=== PATIENT | male | born 1960 | race Caucasian/White ===

== ENCOUNTER 2018-02-28 12:45 | Inpatient (IN) | payer MEDICARE, OTHER ==
[2018-02-28] MEDS ORDERED: oxyCODONE TAB* 5 MG TAB PO ONE (14:45)
[2018-02-28 15:10] LABS: ABS Basophils 0.1 10^3/ul (0-0.2); ABS Eosinophils 0.1 10^3/ul (0-0.6); ABS Lymphocytes 1.3 10^3/ul (1.0-4.8); ABS Monocytes 0.6 10^3/ul (0-0.8); ABS Nucleated RBC 0 10^3/ul; Eosinophil % 1.3 % (0-6); Hematocrit 41 % (42-52); Hemoglobin 14.2 g/dl (14.0-18.0); Lymphocyte % 18.3 % (25-47); Mean Corpuscular HGB Conc 34 g/dl (31-36); Mean Corpuscular Hemoglobin 30 pg (27-31); Mean Corpuscular Volume 88 fL (80-94); Mean Platelet Volume 7.8 um3 (7.4-10.4); Nucleated Red Blood Cells % 0; Platelet Count 261 10^3/ul (150-450); Red Blood Count 4.69 10^6/ul (4.0-5.4); Red Cell Distribution Width 13 % (10.5-15); White Blood Count 7.1 10^3/ul (3.5-10.8)
[2018-02-28 15:28] LABS: EGFR Non-African American 81.7 (>60)
[2018-02-28] MEDS ORDERED: LORazepam TAB(*) 1 MG PO ONE (17:04)
[2018-02-28] MEDS ORDERED: Ketorolac INJ* 30 MG/ML 1 ML VIAL IV PUSH ONE (18:15)
[2018-02-28] MEDS ORDERED: HYDROmorphone INJ* 1 MG/ML CARPUJECT SYRINGE IV ONE ×2 (18:15→21:21)
[2018-02-28] MEDS ORDERED: HYDROmorphone INJ* 2 MG/ML CARPUJECT SYRINGE ONE (18:21)
[2018-02-28] MEDS ORDERED: cefTRIAXone(*) 1 GM in NS 0.9% 50 ML* 50 ML IVPB ONE (21:04)
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
[2018-02-28] MEDS ORDERED: Acetaminophen TAB* 325 MG PO PRN ×2 (22:16→22:25)
[2018-02-28] MEDS ORDERED: HYDROcodone/ACETAMIN 5-325 MG* 1 TAB PO PRN ×2 (22:18→22:25)
[2018-02-28] MEDS ORDERED: Dextrose 50% Syringe 50 ML* 25 GM/50 ML SYRINGE IV PUSH PRN (22:33)
[2018-02-28 22:50] LABS: ABS Basophils 0.1 10^3/ul (0-0.2); ABS Eosinophils 0.1 10^3/ul (0-0.6); ABS Lymphocytes 1.8 10^3/ul (1.0-4.8); ABS Monocytes 0.7 10^3/ul (0-0.8); ABS Neutrophils 4.6 10^3/ul (1.5-7.7); ABS Nucleated RBC 0 10^3/ul; Eosinophil % 1.7 % (0-6); Hematocrit 40 % (42-52); Hemoglobin 13.6 g/dl (14.0-18.0); Lymphocyte % 25.1 % (25-47); Mean Corpuscular HGB Conc 34 g/dl (31-36); Mean Corpuscular Hemoglobin 30 pg (27-31); Mean Corpuscular Volume 89 fL (80-94); Mean Platelet Volume 7.9 um3 (7.4-10.4); Nucleated Red Blood Cells % 0.1; Platelet Count 248 10^3/ul (150-450); Red Blood Count 4.48 10^6/ul (4.0-5.4); Red Cell Distribution Width 13 % (10.5-15); White Blood Count 7.3 10^3/ul (3.5-10.8)
[2018-02-28] MEDS ORDERED: Acetaminophen TAB* 325 MG PO SCH (23:00)
[2018-02-28 23:20] LABS: EGFR Non-African American 71.2 (>60)
[2018-03-01] MEDS: Acetaminophen TAB* 325 MG PO SCH ×3 (00:02→19:43)
[2018-03-01] MEDS: oxyCODONE SR TAB(*) 10 MG TAB.SR PO SCH ×2 (00:02→08:40)
[2018-03-01] MEDS: Enoxaparin(*) 40 MG/0.4 ML SYR SUBCUT SCH ×2 (00:03→21:59)
[2018-03-01] MEDS: traZODone TAB* 100 MG PO PRN (00:03)
[2018-03-01] MEDS: Insulin LISPRO* 1 UNITS UNIT SUBCUT SCH ×5 (00:03→21:58)
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
[2018-03-01 01:48] LABS: Urine Appearance Clear; Urine Blood Negative (Negative); Urine Color Yellow; Urine Ketones Negative (Negative); Urine Protein 2+(100 mg/dL) (Negative); Urine Specific Gravity 1.023 (1.010-1.030); Urine Urobilinogen Negative (Negative)
[2018-03-01] MEDS: HYDROmorphone INJ* 2 MG/ML CARPUJECT SYRINGE IV SLOW PU PRN ×5 (02:03→21:58)
[2018-03-01] MEDS: Levothyroxine TAB* 75 MCG TAB PO SCH (05:53)
--- NOTE | 2018-03-01 07:42 | RAD ---
HISTORY: Pain status post recent fall COMPARISONS: None TECHNIQUE: Multiple contiguous axial CT scans were obtained of the cervical spine without intravenous contrast, with coronal and sagittal multiplanar reformations. FINDINGS: BRAIN: The visualized brain is unremarkable CENTRAL CANAL: Evaluation of the central canal is limited on CT technique; however, there is no obvious canalicular mass or epidural hemorrhage. ALIGNMENT: There is straightening of the cervical lordosis. VERTEBRAL BODIES: The odontoid process is intact. The atlantoaxial intervals are symmetric. The vertebral bodies are normal in attenuation, without fracture. There is multilevel anterolateral marginal osteophyte formation. JOINTS: There is uncovertebral and facet osteoarthritis. There is osteoarthritis of the atlantoaxial articulation. MUSCULATURE: Unremarkable INTERVERTEBRAL DISCS: There is diffuse loss of intervertebral disc height. AXIAL IMAGES: C2-C3: There is mild right neuroforaminal narrowing. There is no osseous central canal stenosis. C3-C4: There is severe bilateral neural foraminal narrowing. There is no osseous central canal stenosis. C4-C5: There is severe bilateral neural foraminal narrowing. There is no osseous central canal stenosis. C5-C6: There is severe right neural foraminal narrowing. There is no osseous central canal stenosis. C6-C7: There is moderate bilateral neural foraminal narrowing. There is no osseous central canal stenosis. C7-T1: There is no osseous neural foraminal narrowing or central canal stenosis. SOFT TISSUES: The visualized soft tissues of the neck are unremarkable. The prevertebral fat stripe is preserved. OTHER: There is a small right mastoid effusion. A right mastoid air cells are coalescent. IMPRESSION: 1. DEGENERATIVE DISC DISEASE AND OSTEOARTHRITIS. 2. NO ACUTE OSSEOUS INJURY OF THE CERVICAL SPINE. 3. FINDINGS SUGGESTIVE OF CHRONIC RIGHT MASTOIDITIS
--- NOTE | 2018-03-01 07:50 | RAD ---
HISTORY: Increasing pain status post fall COMPARISONS: None TECHNIQUE: Multiple contiguous axial CT scans were obtained of the lumbar spine without intravenous contrast, with coronal and sagittal multiplanar reformations. FINDINGS: There is transitional last lumbar type vertebral body which will be labeled S1 for the purposes cavity. Please note that this counting scheme is discordant with the preliminary report. SPINAL CANAL: Evaluation of the central canal is limited on CT technique and by streak artifact from metallic fusion hardware; however, there is no obvious canalicular mass or epidural hemorrhage. ALIGNMENT: The alignment is normal. VERTEBRAL BODIES: There is partial obliteration of the S1 vertebral body. The patient is status post laminectomy with spinal fusion with pedicle screws at L4 and S1. There is no displaced fracture. There is multilevel anterolateral marginal osteophyte formation. JOINTS: There is no subluxation or dislocation. MUSCULATURE: There is fatty atrophy of the inferior extent of the multifidus and erector spinae muscles. INTERVERTEBRAL DISCS: There is diffuse loss of intervertebral disc height throughout the spine. Intervertebral graft material is noted at L4-L5 and L5-S1. AXIAL IMAGES: T11-T12: There is no osseous neural foraminal area or central canal stenosis. T12-L1: There is a left paracentral posterior osteophyte versus calcified disc protrusion. There is no osseous neural foraminal area or central canal stenosis. L1-L2: There is no osseous neural foraminal narrowing or central canal stenosis. L2-L3: There is no osseous neural foraminal narrowing or central canal stenosis. L3-L4: There is marginal osteophyte formation at the neuroforamina bilaterally. There is moderate bilateral neural foraminal narrowing. There is a left paracentral disc protrusion measuring 0.5 cm in depth. Evaluation of the central canal is limited by streak artifact, but there appears to be moderate narrowing of the central canal. L4-L5: A laminectomy defect is noted. There is no osseous neural foraminal narrowing. L5-S1: A laminectomy defect is noted. There is no osseous neural foraminal narrowing. SOFT TISSUES: The visualized soft tissues of the abdomen are unremarkable. OTHER: None IMPRESSION: 1. TRANSITIONAL ANATOMY, WITH THE COUNTING SCHEME DESCRIBED ABOVE. 2. STATUS POST SPINAL FUSION. 3. LEFT-SIDED DISC PROTRUSION AT L3-L4 WITH MODERATE NARROWING OF THE CENTRAL CANAL. 4. MULTILEVEL NEURAL FORAMINAL NARROWING DESCRIBED ABOVE.
--- NOTE | 2018-03-01 07:50 | RAD ---
INDICATION: Increasing back pain status post recent fall. COMPARISON: Correlation is made with prior CTs of the cervical and lumbar spine of the same date. TECHNIQUE: Contiguous axial sections were obtained beginning above the T1 vertebra and scanning through the T11 vertebra. Images were reconstructed in the sagittal and coronal planes. FINDINGS: The vertebra are in normal alignment. No fracture is seen. There is mild to moderate degenerative disc disease in the mid and lower dorsal spine. No significant areas of spinal canal narrowing are seen. Neural foramen appear patent bilaterally at all levels. IMPRESSION: NO EVIDENCE FOR FRACTURE OR SUBLUXATION.
--- NOTE | 2018-03-01 07:51 | RAD ---
HISTORY: Pain status post recent fall COMPARISONS: None VIEWS: 4, Frontal internal rotation, external rotation, outlet, and axillary views of the left shoulder FINDINGS: BONE DENSITY: Normal. BONES: There is no displaced fracture. JOINTS: There is no arthropathy. ALIGNMENT: There is no dislocation. SOFT TISSUES: Unremarkable. OTHER FINDINGS: None. IMPRESSION: NO ACUTE OSSEOUS INJURY. IF SYMPTOMS PERSIST, RECOMMEND REPEAT IMAGING.
--- NOTE | 2018-03-01 07:51 | RAD ---
INDICATION: Right knee injury. TECHNIQUE: 4 views of the right knee were obtained. FINDINGS: The bones are in normal alignment. No joint effusion or fracture is seen. There is moderate osteoarthritic change in the medial and patellofemoral compartments. IMPRESSION: 1. NO EVIDENCE FOR FRACTURE. 2. MODERATE OSTEOARTHRITIC CHANGE.
[2018-03-01] MEDS: hydrALAZINE TAB* 25 MG PO SCH ×2 (08:38→19:44)
[2018-03-01] MEDS: Atenolol TAB* 50 MG PO SCH (08:38)
[2018-03-01] MEDS: Lisinopril TAB* 10 MG PO SCH (08:39)
[2018-03-01] MEDS: Pregabalin CAP(*) 100 MG PO SCH (08:39)
[2018-03-01] MEDS: Atorvastatin* 20 MG TAB PO SCH (08:39)
[2018-03-01] MEDS: Aspirin EC TAB* 81 MG TAB.EC PO SCH (08:39)
[2018-03-01] MEDS ORDERED: DULoxetine DR CAP* 30 MG CAP.DR PO SCH (09:00)
[2018-03-01] MEDS ORDERED: Oxycodone IR 10 MG(NF) TAB PO PRN (11:27)
--- NOTE | 2018-03-01 11:48 | PN ---
Subjective Date of Service: 03/01/18 Interval History: Patient seen and examined. States pain is 9/10, spasm like in nature. States the pain is so severe that he is "ready to bang my head against the wall". Discussed the nature of acute on chronic pain the need to find a balance of medications to help improve his issues. Denies fever, fatigue, chills, some nausea but no vomiting, no chest pain, no SOB, no further complaints. Objective Active Medications: Acetaminophen (Tylenol Tab*) 975 mg PO BID [facility] Stop: 03/03/18 22:59 Last Admin: 03/01/18 08:38 Dose: 975 mg Aspirin (Aspirin Ec Tab*) 81 mg PO DAILY [facility] Last Admin: 03/01/18 08:39 Dose: 81 mg Atenolol (Tenormin Tab*) 50 mg PO DAILY [facility] Last Admin: 03/01/18 08:38 Dose: 50 mg Atorvastatin Calcium (Lipitor*) 20 mg PO DAILY [facility] Last Admin: 03/01/18 08:39 Dose: 20 mg Dextrose (D50w Syringe 50 Ml*) 12.5 gm IV PUSH .FOR FS < 60 - SS PRN PRN Reason: FS < 60 Duloxetine HCl (Cymbalta Cap*) 30 mg PO BID [facility] Enoxaparin Sodium (Lovenox(*)) 40 mg SUBCUT Q24H [facility] Last Admin: 03/01/18 00:03 Dose: 40 mg Hydralazine HCl (Apresoline Tab*) 25 mg PO BID [facility] Last Admin: 03/01/18 08:38 Dose: 25 mg Hydromorphone HCl (Dilaudid Inj*) 0.5 mg IV SLOW PU Q4H PRN PRN Reason: PAIN Last Admin: 03/01/18 05:58 Dose: 0.5 mg Insulin Human Lispro (Humalog*) 0 units SUBCUT ACHS [facility] PRN Reason: Protocol Last Admin: 03/01/18 08:43 Dose: 9 units Levothyroxine Sodium (Synthroid Tab*) 75 mcg PO 0600 [facility] Last Admin: 03/01/18 05:53 Dose: 75 mcg Lisinopril (Prinivil Tab*) 40 mg PO DAILY [facility] Last Admin: 03/01/18 08:39 Dose: 40 mg Oxycodone HCl (Oxycontin(*)) 10 mg PO Q12HR [facility] Last Admin: 03/01/18 08:40 Dose: 10 mg Oxycodone HCl (Roxycodone Tab*) 10 mg PO Q4H PRN PRN Reason: PAIN Pregabalin (Lyrica Cap(*)) 400 mg PO DAILY [facility] Last Admin: 03/01/18 08:39 Dose: 400 mg Trazodone HCl (Desyrel Tab*) 200 mg PO BEDTIME PRN PRN Reason: INSOMNIA Last Admin: 03/01/18 00:03 Dose: 200 mg Vital Signs - 8 hr 03/01/18 03/01/18 03/01/18 04:23 04:36 05:58 Temperature 98.4 F Pulse Rate 65 Respiratory 16 20 20 Rate Blood Pressure 118/50 (mmHg) O2 Sat by Pulse 93 Oximetry 03/01/18 03/01/18 03/01/18 08:08 08:39 08:40 Temperature 98.3 F Pulse Rate 77 Respiratory 17 16 16 Rate Blood Pressure 142/76 (mmHg) O2 Sat by Pulse 95 Oximetry Oxygen Devices in Use Now: None Appearance: Alert, mild distress, well appearing Eyes: No Scleral Icterus, PERRLA Ears/Nose/Mouth/Throat: NL Teeth, Lips, Gums, Mucous Membranes Moist Neck: NL Appearance and Movements; NL JVP, Trachea Midline Respiratory: Symmetrical Chest Expansion and Respiratory Effort, Clear to Auscultation Cardiovascular: NL Sounds; No Murmurs; No JVD, RRR Abdominal: NL Sounds; No Tenderness; No Distention Extremities: No Edema, No Clubbing, Cyanosis Skin: No Rash or Ulcers Neurological: Alert and Oriented x 3, NL Gait, NL Muscle Strength and Tone Nutrition: Taking PO's Result Diagrams: 02/28/18 22:43 02/28/18 22:43 Additional Lab and Data: Lab Results 02/28/18 02/28/18 Range/Units 14:57 14:57 WBC 7.1 (3.5-10.8) 10^3/ul RBC 4.69 (4.0-5.4) 10^6/ul Hgb 14.2 (14.0-18.0) g/dl Hct 41 L (42-52) % MCV 88 (80-94) fL MCH 30 (27-31) pg MCHC 34 (31-36) g/dl RDW 13 (10.5-15) % Plt Count 261 (150-450) 10^3/ul MPV 7.8 (7.4-10.4) um3 Neut % (Auto) 70.7 (38-83) % Lymph % (Auto) 18.3 L (25-47) % [place] % (Auto) 8.9 H (0-7) % Eos % (Auto) 1.3 (0-6) % Baso % (Auto) 0.8 (0-2) % Absolute Neuts (auto) 5.0 (1.5-7.7) 10^3/ul Absolute Lymphs (auto) 1.3 (1.0-4.8) 10^3/ul Absolute Monos (auto) 0.6 (0-0.8) 10^3/ul Absolute Eos (auto) 0.1 (0-0.6) 10^3/ul Absolute Basos (auto) 0.1 (0-0.2) 10^3/ul Absolute Nucleated RBC 0 10^3/ul Nucleated RBC % 0 Sodium 133 L (139-145) mmol/L Potassium 4.3 (3.5-5.0) mmol/L Chloride 97 L (101-111) mmol/L Carbon Dioxide 25 (22-32) mmol/L Anion Gap 11 (2-11) mmol/L BUN 17 (6-24) mg/dL Creatinine 0.95 (0.67-1.17) mg/dL Est GFR ( Amer) 105.1 (>60) Est GFR (Non-Af Amer) 81.7 (>60) BUN/Creatinine Ratio 17.9 (8-20) Glucose 162 H (70-100) mg/dL Calcium 9.9 (8.6-10.3) mg/dL Total Bilirubin 0.40 (0.2-1.0) mg/dL AST 17 (13-39) U/L ALT 20 (7-52) U/L Alkaline Phosphatase 39 (34-104) U/L C-Reactive Protein 1.82 (< 5.00) mg/L Total Protein 7.8 (6.4-8.9) g/dL Albumin 4.8 (3.2-5.2) g/dL Globulin 3.0 (2-4) g/dL Albumin/Globulin Ratio 1.6 (1-3) Diagnostic Imaging: Patient Name: JEROME BENJAMIN JR Medical Record#: [id number] Ordering Physician: Trey Michel MD Acct.#: [id number] : 1960 Age: 57 Sex: M Location: [address] [place] [address]/TELEMETRY Exam Date: 02/28/182227 ADM Status: ADM Linnea Order Information: CT SPINE CERVICAL W/O Accession Number: [id number] CPT: 92582 HISTORY: Pain status post recent fall COMPARISONS: None TECHNIQUE: Multiple contiguous axial CT scans were obtained of the cervical spine without intravenous contrast, with coronal and sagittal multiplanar reformations. FINDINGS: BRAIN: The visualized brain is unremarkable CENTRAL CANAL: Evaluation of the central canal is limited on CT technique; however, there is no obvious canalicular mass or epidural hemorrhage. ALIGNMENT: There is straightening of the cervical lordosis. VERTEBRAL BODIES: The odontoid process is intact. The atlantoaxial intervals are symmetric. The vertebral bodies are normal in attenuation, without fracture. There is multilevel anterolateral marginal osteophyte formation. JOINTS: There is uncovertebral and facet osteoarthritis. There is osteoarthritis of the atlantoaxial articulation. MUSCULATURE: Unremarkable INTERVERTEBRAL DISCS: There is diffuse loss of intervertebral disc height. AXIAL IMAGES: C2-C3: There is mild right neuroforaminal narrowing. There is no osseous central canal stenosis. C3-C4: There is severe bilateral neural foraminal narrowing. There is no osseous central canal stenosis. C4-C5: There is severe bilateral neural foraminal narrowing. There is no osseous central canal stenosis. C5-C6: There is severe right neural foraminal narrowing. There is no osseous central canal stenosis. C6-C7: There is moderate bilateral neural foraminal narrowing. There is no osseous central canal stenosis. C7-T1: There is no osseous neural foraminal narrowing or central canal stenosis. SOFT TISSUES: The visualized soft tissues of the neck are unremarkable. The prevertebral fat stripe is preserved. OTHER: There is a small right mastoid effusion. A right mastoid air cells are coalescent. IMPRESSION: 1. DEGENERATIVE DISC DISEASE AND OSTEOARTHRITIS. 2. NO ACUTE OSSEOUS INJURY OF THE CERVICAL SPINE. 3. FINDINGS SUGGESTIVE OF CHRONIC RIGHT MASTOIDITIS <Electronically signed by Abhishek Mcgowan MD in [place]> 03/01/18738 Dictated By: Abhishek Mcgowan MD Dictated Date/Time: 03/01/18738 Transcribed Date/Time: 03/01/18734 Copy to: 1 of 2 Patient Name: JEROME BENJAMIN JR Medical Record#: [id number] Ordering Physician: Trey Michel MD Acct.#: [id number] : 1960 Age: 57 Sex: M Location: [facility]/TELEMET[facility] Exam Date: 02/28/182227 ADM Status: ADM Linnea Order Information: CT SPINE THORACIC W/O Accession Number: [id number] CPT: 08114 INDICATION: Increasing back pain status post recent fall. COMPARISON: Correlation is made with prior CTs of the cervical and lumbar spine of the same date. TECHNIQUE: Contiguous axial sections were obtained beginning above the T1 vertebra and scanning through the T11 vertebra. Images were reconstructed in the sagittal and coronal planes. FINDINGS: The vertebra are in normal alignment. No fracture is seen. There is mild to moderate degenerative disc disease in the mid and lower dorsal spine. No significant areas of spinal canal narrowing are seen. Neural foramen appear patent bilaterally at all levels. IMPRESSION: NO EVIDENCE FOR FRACTURE OR SUBLUXATION. <Electronically signed by Evert Almonte MD in [place]> 03/01/18745 Dictated By: Evert Almonte MD Dictated Date/Time: 03/01/18745 Transcribed Date/Time: 03/01/18739 Copy to: Patient Name: JEROME BENJAMIN JR Medical Record#: [id number] Ordering Physician: Trey Michel MD Acct.#: [id number] : 1960 Age: 57 Sex: M Location: [facility] Exam Date: 02/28/182227 ADM Status: ADM Linnea Order Information: CT SPINE LUMBAR W/O Accession Number: [id number] CPT: 23907 HISTORY: Increasing pain status post fall COMPARISONS: None TECHNIQUE: Multiple contiguous axial CT scans were obtained of the lumbar spine without intravenous contrast, with coronal and sagittal multiplanar reformations. FINDINGS: There is transitional last lumbar type vertebral body which will be labeled S1 for the purposes cavity. Please note that this counting scheme is discordant with the preliminary report. SPINAL CANAL: Evaluation of the central canal is limited on CT technique and by streak artifact from metallic fusion hardware; however, there is no obvious canalicular mass or epidural hemorrhage. ALIGNMENT: The alignment is normal. VERTEBRAL BODIES: There is partial obliteration of the S1 vertebral body. The patient is status post laminectomy with spinal fusion with pedicle screws at L4 and S1. There is no displaced fracture. There is multilevel anterolateral marginal osteophyte formation. JOINTS: There is no subluxation or dislocation. MUSCULATURE: There is fatty atrophy of the inferior extent of the multifidus and erector spinae muscles. INTERVERTEBRAL DISCS: There is diffuse loss of intervertebral disc height throughout the spine. Intervertebral graft material is noted at L4-L5 and L5-S1. AXIAL IMAGES: T11-T12: There is no osseous neural foraminal area or central canal stenosis. T12-L1: There is a left paracentral posterior osteophyte versus calcified disc protrusion. There is no osseous neural foraminal area or central canal stenosis. L1-L2: There is no osseous neural foraminal narrowing or central canal stenosis. L2-L3: There is no osseous neural foraminal narrowing or central canal stenosis. L3-L4: There is marginal osteophyte formation at the neuroforamina bilaterally. There is moderate bilateral neural foraminal narrowing. There is a left paracentral disc protrusion measuring 0.5 cm in depth. Evaluation of the central canal is limited by streak artifact, but there appears to be moderate narrowing of the central canal. L4-L5: A laminectomy defect is noted. There is no osseous neural foraminal narrowing. L5-S1: A laminectomy defect is noted. There is no osseous neural foraminal narrowing. SOFT TISSUES: The visualized soft tissues of the abdomen are unremarkable. OTHER: None IMPRESSION: 1. TRANSITIONAL ANATOMY, WITH THE COUNTING SCHEME DESCRIBED ABOVE. 2. STATUS POST SPINAL FUSION. 3. LEFT-SIDED DISC PROTRUSION AT L3-L4 WITH MODERATE NARROWING OF THE CENTRAL CANAL. 4. MULTILEVEL NEURAL FORAMINAL NARROWING DESCRIBED ABOVE. <Electronically signed by Abhishek Mcgowan MD in [place]> 03/01/18745 Dictated By: Abhishek Mcgowan MD Dictated Date/Time: 03/01/18745 Transcribed Date/Time: 03/01/18740 1 of 2 Assess/Plan/Problems-Billing Assessment: This is a 58 year old male patient with history of trauma that presents s/p mechanical fall and now with intractable spine pain. - Patient Problems (1) Acute exacerbation of chronic low back pain Code(s): M54.5 - LOW BACK PAIN; G89.29 - OTHER CHRONIC PAIN SNOMED Code(s): 848900863 Comment: - Currently under poor control since fall - Meds adjusted, will continue IV dilaudid, oxycodone 10mg Q4h PRN, oxycontin BID, lyrica 400mg daily, increase cymbalta to BID, tylenol 975mg BID, - May trial valium for spasms if no better with added oxycodone - Patient was on fentanyl patch in the past, wishes to not be on a patch - CT scans as above, should f/u outpatient with NS if he needs any revision surgery (2) History of traumatic brain injury Code(s): Z87.820 - PERSONAL HISTORY OF TRAUMATIC BRAIN INJURY SNOMED Code(s): 46975486668183 Comment: - stable (3) HTN (hypertension) Code(s): I10 - ESSENTIAL (PRIMARY) HYPERTENSION SNOMED Code(s): 72209314 Comment: - BP stable on home regimen of atenolol and lisinopril (4) G6PD deficiency Code(s): D55.0 - ANEMIA DUE TO [id number] DEHYDROGENASE DEFICIENCY SNOMED Code(s): 926284447 Comment: - Labs stable (5) Hypothyroid Code(s): E03.9 - HYPOTHYROIDISM, UNSPECIFIED SNOMED Code(s): 82738012 Comment: - Continue synthroid (6) History of pituitary adenoma Code(s): Z86.39 - PERSONAL HISTORY OF ENDO, NUTRITIONAL AND METABOLIC DISEASE SNOMED Code(s): 357770197730509 Comment: - Stable Status and Disposition: Remain inpatient for further medication titration, open for PT eval.
[2018-03-01] MEDS: oxyCODONE TAB* 5 MG TAB PO PRN ×2 (11:51→16:37)
[2018-03-01] MEDS ORDERED: Magnesium Hydroxide LIQ* 30 ML UDC PO PRN (17:46)
[2018-03-01] MEDS: Diazepam TAB(*) 5 MG PO PRN (17:53)
[2018-03-01] MEDS: DULoxetine DR CAP* 30 MG CAP.DR PO SCH (19:43)
[2018-03-01] MEDS: Docusate CAP* 100 MG PO SCH (19:45)
[2018-03-01] MEDS ORDERED: oxyCODONE SR TAB(*) 10 MG TAB.SR PO SCH ×2 (19:47→21:00)
--- NOTE | 2018-03-01 19:49 | PN ---
Hospitalist Progress Note Date of Service: 03/01/18 RN informed my person that patient's pain is still uncontrolled and frequently asks for meds before they are due despite recent changes on admission. Reviewed meds and labs as well as current plan. Will increase Oxycontin to 15 mg PO BID and will provide Oxycodone SR 5 mg PO TID x 2 days, with appropriate holding orders, then observe.
[2018-03-01] MEDS: oxyCODONE TAB* 5 MG TAB PO SCH (20:58)
[2018-03-01] MEDS: oxyCODONE SR TAB(*) 15 MG TAB.SR PO SCH (20:58)
[2018-03-01] MEDS ORDERED: oxyCODONE SR TAB(*) 15 MG TAB.SR PO SCH ×2 (21:00)
[2018-03-02] MEDS: oxyCODONE TAB* 5 MG TAB PO PRN ×4 (00:31→23:46)
[2018-03-02] MEDS: HYDROmorphone INJ* 2 MG/ML CARPUJECT SYRINGE IV SLOW PU PRN ×3 (02:04→20:57)
[2018-03-02] MEDS: Levothyroxine TAB* 75 MCG TAB PO SCH (04:55)
[2018-03-02] MEDS: Insulin LISPRO* 1 UNITS UNIT SUBCUT SCH ×4 (09:11→20:56)
[2018-03-02] MEDS: hydrALAZINE TAB* 25 MG PO SCH ×2 (09:11→20:56)
[2018-03-02] MEDS: DULoxetine DR CAP* 30 MG CAP.DR PO SCH ×2 (09:11→20:54)
[2018-03-02] MEDS: oxyCODONE TAB* 5 MG TAB PO SCH ×2 (09:11→12:45)
[2018-03-02] MEDS: Atorvastatin* 20 MG TAB PO SCH (09:11)
[2018-03-02] MEDS: Lisinopril TAB* 10 MG PO SCH (09:12)
[2018-03-02] MEDS: Acetaminophen TAB* 325 MG PO SCH ×2 (09:12→20:55)
[2018-03-02] MEDS: Aspirin EC TAB* 81 MG TAB.EC PO SCH (09:12)
[2018-03-02] MEDS: oxyCODONE SR TAB(*) 15 MG TAB.SR PO SCH ×2 (09:12→20:55)
[2018-03-02] MEDS: Docusate CAP* 100 MG PO SCH ×2 (09:12→20:54)
[2018-03-02] MEDS: Atenolol TAB* 50 MG PO SCH (09:13)
[2018-03-02] MEDS: Pregabalin CAP(*) 100 MG PO SCH (09:13)
[2018-03-02] MEDS ORDERED: Dexamethasone IV* 4 MG/ML 1 ML (4 MG) IV SLOW PU ONE (10:47)
[2018-03-02] MEDS ORDERED: Diazepam INJ (NF) 5 MG/ML 10 ML VIAL (50 MG TOTAL) IV ONE (10:48)
--- NOTE | 2018-03-02 11:07 | PN ---
Subjective Date of Service: 03/02/18 Interval History: PAtient seen and examined. Still with extreme spasm and breakthrough pain. States at one point around 2 am he had some relief but this AM it became worse again. He shows no acute neuro deficits, denies SOB, no chest pain, no vomiting , intermittent nausea when pain increases. Objective Active Medications: Acetaminophen (Tylenol Tab*) 975 mg PO BID [facility] Stop: 03/03/18 22:59 Last Admin: 03/02/18 09:12 Dose: 975 mg Aspirin (Aspirin Ec Tab*) 81 mg PO DAILY [facility] Last Admin: 03/02/18 09:12 Dose: 81 mg Atenolol (Tenormin Tab*) 50 mg PO DAILY [facility] Last Admin: 03/02/18 09:13 Dose: 50 mg Atorvastatin Calcium (Lipitor*) 20 mg PO DAILY [facility] Last Admin: 03/02/18 09:11 Dose: 20 mg Dextrose (D50w Syringe 50 Ml*) 12.5 gm IV PUSH .FOR FS < 60 - SS PRN PRN Reason: FS < 60 Diazepam (Valium Tab(*)) 5 mg PO Q8H PRN PRN Reason: back spasms Last Admin: 03/01/18 17:53 Dose: 5 mg Diazepam (Valium Syringe*) 2 mg IV ONCE ONE Stop: 03/02/18 10:49 Docusate Sodium (Colace Cap*) 100 mg PO BID [facility] Last Admin: 03/02/18 09:12 Dose: 100 mg Duloxetine HCl (Cymbalta Cap*) 30 mg PO BID [facility] Last Admin: 03/02/18 09:11 Dose: 30 mg Enoxaparin Sodium (Lovenox(*)) 40 mg SUBCUT Q24H [facility] Last Admin: 03/01/18 21:59 Dose: 40 mg Hydralazine HCl (Apresoline Tab*) 25 mg PO BID [facility] Last Admin: 03/02/18 09:11 Dose: 25 mg Insulin Human Lispro (Humalog*) 0 units SUBCUT ACHS [facility] PRN Reason: Protocol Last Admin: 03/02/18 09:11 Dose: 3 units Levothyroxine Sodium (Synthroid Tab*) 75 mcg PO 0600 [facility] Last Admin: 03/02/18 04:55 Dose: 75 mcg Lisinopril (Prinivil Tab*) 40 mg PO DAILY [facility] Last Admin: 03/02/18 09:12 Dose: 40 mg Magnesium Hydroxide (Milk Of Magnesia Liq*) 30 ml PO BID PRN PRN Reason: CONSTIPATION Ondansetron HCl (Zofran Odt Tab*) 4 mg PO Q6H PRN PRN Reason: NAUSEA/VOMITING Oxycodone HCl (Roxycodone Tab*) 10 mg PO Q4H PRN PRN Reason: PAIN Last Admin: 03/02/18 04:55 Dose: 10 mg Oxycodone HCl (Oxycontin(*)) 15 mg PO Q12HR [facility] Last Admin: 03/02/18 09:12 Dose: 15 mg Oxycodone HCl (Roxycodone Tab*) 5 mg PO TID [facility] Stop: 03/02/18 20:59 Last Admin: 03/02/18 09:11 Dose: 5 mg Pregabalin (Lyrica Cap(*)) 400 mg PO DAILY [facility] Last Admin: 03/02/18 09:13 Dose: 400 mg Trazodone HCl (Desyrel Tab*) 200 mg PO BEDTIME PRN PRN Reason: INSOMNIA Last Admin: 03/01/18 00:03 Dose: 200 mg Vital Signs - 8 hr 03/02/18 03/02/18 03/02/18 03:39 04:15 04:55 Temperature 97.7 F Pulse Rate 68 Respiratory 12 16 12 Rate Blood Pressure 123/65 (mmHg) O2 Sat by Pulse 95 Oximetry 03/02/18 03/02/18 03/02/18 06:30 07:55 08:40 Temperature 98.5 F Pulse Rate 69 Respiratory 12 16 14 Rate Blood Pressure 150/76 (mmHg) O2 Sat by Pulse 97 Oximetry 03/02/18 03/02/18 03/02/18 09:11 09:12 09:13 Temperature Pulse Rate Respiratory 14 14 16 Rate Blood Pressure (mmHg) O2 Sat by Pulse Oximetry Oxygen Devices in Use Now: None Appearance: Alert, mild distress Eyes: No Scleral Icterus, PERRLA Ears/Nose/Mouth/Throat: NL Teeth, Lips, Gums, Mucous Membranes Moist Neck: NL Appearance and Movements; NL JVP, Trachea Midline Respiratory: Symmetrical Chest Expansion and Respiratory Effort, Clear to Auscultation Cardiovascular: NL Sounds; No Murmurs; No JVD, RRR, No Edema Abdominal: NL Sounds; No Tenderness; No Distention Extremities: No Edema, No Clubbing, Cyanosis Skin: No Rash or Ulcers, - - mildly diaphoretic Neurological: Alert and Oriented x 3, NL Sensation, NL Gait, NL Muscle Strength and Tone Nutrition: Taking PO's Result Diagrams: 02/28/18 22:43 02/28/18 22:43 Additional Lab and Data: Lab Results 02/28/18 02/28/18 Range/Units 14:57 14:57 WBC 7.1 (3.5-10.8) 10^3/ul RBC 4.69 (4.0-5.4) 10^6/ul Hgb 14.2 (14.0-18.0) g/dl Hct 41 L (42-52) % MCV 88 (80-94) fL MCH 30 (27-31) pg MCHC 34 (31-36) g/dl RDW 13 (10.5-15) % Plt Count 261 (150-450) 10^3/ul MPV 7.8 (7.4-10.4) um3 Neut % (Auto) 70.7 (38-83) % Lymph % (Auto) 18.3 L (25-47) % Elbert % (Auto) 8.9 H (0-7) % Eos % (Auto) 1.3 (0-6) % Baso % (Auto) 0.8 (0-2) % Absolute Neuts (auto) 5.0 (1.5-7.7) 10^3/ul Absolute Lymphs (auto) 1.3 (1.0-4.8) 10^3/ul Absolute Monos (auto) 0.6 (0-0.8) 10^3/ul Absolute Eos (auto) 0.1 (0-0.6) 10^3/ul Absolute Basos (auto) 0.1 (0-0.2) 10^3/ul Absolute Nucleated RBC 0 10^3/ul Nucleated RBC % 0 Sodium 133 L (139-145) mmol/L Potassium 4.3 (3.5-5.0) mmol/L Chloride 97 L (101-111) mmol/L Carbon Dioxide 25 (22-32) mmol/L Anion Gap 11 (2-11) mmol/L BUN 17 (6-24) mg/dL Creatinine 0.95 (0.67-1.17) mg/dL Est GFR ( Amer) 105.1 (>60) Est GFR (Non-Af Amer) 81.7 (>60) BUN/Creatinine Ratio 17.9 (8-20) Glucose 162 H (70-100) mg/dL Calcium 9.9 (8.6-10.3) mg/dL Total Bilirubin 0.40 (0.2-1.0) mg/dL AST 17 (13-39) U/L ALT 20 (7-52) U/L Alkaline Phosphatase 39 (34-104) U/L C-Reactive Protein 1.82 (< 5.00) mg/L Total Protein 7.8 (6.4-8.9) g/dL Albumin 4.8 (3.2-5.2) g/dL Globulin 3.0 (2-4) g/dL Albumin/Globulin Ratio 1.6 (1-3) Diagnostic Imaging: Patient Name: JEROME BENJAMIN JR Medical Record#: [id number] Ordering Physician: Trey Michel MD Acct.#: [id number] : 1960 Age: 57 Sex: M Location: [address] [place] [address]/TELEMETRY Exam Date: 02/28/182227 ADM Status: ADM Linnea Order Information: CT SPINE CERVICAL W/O Accession Number: [id number] CPT: 78722 HISTORY: Pain status post recent fall COMPARISONS: None TECHNIQUE: Multiple contiguous axial CT scans were obtained of the cervical spine without intravenous contrast, with coronal and sagittal multiplanar reformations. FINDINGS: BRAIN: The visualized brain is unremarkable CENTRAL CANAL: Evaluation of the central canal is limited on CT technique; however, there is no obvious canalicular mass or epidural hemorrhage. ALIGNMENT: There is straightening of the cervical lordosis. VERTEBRAL BODIES: The odontoid process is intact. The atlantoaxial intervals are symmetric. The vertebral bodies are normal in attenuation, without fracture. There is multilevel anterolateral marginal osteophyte formation. JOINTS: There is uncovertebral and facet osteoarthritis. There is osteoarthritis of the atlantoaxial articulation. MUSCULATURE: Unremarkable INTERVERTEBRAL DISCS: There is diffuse loss of intervertebral disc height. AXIAL IMAGES: C2-C3: There is mild right neuroforaminal narrowing. There is no osseous central canal stenosis. C3-C4: There is severe bilateral neural foraminal narrowing. There is no osseous central canal stenosis. C4-C5: There is severe bilateral neural foraminal narrowing. There is no osseous central canal stenosis. C5-C6: There is severe right neural foraminal narrowing. There is no osseous central canal stenosis. C6-C7: There is moderate bilateral neural foraminal narrowing. There is no osseous central canal stenosis. C7-T1: There is no osseous neural foraminal narrowing or central canal stenosis. SOFT TISSUES: The visualized soft tissues of the neck are unremarkable. The prevertebral fat stripe is preserved. OTHER: There is a small right mastoid effusion. A right mastoid air cells are coalescent. IMPRESSION: 1. DEGENERATIVE DISC DISEASE AND OSTEOARTHRITIS. 2. NO ACUTE OSSEOUS INJURY OF THE CERVICAL SPINE. 3. FINDINGS SUGGESTIVE OF CHRONIC RIGHT MASTOIDITIS <Electronically signed by Abhishek Mcgowan MD in [place]> 03/01/18738 Dictated By: Abhishek Mcgowan MD Dictated Date/Time: 03/01/18738 Transcribed Date/Time: 03/01/18734 Copy to: 1 of 2 Patient Name: JEROME BENJAMIN JR Medical Record#: [id number] Ordering Physician: rTey Michel MD Acct.#: [id number] : 1960 Age: 57 Sex: M Location: [address] [place] [address] MEDICAL/TELEMETRY Exam Date: 02/28/182227 ADM Status: ADM Linnea Order Information: CT SPINE THORACIC W/O Accession Number: [id number] CPT: 13717 INDICATION: Increasing back pain status post recent fall. COMPARISON: Correlation is made with prior CTs of the cervical and lumbar spine of the same date. TECHNIQUE: Contiguous axial sections were obtained beginning above the T1 vertebra and scanning through the T11 vertebra. Images were reconstructed in the sagittal and coronal planes. FINDINGS: The vertebra are in normal alignment. No fracture is seen. There is mild to moderate degenerative disc disease in the mid and lower dorsal spine. No significant areas of spinal canal narrowing are seen. Neural foramen appear patent bilaterally at all levels. IMPRESSION: NO EVIDENCE FOR FRACTURE OR SUBLUXATION. <Electronically signed by Evert Almonte MD in [place]> 03/01/18745 Dictated By: Evert Almonte MD Dictated Date/Time: 03/01/18745 Transcribed Date/Time: 03/01/18739 Copy to: Patient Name: JEROME BENJAMIN JR Medical Record#: [id number] Ordering Physician: Trey Michel MD Acct.#: [id number] : 1960 Age: 57 Sex: M Location: [address] [place] [address] MEDICAL/TELEMETRY Exam Date: 02/28/182227 ADM Status: ADM Linnea Order Information: CT SPINE LUMBAR W/O Accession Number: [id number] CPT: 96424 HISTORY: Increasing pain status post fall COMPARISONS: None TECHNIQUE: Multiple contiguous axial CT scans were obtained of the lumbar spine without intravenous contrast, with coronal and sagittal multiplanar reformations. FINDINGS: There is transitional last lumbar type vertebral body which will be labeled S1 for the purposes cavity. Please note that this counting scheme is discordant with the preliminary report. SPINAL CANAL: Evaluation of the central canal is limited on CT technique and by streak artifact from metallic fusion hardware; however, there is no obvious canalicular mass or epidural hemorrhage. ALIGNMENT: The alignment is normal. VERTEBRAL BODIES: There is partial obliteration of the S1 vertebral body. The patient is status post laminectomy with spinal fusion with pedicle screws at L4 and S1. There is no displaced fracture. There is multilevel anterolateral marginal osteophyte formation. JOINTS: There is no subluxation or dislocation. MUSCULATURE: There is fatty atrophy of the inferior extent of the multifidus and erector spinae muscles. INTERVERTEBRAL DISCS: There is diffuse loss of intervertebral disc height throughout the spine. Intervertebral graft material is noted at L4-L5 and L5-S1. AXIAL IMAGES: T11-T12: There is no osseous neural foraminal area or central canal stenosis. T12-L1: There is a left paracentral posterior osteophyte versus calcified disc protrusion. There is no osseous neural foraminal area or central canal stenosis. L1-L2: There is no osseous neural foraminal narrowing or central canal stenosis. L2-L3: There is no osseous neural foraminal narrowing or central canal stenosis. L3-L4: There is marginal osteophyte formation at the neuroforamina bilaterally. There is moderate bilateral neural foraminal narrowing. There is a left paracentral disc protrusion measuring 0.5 cm in depth. Evaluation of the central canal is limited by streak artifact, but there appears to be moderate narrowing of the central canal. L4-L5: A laminectomy defect is noted. There is no osseous neural foraminal narrowing. L5-S1: A laminectomy defect is noted. There is no osseous neural foraminal narrowing. SOFT TISSUES: The visualized soft tissues of the abdomen are unremarkable. OTHER: None IMPRESSION: 1. TRANSITIONAL ANATOMY, WITH THE COUNTING SCHEME DESCRIBED ABOVE. 2. STATUS POST SPINAL FUSION. 3. LEFT-SIDED DISC PROTRUSION AT L3-L4 WITH MODERATE NARROWING OF THE CENTRAL CANAL. 4. MULTILEVEL NEURAL FORAMINAL NARROWING DESCRIBED ABOVE. <Electronically signed by Abhishek Mcgowan MD in [place]> 03/01/18745 Dictated By: Abhishek Mcgowan MD Dictated Date/Time: 03/01/18745 Transcribed Date/Time: 03/01/18740 1 of 2 Assess/Plan/Problems-Billing Assessment: This is a 58 year old male patient with history of trauma that presents s/p mechanical fall and now with intractable spine pain. - Patient Problems (1) Acute exacerbation of chronic low back pain Code(s): M54.5 - LOW BACK PAIN; G89.29 - OTHER CHRONIC PAIN SNOMED Code(s): 239391343 Comment: - Remains with poor control since admission - Currently on oxycodone 10mg Q4h PRN, oxycontin 15mg BID, lyrica 400mg daily, increased cymbalta to BID, tylenol 975mg BID, added valium yesterday - Had added doses of oxy TID overnight - Patient was on fentanyl patch in the past, wishes to not be on a patch - CT scans as above, should f/u outpatient with [facility] if he needs any revision surgery, no evidence of cord compression at this time - Will give one dose IV decadron now with one dose IV valium to control spasms , monitor for effect - Discussed with pain clinic, will consult Dr. Moore for additional recs for DC planning - Discussed f/u with neurosurgery at the [facility], patient agreeable (2) History of traumatic brain injury Code(s): Z87.820 - PERSONAL HISTORY OF TRAUMATIC BRAIN INJURY SNOMED Code(s): 93374318589944 Comment: - stable (3) HTN (hypertension) Code(s): I10 - ESSENTIAL (PRIMARY) HYPERTENSION SNOMED Code(s): 13301664 Comment: - BP stable on home regimen of atenolol and lisinopril (4) G6PD deficiency Code(s): D55.0 - ANEMIA DUE TO OFSPONM-2-KLRIZMCCN DEHYDROGENASE DEFICIENCY SNOMED Code(s): 508578965 Comment: - Labs stable (5) Hypothyroid Code(s): E03.9 - HYPOTHYROIDISM, UNSPECIFIED SNOMED Code(s): 04025184 Comment: - Continue synthroid (6) History of pituitary adenoma Code(s): Z86.39 - PERSONAL HISTORY OF ENDO, NUTRITIONAL AND METABOLIC DISEASE SNOMED Code(s): 091816197846632 Comment: - Stable Status and Disposition: Dispo planning to home if pain improves today with f/u at [facility] and the [facility]. [facility] needs to make referral for Pain Clinic, we cannot do as inpatient.
[2018-03-02] MEDS: Ondansetron ODT TAB* 4 MG PO PRN ×2 (12:45→20:56)
[2018-03-02] MEDS: Diazepam TAB(*) 5 MG PO PRN (16:52)
[2018-03-02] MEDS: traZODone TAB* 100 MG PO PRN (21:59)
[2018-03-02] MEDS: Enoxaparin(*) 40 MG/0.4 ML SYR SUBCUT SCH (21:59)
[2018-03-03] MEDS ORDERED: Ibuprofen TAB* 800 MG PO ONE (01:13)
[2018-03-03] MEDS: Levothyroxine TAB* 75 MCG TAB PO SCH (05:37)
[2018-03-03] MEDS: oxyCODONE SR TAB(*) 15 MG TAB.SR PO SCH (07:41)
[2018-03-03] MEDS: Pregabalin CAP(*) 100 MG PO SCH (07:41)
[2018-03-03] MEDS: DULoxetine DR CAP* 30 MG CAP.DR PO SCH ×2 (07:41→20:45)
[2018-03-03] MEDS: hydrALAZINE TAB* 25 MG PO SCH ×2 (07:41→22:02)
[2018-03-03] MEDS: Acetaminophen TAB* 325 MG PO SCH ×2 (07:41→20:45)
[2018-03-03] MEDS: Atenolol TAB* 50 MG PO SCH (07:41)
[2018-03-03] MEDS: Lisinopril TAB* 10 MG PO SCH (07:41)
[2018-03-03] MEDS: Docusate CAP* 100 MG PO SCH ×2 (07:42→20:44)
[2018-03-03] MEDS: Aspirin EC TAB* 81 MG TAB.EC PO SCH (07:42)
[2018-03-03] MEDS: Atorvastatin* 20 MG TAB PO SCH (07:42)
[2018-03-03] MEDS: Insulin LISPRO* 1 UNITS UNIT SUBCUT SCH ×4 (07:59→20:56)
[2018-03-03] MEDS: HYDROmorphone INJ* 2 MG/ML CARPUJECT SYRINGE IV SLOW PU PRN (09:35)
[2018-03-03] MEDS: oxyCODONE TAB* 5 MG TAB PO PRN ×3 (10:33→19:15)
[2018-03-03] MEDS: Diazepam TAB(*) 5 MG PO PRN (10:33)
[2018-03-03] MEDS ORDERED: Pneumococcal *Vac Polyvalent 0.5 ML VIAL IM ONE (16:00)
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
[2018-03-03] MEDS: Methocarbamol TAB* 500 MG PO SCH ×2 (17:04→20:47)
[2018-03-03] MEDS: oxyCODONE SR TAB(*) 20 MG TAB.SR PO SCH (20:44)
[2018-03-03] MEDS: traZODone TAB* 100 MG PO PRN (20:45)
[2018-03-03] MEDS ORDERED: Methocarbamol TAB* 500 MG PO SCH (21:00)
[2018-03-03] MEDS ORDERED: Morphine VIAL* 4 MG/ML VIAL (1 ml vial) IV ONE (21:30)
[2018-03-03] MEDS: Enoxaparin(*) 40 MG/0.4 ML SYR SUBCUT SCH (22:03)
[2018-03-04] MEDS: Levothyroxine TAB* 75 MCG TAB PO SCH (06:03)
[2018-03-04] MEDS: Methocarbamol TAB* 500 MG PO SCH ×2 (08:42→14:32)
[2018-03-04] MEDS: Atenolol TAB* 50 MG PO SCH (08:42)
[2018-03-04] MEDS: DULoxetine DR CAP* 30 MG CAP.DR PO SCH (08:43)
[2018-03-04] MEDS: oxyCODONE TAB* 5 MG TAB PO PRN ×2 (08:43→12:34)
[2018-03-04] MEDS: hydrALAZINE TAB* 25 MG PO SCH (08:43)
[2018-03-04] MEDS: Lisinopril TAB* 10 MG PO SCH (08:43)
[2018-03-04] MEDS: Docusate CAP* 100 MG PO SCH (08:44)
[2018-03-04] MEDS: oxyCODONE SR TAB(*) 20 MG TAB.SR PO SCH (08:44)
[2018-03-04] MEDS: Atorvastatin* 20 MG TAB PO SCH (08:44)
[2018-03-04] MEDS: Aspirin EC TAB* 81 MG TAB.EC PO SCH (08:44)
[2018-03-04] MEDS: Pregabalin CAP(*) 100 MG PO SCH (08:45)
[2018-03-04] MEDS: Insulin LISPRO* 1 UNITS UNIT SUBCUT SCH ×2 (08:48→12:36)
[2018-03-04] MEDS: Ondansetron ODT TAB* 4 MG PO PRN (09:52)
[2018-03-04] MEDS ORDERED: Morphine VIAL* 4 MG/ML VIAL (1 ml vial) IV ONE (10:12)
[2018-03-04 10:37] LABS: ABS Basophils 0.1 10^3/ul (0-0.2); ABS Eosinophils 0.1 10^3/ul (0-0.6); ABS Lymphocytes 1.8 10^3/ul (1.0-4.8); ABS Monocytes 0.8 10^3/ul (0-0.8); ABS Neutrophils 4.8 10^3/ul (1.5-7.7); ABS Nucleated RBC 0 10^3/ul; Eosinophil % 1.3 % (0-6); Hematocrit 40 % (42-52); Hemoglobin 13.4 g/dl (14.0-18.0); Mean Corpuscular HGB Conc 34 g/dl (31-36); Mean Corpuscular Hemoglobin 30 pg (27-31); Mean Corpuscular Volume 89 fL (80-94); Mean Platelet Volume 7.6 um3 (7.4-10.4); Nucleated Red Blood Cells % 0; Platelet Count 239 10^3/ul (150-450); Red Blood Count 4.46 10^6/ul (4.0-5.4); Red Cell Distribution Width 13 % (10.5-15); White Blood Count 7.7 10^3/ul (3.5-10.8)
[2018-03-04 11:03] LABS: EGFR Non-African American 65.3 (>60)
[2018-03-04 12:00] VITALS: BP 116/66
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
== END 2018-03-04 15:21 | disposition swing bed (61) | DRG 93 ==
LOC: ED 12:45 → MEDTELE 22:13 → OBSVTOIN 03-01 12:00 → MED 03-01 13:25
PROVIDERS: ADMIT Student in an Organized Health Care Education/Training Program; ATTEND Internal Medicine
DX: G89.29 Other chronic pain (principal); E03.9 Hypothyroidism, unspecified; I10 Essential (primary) hypertension; M21.372 Foot drop, left foot; R20.0 Anesthesia of skin; D55.0 Anemia due to glucose-6-phosphate dehydrogenase [G6PD] deficiency; E66.9 Obesity, unspecified; E11.9 Type 2 diabetes mellitus without complications; G47.33 Obstructive sleep apnea (adult) (pediatric); E78.5 Hyperlipidemia, unspecified; F32.9 Major depressive disorder, single episode, unspecified; M51.16 Intervertebral disc disorders with radiculopathy, lumbar region; M47.812 Spondylosis without myelopathy or radiculopathy, cervical region; R53.1 Weakness; M25.561 Pain in right knee; M25.512 Pain in left shoulder; Z23 Encounter for immunization; Z88.2 Allergy status to sulfonamides; Z82.49 Family history of ischemic heart disease and other diseases of the circulatory system; Z87.820 Personal history of traumatic brain injury; Z80.0 Family history of malignant neoplasm of digestive organs; Z83.3 Family history of diabetes mellitus; Z68.35 Body mass index [BMI] 35.0-35.9, adult; Z79.82 Long term (current) use of aspirin; Z79.84 Long term (current) use of oral hypoglycemic drugs; Z98.1 Arthrodesis status; Z91.81 History of falling; Z86.39 Personal history of other endocrine, nutritional and metabolic disease
CPT/HCPCS: 36415; 72125; 72128; 72131; 80048; 80053; 80061; 81003; 81015; 82306; 83036; 83721; 84443; 85025; 86140; 87086; 87476; 87798; 90732; 99284; A9270-GY; G8978-GP-CJ; G8979-GP-CI; G8987-GO-CK; G8988-GO-CI; G8989-GO-CI; J0696; J1100; J1170; J1650; J1885; J2270; J3360

== ENCOUNTER 2018-07-24 13:10 | Inpatient (IN) | payer MEDICARE, OTHER ==
[2018-07-24] MEDS ORDERED: NS 0.9% 1000 ML* 1,000 ML IV ONE (13:43)
[2018-07-24] MEDS ORDERED: Ondansetron INJ* 2 MG/ML VIAL IV ONE ×2 (13:43→15:35)
[2018-07-24] MEDS ORDERED: HYDROmorphone INJ* 1 MG/ML CARPUJECT SYRINGE IV ONE ×2 (13:43→15:46)
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
--- OUTSIDE RECORDS SUMMARY | 2018-07-24 14:14 | XMS REPORT ---
:1960 External Reference #:[id number] [facility] Address [address] [place] [address] [address] [place] [address] Phone [phone] Care Team Providers Name Role Phone Sebastian Baugh M.D. Primary Care Physician Unavailable Payers Type Date Identification Numbers Payment Provider Subscriber Medicare Primary Policy Number: [id number] Medicare Jesse Julien JR PayID: [id number] [address] [facility] [place] [address] Medigap Part B Expires: 2018 Policy Number: Medicare Jesse Julien JR [id number] PayID: [id number] [place] [address] Commercial Policy Number: [id number] [facility] Jesse Julien JR PayID: [id number] [address] [place] [address] Problems Date Description Provider Status Onset: 01/25/2015 Chronic headache disorder Radha Lim M.D. Active Onset: 01/25/2015 Dissociative convulsions Radha Lim M.D. Active Onset: 01/25/2015 Lyme disease Radha Lim M.D. Active Onset: 01/25/2015 Sleep apnea Radha Lim M.D. Active Onset: 02/15/2018 Migraine without aura, not refractory Delmer Camejo M.D. Active Onset: 02/15/2018 Amnesia Delmer Camejo M.D. Active Onset: 02/15/2018 Communicating hydrocephalus Delmer Camejo M.D. Active Onset: 02/15/2018 Transient altered mental status Delmer Camejo M.D. Active Onset: 02/15/2018 Chronic fatigue syndrome Delmer Camejo M.D. Active Onset: 04/15/2018 Backache Delmer Camejo M.D. Active Onset: 04/15/2018 Chronic pain Delmer Camejo M.D. 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 Active central nervous system Onset: 06/09/2018 Muscle weakness Delmer Camejo M.D. Active Onset: 06/30/2018 Normal pressure hydrocephalus Dk Uribe M.D. Active Onset: 06/25/2018 Nervous system symptoms Delmer Camejo M.D. Active Family History Date Family Member(s) Problem(s) Comments General Diabetes General Hypertension Social History Type Date Description Comments Marital Status Work Status Retired [employer] Left-Handed ETOH Use Rarely consumes alcohol Glass of wine, has not had since Sep 2017 Smoking Patient has never smoked Recreational Drug Use Denies Drug Use Daily Caffeine Consumes on average 1 cup of regular coffee per day Allergies, Adverse Reactions, Alerts Date Description Reaction Status Severity Comments 05/13/2013 Aspirin active 05/13/2013 Sulfa Antibiotics active 12/13/2013 Penicillins Increased bleeding active Medications Medication Date Status Form Strength Qnty SIG Indications Ordering Provider Ibuprofen 11/05/ Active Tablets 800mg 60tab 1 tab by G43.009 Radha Cowart s mouth for sita Lim M.D. Lyrica 12/13/ Active Capsules 100mg 120ca 2 by mouth Delmer 2013 ps twice a Cholo Camejo day Lisinopril / Active Tablets 40mg 1 po qd Unknown 0000 Hydralazine / Active Tablets 20mg 1 tab po Unknown HCL 0000 bid Atenolol / Active Tablets 50mg 1 po qd Unknown 0000 Synthroid / Active Tablets 175mcg 1 po qd Unknown 0000 Zocor / Active Tablets 40mg 1 po qday Unknown 0000 Aspirin / Active Tablets 81mg 1 po qd Unknown 0000 Trazodone HCL / Active Tablets 50mg 30tab 3 tablet Unknown 0000 s at bedtime as needed Glipizide 00/00/ Active Tablets 10mg 1 by mouth Unknown 0000 bid Metformin HCL 00/ Active Tablets 1000mg 1 by mouth Unknown 0000 twice a day Androgel 00/ Active Gel apply 5 Unknown 0000 pumps daily. Oxycodone HCL 0000/ Active Tablets 10mg as needed Unknown 0000 Oxycodone HCL / Active Tab ER 12H 20mg 1 tab Unknown ER 0000 Abuse-Det three times a day Lorazepam 04/05/ Hx Tablets 1mg 2tabs 1 tablet Charmaine 2017 - po 30 min Cowdery, 04/14/ prior to M.D. 2017 MRI may take 1 more tablet if still anxious Lyrica 07/29/ Hx Capsules 50mg 180ca 3 tabs by Radha Miller 2012 - ps mouth at [facility], 12/13/ bedtime as M.D. 2013 directed Cymbalta / Hx Caps DR 30mg 90cap 1 po qam Unknown 0000 - Part s 2013 Fentanyl / Hx Patches 50mcg/HR 10uni one every Unknown 0000 - 72HR ts 3rd day 2016 Buspirone HCL / Hx Tablets 7.5mg 60tab 1.5 by Unknown 0000 - s mouth po 03/28/ qd 2013 Testosterone / Hx Solution 200mg/ml 1 Unknown Cypionate 0000 - injection 10/29/ every week 2016 Hydrocodone-Ac / Hx Tablets 5-325mg 1-2 tabs Unknown etaminophen 0000 - twice a 06/09/ day as 2018 needed. Doxycycline / Hx Capsules 100mg 1 tablet Unknown Monohydrate 0000 - by mouth 06/24/ every 12 2018 hours Vital Signs Date Vital Result Comment 06/30/2018 Height 72 inches 6'0" Weight 250.00 lb BP Systolic Sitting 118 mmHg BP Diastolic Sitting 80 mmHg Pain Level 4 BMI (Body Mass Index) 33.9 kg/m2 06/25/2018 Height 72 inches 6'0" Weight 250.00 lb Heart Rate 64 /min BP Systolic 108 mmHg BP Diastolic 66 mmHg Respiratory Rate 20 /min BMI (Body Mass Index) 33.9 kg/m2 06/09/2018 Height 72 inches 6'0" Weight 250.00 lb Heart Rate 78 /min BP Systolic Sitting 123 mmHg BP Diastolic Sitting 80 mmHg BMI (Body Mass Index) 33.9 kg/m2 04/15/2018 Height 72 inches 6'0" Weight 253.38 lb BP Systolic 118 mmHg BP Diastolic 72 mmHg BMI (Body Mass Index) 34.4 kg/m2 02/15/2018 Height 72 inches 6'0" Weight 255.00 lb Heart Rate 68 /min BP Systolic Sitting 144 mmHg BP Diastolic Sitting 82 mmHg Respiratory Rate 16 /min BMI (Body Mass Index) 34.6 kg/m2 11/05/2017 Height 72 inches 6'0" Weight 255.00 lb Heart Rate 78 /min BP Systolic Sitting 138 mmHg BP Diastolic Sitting 88 mmHg Respiratory Rate 16 /min BMI (Body Mass Index) 34.6 kg/m2 10/30/2016 Height 72 inches 6'0" Weight 255.00 lb Heart Rate 74 /min BP Systolic Sitting 132 mmHg BP Diastolic Sitting 82 mmHg Respiratory Rate 16 /min BMI (Body Mass Index) 34.6 kg/m2 11/01/2015 Height 72 inches 6'0" Weight 250.00 lb Heart Rate 60 /min BP Systolic Sitting 118 mmHg BP Diastolic Sitting 62 mmHg Respiratory Rate 14 /min BMI (Body Mass Index) 33.9 kg/m2 01/25/2015 Height 72 inches 6'0" Weight 257.00 lb Heart Rate 72 /min BP Systolic Sitting 130 mmHg BP Diastolic Sitting 72 mmHg Respiratory Rate 16 /min BMI (Body Mass Index) 34.9 kg/m2 04/27/2014 Height 72 inches 6'0" Weight 238.00 lb Heart Rate 60 /min BP Systolic Sitting 122 mmHg BP Diastolic Sitting 76 mmHg Respiratory Rate 16 /min BMI (Body Mass Index) 32.3 kg/m2 12/13/2013 Heart Rate 70 /min BP Systolic Sitting 120 mmHg BP Diastolic Sitting 68 mmHg Respiratory Rate 16 /min 07/29/2013 Heart Rate 60 /min BP Systolic Sitting 124 mmHg BP Diastolic Sitting 82 mmHg Respiratory Rate 18 /min 05/13/2013 Height 72 inches 6'0" Weight 245.00 lb Heart Rate 76 /min BP Systolic Sitting 112 mmHg BP Diastolic Sitting 70 mmHg Respiratory Rate 16 /min BMI (Body Mass Index) 33.2 kg/m2 Results Test Date Test Result H/L Range Note Protein Electrophoresis 06/22/2018 Total Protein(Pep) 7.3 g/dL 6.3 - 7.9 Albumin 3.5 g/dL 3.4-4.7 Alpha-1 Globulin 0.3 g/dL 0.1-0.3 Alpha-2 Globulin 1.3 g/dL 0.6-1.0 Beta Globulin 1.2 g/dL 0.7-1.2 Gamma Globulin 1.1 g/dL 0.6-1.6 Albumin/Globulin Ratio 0.90 Impression See Comment 1 CSF Studies 06/22/2018 CSF Protein <pending> CSF Glucose <pending> Oligoclonal Bands <pending> CSF Immunoglobulin G (Igg) <pending> CSF Angiotension Conv Enz <pending> Viral Culture Non Respiratory <pending> Oligoclonal Bands 06/22/2018 CSF Oligoclonal Bands 4 bands Serum Oligoclonal Bands 2 bands Oligoclonal Proteins Interpret 2 bands <4 2 Laboratory test finding 06/22/2018 CSF Immunoglobulin G (Igg) <pending> Lyme Disease CSF <pending> Laboratory test finding 06/22/2018 RPR CSF <pending> CSF Angiotension Conv Enz <pending> Coccidiodes Antibody CSF <pending> Cryptococcal Antigen <pending> Basic Metabolic Panel 06/22/2018 Sodium 137 mmol/L 135-145 Chloride 103 mmol/L 101-111 Co2 Carbon Dioxide 27 mmol/L 22-32 Glucose 140 mg/dL High 70-100 Blood Urea Nitrogen 14 mg/dL 6-24 Creatinine 1.10 mg/dL 0.67-1.17 BUN/Creatinine Ratio 12.7 8-20 Calcium 9.2 mg/dL 8.6-10.3 Egfr Non- 68.8 >60 Egfr 83.2 >60 3 Potassium 5.3 mmol/L High 3.5-5.0 Anion Gap 7 mmol/L 2-11 Laboratory test finding 06/09/2018 Myoglobin 29.8 ng/mL 17.4-105.7 4, 5 Nuclear AB (Carolyn) By Ifa Igg <1:80 (Negative) 4, 6 Protein Electrophoresis 06/09/2018 Total Protein(Pep) 7.3 g/dL 6.3 - 7.9 4 Albumin 3.7 g/dL 3.4-4.7 4 Alpha-1 Globulin 0.3 g/dL 0.1-0.3 4 Alpha-2 Globulin 1.2 g/dL 0.6-1.0 4 Beta Globulin 1.2 g/dL 0.7-1.2 4 Gamma Globulin 0.9 g/dL 0.6-1.6 4 Albumin/Globulin Ratio 1.04 4 Impression See Comment 4, 7 Laboratory test finding 06/09/2018 Aldolase 3.6 U/L <7.7 4, 8 Creatine Kinase(CK) 127 U/L 10-223 4, 9 C Reactive Protein 3.89 mg/L <8.01 4, 10 Erythrocyte Sed Rate 29 mm/Hr High 0-20 4 Basic Metabolic Panel 02/15/2018 Sodium 138 mmol/L Low 139-145 Potassium 4.8 mmol/L 3.5-5.0 Chloride 104 mmol/L 101-111 Co2 Carbon Dioxide 26 mmol/L 22-32 Anion Gap 8 mmol/L 2-11 Glucose 130 mg/dL High 70-100 Blood Urea Nitrogen 18 mg/dL 6-24 Creatinine 1.10 mg/dL 0.67-1.17 BUN/Creatinine Ratio 16.4 8-20 Calcium 9.2 mg/dL 8.6-10.3 Egfr Non- 69.0 >60 Egfr 88.7 >60 11 Laboratory test finding 02/15/2018 Vitamin B12 259 pg/mL 180-914 12 Folic Acid (Folate) 14.01 ng/mL >3.99 TSH (Thyroid Stim Horm) 0.30 mcIU/mL Low 0.34-5.60 Free T4 (Free Thyroxine) 0.93 ng/dL 0.61-1.12 1 RESULT: No apparent monoclonal protein on serum electrophoresis. Test Performed by: [place] [id number] 2 The oligoclonal band assay detected 3 or fewer unique IgG bands in the CSF. This is a negative result. CSF is used in the diagnosis of MS by identifying increased intrathecal IgG synthesis qualitatively (Oligoclonal Bands) or quantitatively (IgG index or IgG synthesis rate, CSF). Oligoclonal bands (4 or more CSF-specific bands) and/or an elevated CSF IgG index are detected in up to 90% of patients with MS. These findings, however, are not specific for MS as CSF-specific IgG synthesis may also be found in patients with other neurologic diseases including infectious, inflammatory, cerebrovascular, and paraneoplastic disorders. Test Performed by: [address] [id number] 3 Because ethnic data is not always readily available, this report includes an eGFR for both -Americans and non- Americans. The National Kidney Disease Education Program (NKDEP) does not endorse the use of the MDRD equation for patients that are not between the ages of 18 and 70, are , have extremes of body size, muscle mass, or nutritional status, or are non- or non-. According to the National Kidney Foundation, irrespective of diagnosis, the stage of the disease is based on the level of kidney function: Stage Description GFR(mL/min/1.73 m(2)) 1 Kidney damage with normal or decreased GFR 90 2 Kidney damage with mild decrease in GFR 60-89 3 Moderate decrease in GFR 30-59 4 Severe decrease in GFR 15-29 5 Kidney failure <15 (or dialysis) 4 FASTING 5 FASTING 6 <1:80 (Negative) REFERENCE VALUE <1:80 (Negative) Test Performed by: [place] [address] 7 RESULT: No apparent monoclonal protein on serum electrophoresis. Test Performed by: [place] [address] 8 Test Performed by: [place] [address] 9 FASTING 10 FASTING 11 Because ethnic data is not always readily available, this report includes an eGFR for both -Americans and non- Americans. The National Kidney Disease Education Program (NKDEP) does not endorse the use of the MDRD equation for patients that are not between the ages of 18 and 70, are , have extremes of body size, muscle mass, or nutritional status, or are non- or non-. According to the National Kidney Foundation, irrespective of diagnosis, the stage of the disease is based on the level of kidney function: Stage Description GFR(mL/min/1.73 m(2)) 1 Kidney damage with normal or decreased GFR 90 2 Kidney damage with mild decrease in GFR 60-89 3 Moderate decrease in GFR 30-59 4 Severe decrease in GFR 15-29 5 Kidney failure <15 (or dialysis) 12 Normal Range 180 to 914 Indeterminate Range 145 to 180 Deficient Range <145 Procedures Date CPT Code Description Status 06/14/2018 52440 EEG Recording Awake & Drowsy Completed 05/17/2013 75551 EEG Recording Awake & Drowsy Completed Encounters Type Date Location Provider CPT E/M Dx Office Visit 06/25/2018 [facility] Delmer Camejo M.D. 53459 R41.3 12:00p Services Of Charge Entry Clerk R40.4 R53.82 R29.6 G91.0 Office Visit 06/09/2018 9:45a [facility] Delmer Camejo 59471 R41.3 Cholo R53.82 M62.81 R40.4 R51 R29.6 Office Visit 04/15/2018 3:15p [facility] Delmer Camejo, 43148 M54.9 Services Of Dread Emmanuel G89.29 G43.009 R41.3 R94.02 Office Visit 03/04/2018 8:13a [facility],pc Anali Rich 20222 M54.9 Hospitalists SEDRICK Espinal G89.29 M25.512 M25.561 Office Visit 02/28/2018 8:08a [facility],mireya Goldman 32434 M54.9 Hospitalists MD Marilu G89.29 M25.512 M25.561 Office Visit 02/15/2018 2:15p [facility] Irina Camejo 59773 G43.009 Services Of Dread Emmanuel R41.3 G91.0 R40.4 R53.82 Office Visit 11/05/2017 2:00p [facility] Radha Lim, 88640 G43.009 Services Of Dread Emmanuel R40.4 Office Visit 10/30/2016 10:00a [facility] Radha Lim 24056 R51 Services Of Dread Emmanuel R40.4 Office Visit 11/01/2015 3:15p [facility] Radha Lim 02752 R51 Services Of Dread Emmanuel R40.4 G89.4 Office Visit 01/25/2015 3:00p [facility] Radha Lim, 29384 784.0 Services Of Charge Entry Clerk M.D. 780.02 088.81 780.93 Office Visit 04/27/2014 3:00p [facility] Radha Lim, 45426 346.10 Services Of Charge Entry Clerk M.D. 780.02 088.81 Office Visit 12/13/2013 11:45a [facility] Radha Lim, 64349 784.0 Services Of Charge Entry Clerk M.D. 780.02 Office Visit 07/29/2013 1:00p [facility] Radha Lim, 25784 338.4 Services Of Charge Entry Clerk M.D. 784.0 Office Visit 05/13/2013 1:00p [facility] Radha Lim, 34560 784.0 Services Of Charge Entry Clerk M.D. 780.02 Office Visit 03/28/2013 11:04a [facility], Peri Avendaño, [address]78 784.0 Hospitalists Campbell 088.81 274.00 Office Visit 03/28/2013 1:55p [facility] Hai Klein [address]14 088.81 Infectious Diseases Cholo Tsang Office Visit 03/26/2013 11:03a [facility] Oscar Nolasco, 16556 784.0 Assoc, Hospitaltori Emmanuel 331.3 681.11 079.99 Plan of Care Future Appointment(s):07/23/2018 2:15 pm - Delmer Camejo M.D. at [facility]06/30/2018 - Dk Uribe M.D.G91.2 (Idiopathic) normal pressure hydrocephalusFollow up:Schedule JUSTICE PROFESSOR Shunt for 07/13
[2018-07-24 14:15] LABS: ABS Basophils 0 10^3/ul (0-0.2); ABS Eosinophils 0 10^3/ul (0-0.6); ABS Lymphocytes 0.6 10^3/ul (1.0-4.8); ABS Monocytes 0.5 10^3/ul (0-0.8); ABS Nucleated RBC 0 10^3/ul; Eosinophil % 0 % (0-6); Hematocrit 35 % (42-52); Hemoglobin 11.7 g/dl (14.0-18.0); Lymphocyte % 4.4 % (25-47); Mean Corpuscular HGB Conc 33 g/dl (31-36); Mean Corpuscular Hemoglobin 29 pg (27-31); Mean Corpuscular Volume 86 fL (80-94); Mean Platelet Volume 7.3 um3 (7.4-10.4); Nucleated Red Blood Cells % 0; Platelet Count 318 10^3/ul (150-450); Red Blood Count 4.04 10^6/ul (4.00-5.40); Red Cell Distribution Width 14 % (10.5-15); White Blood Count 13.1 10^3/ul (3.5-10.8)
[2018-07-24] MEDS ORDERED: HYDROmorphone INJ1* 1 MG/ML SYRINGE ONE (14:18)
[2018-07-24 14:24] LABS: INR 1.05 (0.77-1.02)
[2018-07-24 14:26] LABS: EGFR Non-African American 90.1 (>60)
--- NOTE | 2018-07-24 14:48 | RAD ---
INDICATION: Headache status post ventricular shunt placement. COMPARISON: Correlation is made with prior CTs of the brain from March 25, 2013 and July 14, 2018. Correlation is also made with a prior MRI of the brain from April 08, 2018. TECHNIQUE: Contiguous axial sections of the brain were obtained from the skull base to the vertex without contrast. FINDINGS: The lateral and third ventricles appear prominent and unchanged from the prior exam. There is a ventricular shunt catheter entering from the right frontal approach. The catheter appears to be slightly more anterior than on the prior exam and appears to be in the anterior aspect of the frontal horn of the right lateral ventricle. There is a small a moderate size area of decreased attenuation along the track of the catheter which has increased in size from the prior exam. There is a small amount of pneumocephalus which is slightly decreased. There is no evidence for hemorrhage. No significant focal osseous abnormality is seen. The visualized portion of the paranasal sinuses and mastoid air cells appear clear. The results of this exam were discussed with the patient's neurosurgeon. IMPRESSION: 1. THE VENTRICULAR SHUNT CATHETER IS LOCATED ALONG THE ANTERIOR EDGE OF THE FRONTAL HORN OF THE RIGHT LATERAL VENTRICLE. 2. THERE IS AN AREA OF DECREASED ATTENUATION IN THE RIGHT FRONTAL LOBE WHICH HAS INCREASED SLIGHTLY IN SIZE FROM THE PRIOR STUDY. THIS IS A NONSPECIFIC FINDING MAY REPRESENT LOCALIZED EDEMA, CEREBRITIS OR INFARCTION.
[2018-07-24] MEDS ORDERED: HYDROmorphone INJ* 0.5 MG/0.5 ML SYRINGE IV SLOW PU PRN (15:04)
[2018-07-24] MEDS ORDERED: Dextrose 50% Syringe 50 ML* 25 GM/50 ML SYRINGE IV PUSH PRN (15:08)
[2018-07-24] MEDS ORDERED: hydrALAZINE IV* 20 MG/ML VIAL IV SLOW PU SCH (16:00)
[2018-07-24] MEDS ORDERED: HYDROmorphone INJ1* 1 MG/ML SYRINGE IV SLOW PU PRN (16:43)
[2018-07-24] MEDS: Ondansetron INJ* 2 MG/ML VIAL IV PRN ×2 (16:56→23:11)
[2018-07-24] MEDS: hydrALAZINE IV* 20 MG/ML VIAL IV SLOW PU SCH (17:04)
[2018-07-24] MEDS: Metoprolol Tartrate IV* 1 MG/ML 5 ML VIAL IV SCH ×2 (17:04→22:06)
[2018-07-24] MEDS: NS 0.9% 1000 ML* 1,000 ML IV SCH (17:10)
[2018-07-24] MEDS: Insulin LISPRO* 1 UNITS UNIT SUBCUT SCH (17:18)
[2018-07-24] MEDS: Ketorolac INJ* 30 MG/ML 1 ML VIAL IV PUSH PRN ×2 (17:18→23:08)
[2018-07-24] MEDS: HYDROmorphone INJ1* 1 MG/ML SYRINGE ONE (17:50)
[2018-07-24] MEDS: PROCHLORPERAZINE INJ 5 MG/ML 2 ML VIAL IV PRN (17:50)
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
[2018-07-24] MEDS: HYDROmorphone INJ1* 1 MG/ML SYRINGE IV SLOW PU PRN (22:06)
[2018-07-24] MEDS ORDERED: traZODone TAB* 100 MG PO PRN (22:18)
[2018-07-25] MEDS: hydrALAZINE IV* 20 MG/ML VIAL IV SLOW PU SCH ×3 (01:10→16:40)
[2018-07-25] MEDS: Acetaminophen TAB* 325 MG PO PRN ×3 (01:18→16:29)
[2018-07-25] MEDS: PROCHLORPERAZINE INJ 5 MG/ML 2 ML VIAL IV PRN ×3 (01:19→16:40)
[2018-07-25] MEDS: HYDROmorphone INJ1* 1 MG/ML SYRINGE IV SLOW PU PRN ×7 (02:05→22:51)
[2018-07-25] MEDS: NS 0.9% 1000 ML* 1,000 ML IV SCH ×3 (02:28→22:22)
[2018-07-25] MEDS: Metoprolol Tartrate IV* 1 MG/ML 5 ML VIAL IV SCH ×4 (04:29→22:57)
[2018-07-25] MEDS: Ondansetron INJ* 2 MG/ML VIAL IV PRN ×3 (05:17→20:16)
[2018-07-25] MEDS: Ketorolac INJ* 30 MG/ML 1 ML VIAL IV PUSH PRN ×2 (05:17→20:05)
[2018-07-25] MEDS: Insulin LISPRO* 1 UNITS UNIT SUBCUT SCH ×3 (07:29→16:29)
[2018-07-25] MEDS: Acetaminophen TAB* 325 MG PO SCH ×2 (09:58→23:01)
[2018-07-25] MEDS: oxyCODONE SR TAB(*) 10 MG TAB.SR PO SCH ×2 (09:59→22:15)
[2018-07-25] MEDS: Gabapentin CAP(*) 100 MG PO SCH ×3 (10:00→23:00)
--- NOTE | 2018-07-25 14:33 | PN ---
Progress Note - Progress Note Date of Service: 07/25/18 SOAP: Subjective: []Patient better but requiring large narcotic dosage Still c/o nausea,vomiting when getting up C/O neck pain Objective: []Shunt depresses but refills poorly Periorbital swelling noted Neuro intact Assessment: [] Suspect proximal shunt catheter not draining Plan: [] Will revise proximal shunt catheter in OR Thursday
--- NOTE | 2018-07-25 14:43 | PN ---
Subjective Date of Service: 07/25/18 Interval History: Pt seen and examined. Meds and labs reviewed. CC: LERMA ROS: Denied dizziness, F/C, N/V, CP, SOB, increased cough, sputum production, abd pain, diarrhea, constipation, dysuria, myalgias, arthralgias, throat pain, and new skin lesions. The rest of the 14 point ROS are unremarkable. PHYSICAL EXAM: GEN APPEARANCE: Awake, not in acute distress, HEENT: NC/AT, PERRLA, moist oral mucosa, (-) throat erythema NECK: Soft, supple, (-) cervical LAD, (-)JVD HEART: S1S2 WNL, RRR, No MRG CHEST: CTA, BL, GAE, No W/R/R ABD: Soft, ND/NT, NABS 4x Q EXT: No C/C/E SKIN: Warm to touch PSYCH: No active psychosis, hallucinations, depression, SI/HI Objective Active Medications: Acetaminophen (Tylenol Tab*) 650 mg PO Q6H PRN PRN Reason: PAIN Last Admin: 07/25/18 07:45 Dose: 650 mg Acetaminophen (Tylenol Tab*) 975 mg PO BID [facility] Last Admin: 07/25/18 09:58 Dose: 975 mg Dextrose (D50w Syringe 50 Ml*) 12.5 gm IV PUSH .FOR FS < 60 - SS PRN PRN Reason: FS < 60 Gabapentin (Neurontin Cap(*)) 200 mg PO TID [facility] Last Admin: 07/25/18 13:44 Dose: 200 mg Hydralazine HCl (Apresoline Iv*) 10 mg IV SLOW PU Q8H [facility] Last Admin: 07/25/18 08:24 Dose: 10 mg Hydromorphone HCl (Dilaudid Inj1s*) 3 mg IV SLOW PU Q3H PRN PRN Reason: PAIN Last Admin: 07/25/18 13:45 Dose: 3 mg Sodium Chloride (Ns 0.9% 1000 Ml*) 1,000 mls @ 100 mls/hr IV PER RATE [facility] Last Admin: 07/25/18 12:17 Dose: 100 mls/hr Insulin Human Lispro (Humalog*) 0 units SUBCUT AC [facility]; Protocol Last Admin: 07/25/18 12:16 Dose: 3 units Ketorolac Tromethamine (Toradol Inj*) 30 mg IV PUSH Q6H PRN PRN Reason: PAIN Last Admin: 07/25/18 05:17 Dose: 30 mg Lisinopril (Prinivil Tab*) 40 mg PO DAILY [facility] Metoprolol Tartrate (Lopressor Iv*) 5 mg IV Q6H [facility] Last Admin: 07/25/18 08:24 Dose: 5 mg Ondansetron HCl (Zofran Inj*) 4 mg IV Q6H PRN PRN Reason: NAUSEA Last Admin: 07/25/18 13:45 Dose: 4 mg Oxycodone HCl (Oxycontin(*)) 10 mg PO Q12HR [facility] Last Admin: 07/25/18 09:59 Dose: 10 mg Prochlorperazine Edisylate (Compazine Inj*) 5 mg IV Q6H PRN PRN Reason: NAUSEA/VOMITING Last Admin: 07/25/18 07:30 Dose: 5 mg Trazodone HCl (Desyrel Tab*) 200 mg PO BEDTIME PRN PRN Reason: INSOMNIA Last Admin: 07/24/18 23:13 Dose: 200 mg Vital Signs - 8 hr 07/25/18 07/25/18 07/25/18 07:20 08:00 08:24 Temperature 98.6 F Pulse Rate 69 Respiratory 14 18 22 Rate Blood Pressure 189/98 (mmHg) O2 Sat by Pulse 96 Oximetry 07/25/18 07/25/18 07/25/18 09:59 10:00 11:23 Temperature Pulse Rate Respiratory 14 14 16 Rate Blood Pressure (mmHg) O2 Sat by Pulse Oximetry 07/25/18 07/25/18 07/25/18 12:19 12:34 13:43 Temperature 98.3 F Pulse Rate 69 Respiratory 14 14 16 Rate Blood Pressure 171/69 (mmHg) O2 Sat by Pulse 99 Oximetry 07/25/18 07/25/18 13:44 13:45 Temperature Pulse Rate Respiratory 16 16 Rate Blood Pressure (mmHg) O2 Sat by Pulse Oximetry Oxygen Devices in Use Now: None Result Diagrams: 07/24/18 13:57 07/24/18 13:57 Microbiology and Other Data: Microbiology 07/24/18 14:33 Aerobic Blood Culture - Preliminary Blood Venous No Growth Day 1 Anaerobic Blood Culture - Preliminary No Growth Day 1 07/24/18 13:56 Aerobic Blood Culture - Preliminary Blood Venous No Growth Day 1 Anaerobic Blood Culture - Preliminary No Growth Day 1 Assess/Plan/Problems-Billing Assessment: - Patient Problems (1) Headache Current Visit: Yes Status: Acute Code(s): R51 - HEADACHE SNOMED Code(s): 85680510 Comment: -Added Gabapentin, Scheduled Tylenol on top of PRN regimen, placed on low dose Oxycontin, as well as adjusted PRN Dilaudid -Per conversation with Dr. Uribe with admitting team, he feels that the CMA shunt revision recently done 11 days ago was appropriate and better control of BP can further mitigate it due to possible hypertensive urgency -Will restart his home Lisinopril dose given his BP is still uncotrolled; Continue PRN IV anti-hypertensives -CT brain: area of decreased attenuation in right fontal lobe, w/c has increased slightly in size from the prior study. This is a nonspecific finding ; may represent localized edema, cerebritis, or infarction. -Will await formal evaluation from [facility] and will re-discuss case and other subsequent imaging if needed (2) DM type 2 (diabetes mellitus, type 2) Current Visit: No Status: Acute Comment: -Relatively close to goal -Continue heart healthy diet -Will place in Consistent Carb diet -Continue to monitor FS (3) HTN (hypertension) Current Visit: No Status: Acute Code(s): I10 - ESSENTIAL (PRIMARY) HYPERTENSION SNOMED Code(s): 91868485 Comment: -Uncontrolled -Please see above discussion (4) MOLLY on CPAP Current Visit: No Status: Acute Code(s): G47.33 - OBSTRUCTIVE SLEEP APNEA ( ADULT) (PEDIATRIC); Z99.89 - DEPENDENCE ON OTHER ENABLING MACHINES AND DEVICES SNOMED Code(s): 13360539 Comment: -Continue CPAP qHS (5) DVT prophylaxis Current Visit: No Status: Acute Code(s): UNE8843 - SNOMED Code(s): 137834575 Comment: -Continue SCDs Status and Disposition: -For PT eval
[2018-07-25] MEDS: Lisinopril TAB* 10 MG PO SCH (15:41)
[2018-07-26] MEDS: HYDROmorphone INJ1* 1 MG/ML SYRINGE IV SLOW PU PRN ×8 (01:15→23:58)
[2018-07-26] MEDS: hydrALAZINE IV* 20 MG/ML VIAL IV SLOW PU SCH ×2 (01:16→08:00)
[2018-07-26] MEDS: Ondansetron INJ* 2 MG/ML VIAL IV PRN ×2 (03:07→09:07)
[2018-07-26] MEDS: Ketorolac INJ* 30 MG/ML 1 ML VIAL IV PUSH PRN (04:11)
[2018-07-26] MEDS: Metoprolol Tartrate IV* 1 MG/ML 5 ML VIAL IV SCH (04:12)
[2018-07-26] MEDS ORDERED: HYDROmorphone INJ1* 1 MG/ML SYRINGE IV PRN ×2 (04:25→12:30)
[2018-07-26] MEDS: PROCHLORPERAZINE INJ 5 MG/ML 2 ML VIAL IV PRN (06:04)
[2018-07-26] MEDS: Acetaminophen TAB* 325 MG PO PRN (06:11)
[2018-07-26 07:26] LABS: Hematocrit 32 % (42-52); Hemoglobin 10.5 g/dl (14.0-18.0); Mean Corpuscular HGB Conc 33 g/dl (31-36); Mean Corpuscular Hemoglobin 29 pg (27-31); Mean Corpuscular Volume 87 fL (80-94); Mean Platelet Volume 7.1 um3 (7.4-10.4); Platelet Count 245 10^3/ul (150-450); Red Blood Count 3.63 10^6/ul (4.00-5.40); Red Cell Distribution Width 14 % (10.5-15)
[2018-07-26 07:48] LABS: EGFR Non-African American 92.6 (>60)
[2018-07-26] MEDS ORDERED: Magnesium Sulfate 2 GM IV* 2 GM/50 ML BAG IVPB ONE (07:49)
[2018-07-26] MEDS: Lisinopril TAB* 10 MG PO SCH ×2 (07:58→15:39)
[2018-07-26] MEDS: Acetaminophen TAB* 325 MG PO SCH ×3 (08:25→20:39)
[2018-07-26] MEDS: oxyCODONE SR TAB(*) 10 MG TAB.SR PO SCH ×3 (08:26→20:38)
[2018-07-26] MEDS: Gabapentin CAP(*) 100 MG PO SCH ×2 (08:27→14:19)
[2018-07-26] MEDS: Insulin LISPRO* 1 UNITS UNIT SUBCUT SCH ×3 (08:38→18:49)
[2018-07-26] MEDS: Atenolol TAB* 50 MG PO SCH ×2 (08:41→09:57)
[2018-07-26] MEDS: NS 0.9% 1000 ML* 1,000 ML IV SCH (08:52)
[2018-07-26] MEDS ORDERED: Metoprolol Tartrate IV* 1 MG/ML 5 ML VIAL IV PRN ×2 (09:00→16:26)
[2018-07-26] MEDS ORDERED: Thrombin 5,000 UNITS* 1 APPLIC KIT - topical use - TOPICAL ONE (10:25)
[2018-07-26] MEDS ORDERED: Lidocain 1% EPI 1:100,000 * 30 ML MDV ONE (10:25)
[2018-07-26] MEDS ORDERED: Bacitracin IV* 50,000 UNITS INJ ONE (10:26)
[2018-07-26] MEDS ORDERED: HYDROmorphone INJ1* 1 MG/ML SYRINGE ONE ×4 (10:46→17:39)
[2018-07-26] MEDS ORDERED: Morphine VIAL* 10 MG/ML 1 ML VIAL ONE (11:01)
[2018-07-26] MEDS ORDERED: Clindamycin 900 MG/D5W BAG(*) 900 MG/50 ML BAG IVPB ONE (11:05)
[2018-07-26] MEDS ORDERED: fentaNYL* 50 MCG/ML 2 ML VIAL (100 MCG VIAL) ONE (11:23)
[2018-07-26] MEDS ORDERED: Midazolam* 1 MG/ML 2 ML VIAL (2 MG) ONE (11:24)
[2018-07-26] MEDS ORDERED: Naloxone* 0.4 MG/ML 1 ML VIAL IV PRN (11:58)
[2018-07-26] MEDS ORDERED: hydrALAZINE IV* 20 MG/ML VIAL IV SLOW PU PRN (12:33)
[2018-07-26] MEDS ORDERED: hydrALAZINE IV* 20 MG/ML VIAL ONE (14:22)
[2018-07-26] MEDS ORDERED: Gabapentin CAP(*) 100 MG PO SCH (14:22)
[2018-07-26] MEDS: HYDROmorphone INJ1* 1 MG/ML SYRINGE ONE (14:46)
[2018-07-26] MEDS ORDERED: hydrALAZINE IV* 20 MG/ML VIAL IV SLOW PU STA ×2 (15:06→16:27)
[2018-07-26] MEDS ORDERED: PROCHLORPERAZINE INJ 5 MG/ML 2 ML VIAL IV PRN (15:07)
[2018-07-26] MEDS ORDERED: Dextrose 50% Syringe 50 ML* 25 GM/50 ML SYRINGE IV PUSH PRN (15:08)
[2018-07-26] MEDS ORDERED: NS 0.9% 1000 ML* 1,000 ML IV SCH (15:15)
[2018-07-26] MEDS ORDERED: hydrALAZINE IV* 20 MG/ML VIAL IV SLOW PU SCH ×2 (15:30→17:00)
--- NOTE | 2018-07-26 16:24 | PN ---
Subjective Date of Service: 07/26/18 Interval History: Pt seen and examined. Meds and labs reviewed. S/P CARD CLEANER shunt revision due to suspected inadequate drainage of proximal shunt CC: LERMA ROS: Denied LERMA/dizziness, F/C, N/V, CP, SOB, increased cough, sputum production , abd pain, diarrhea, constipation, dysuria, myalgias, arthralgias, throat pain , and new skin lesions. The rest of the 14 point ROS are unremarkable. PHYSICAL EXAM: GEN APPEARANCE: Awake, not in acute distress HEENT: NC/AT, PERRLA, moist oral mucosa, (-) throat erythema, head dressing post -op cdi NECK: Soft, supple, (-) cervical LAD, (-)JVD HEART: S1S2 WNL, RRR, No MRG CHEST: CTA, BL, GAE, No W/R/R ABD: Soft, ND/NT, NABS 4x Q EXT: No C/C/E SKIN: Warm to touch PSYCH: No active psychosis, hallucinations, depression, SI/HI Objective Active Medications: Acetaminophen (Tylenol Tab*) 650 mg PO Q6H PRN PRN Reason: PAIN Acetaminophen (Tylenol Tab*) 975 mg PO BID [facility] Last Admin: 07/26/18 15:39 Dose: 975 mg Atenolol (Tenormin Tab*) 50 mg PO DAILY [facility] Last Admin: 07/26/18 09:57 Dose: Not Given Dextrose (D50w Syringe 50 Ml*) 12.5 gm IV PUSH .FOR FS < 60 - SS PRN PRN Reason: FS < 60 Gabapentin (Neurontin Cap(*)) 300 mg PO TID [facility] Hydralazine HCl (Apresoline Iv*) 10 mg IV SLOW PU Q8H [facility] Last Admin: 07/26/18 15:41 Dose: 10 mg Hydromorphone HCl (Dilaudid Inj1s*) 3 mg IV SLOW PU Q2H PRN PRN Reason: PAIN Last Admin: 07/26/18 15:19 Dose: 1 mg Insulin Human Lispro (Humalog*) 0 units SUBCUT AC [facility]; Protocol Lisinopril (Prinivil Tab*) 40 mg PO DAILY [facility] Last Admin: 07/26/18 15:39 Dose: 40 mg Metoprolol Tartrate (Lopressor Iv*) 5 mg IV Q6H PRN PRN Reason: PP>160/90, HOLD FOR HR<OR=55 Ondansetron HCl (Zofran Inj*) 4 mg IV Q6H PRN PRN Reason: NAUSEA Oxycodone HCl (Oxycontin(*)) 10 mg PO Q12HR [facility] Last Admin: 07/26/18 15:40 Dose: 10 mg Prochlorperazine Edisylate (Compazine Inj*) 5 mg IV Q6H PRN PRN Reason: NAUSEA/VOMITING Trazodone HCl (Desyrel Tab*) 200 mg PO BEDTIME PRN PRN Reason: INSOMNIA Vital Signs - 8 hr 07/26/18 07/26/18 07/26/18 08:26 08:27 09:55 Temperature 96.8 F Pulse Rate 76 Respiratory 18 18 18 Rate Blood Pressure 188/101 (mmHg) O2 Sat by Pulse 96 Oximetry 07/26/18 07/26/18 07/26/18 10:50 11:56 12:00 Temperature 97.7 F Pulse Rate 70 71 Respiratory 16 16 Rate Blood Pressure 221/113 193/113 (mmHg) O2 Sat by Pulse 92 88 Oximetry 07/26/18 07/26/18 07/26/18 12:05 12:10 12:20 Temperature Pulse Rate 80 81 75 Respiratory 20 13 12 Rate Blood Pressure 207/123 200/115 195/115 (mmHg) O2 Sat by Pulse 98 95 97 Oximetry 07/26/18 07/26/18 07/26/18 12:24 12:25 12:30 Temperature Pulse Rate 68 71 72 Respiratory 11 12 10 Rate Blood Pressure 194/109 178/106 (mmHg) O2 Sat by Pulse 97 96 96 Oximetry 07/26/18 07/26/18 07/26/18 12:45 12:47 12:49 Temperature Pulse Rate 76 77 Respiratory Rate Blood Pressure 206/118 218/113 188/118 (mmHg) O2 Sat by Pulse 95 96 Oximetry 07/26/18 07/26/18 07/26/18 13:00 13:01 13:05 Temperature Pulse Rate 66 70 Respiratory 18 Rate Blood Pressure 199/106 194/106 (mmHg) O2 Sat by Pulse 97 96 Oximetry 07/26/18 07/26/18 07/26/18 13:15 13:35 13:46 Temperature 96.9 F Pulse Rate 69 68 61 Respiratory 18 Rate Blood Pressure 199/110 184/108 197/107 (mmHg) O2 Sat by Pulse 97 97 98 Oximetry 07/26/18 07/26/18 07/26/18 14:13 14:51 15:19 Temperature 96.9 F 97.0 F Pulse Rate 61 65 Respiratory 18 16 18 Rate Blood Pressure 197/107 203/94 (mmHg) O2 Sat by Pulse 98 96 Oximetry 07/26/18 07/26/18 07/26/18 15:29 15:39 15:40 Temperature Pulse Rate Respiratory 18 18 189 Rate Blood Pressure (mmHg) O2 Sat by Pulse Oximetry 07/26/18 16:00 Temperature 97.7 F Pulse Rate 75 Respiratory 16 Rate Blood Pressure 226/91 (mmHg) O2 Sat by Pulse Oximetry Oxygen Devices in Use Now: None Result Diagrams: 07/26/18 07:05 07/26/18 07:05 Microbiology and Other Data: Microbiology 07/24/18 14:33 Aerobic Blood Culture - Preliminary Blood Venous No Growth Day 1 Anaerobic Blood Culture - Preliminary No Growth Day 1 07/24/18 13:56 Aerobic Blood Culture - Preliminary Blood Venous No Growth Day 1 Anaerobic Blood Culture - Preliminary No Growth Day 1 Assess/Plan/Problems-Billing Assessment: - Patient Problems (1) Headache Current Visit: Yes Status: Acute Code(s): R51 - HEADACHE SNOMED Code(s): 90903213 Comment: -S/P CARD CLEANER shunt revision (07/26/18) by Dr. Uribe -Likely due to suspected inadequate drainage of proximal shunt catheter -Will increase Gabapentin for synergy -Continue Scheduled Tylenol on top of PRN regimen, placed on low dose Oxycontin , as well as adjusted PRN Dilaudid -Per conversation with Dr. Uribe with admitting team, he feels that the CARD CLEANER shunt revision recently done 11 days ago was appropriate and better control of BP can further mitigate it due to possible hypertensive urgency -Continue Lisinopril dose; Continue PRN IV anti-hypertensives -Added Atenolol home med earlier in AM -CT brain: area of decreased attenuation in right fontal lobe, w/c has increased slightly in size from the prior study. This is a nonspecific finding ; may represent localized edema, cerebritis, or infarction. -Appreciate re-eval by Dr. Uribe (2) DM type 2 (diabetes mellitus, type 2) Current Visit: No Status: Acute Comment: -Relatively close to goal -Continue heart healthy diet -Will place in Consistent Carb diet -Continue to monitor FS (3) HTN (hypertension) Current Visit: No Status: Acute Code(s): I10 - ESSENTIAL (PRIMARY) HYPERTENSION SNOMED Code(s): 62874910 Comment: -Uncontrolled -Please see above discussion (4) MOLLY on CPAP Current Visit: No Status: Acute Code(s): G47.33 - OBSTRUCTIVE SLEEP APNEA ( ADULT) (PEDIATRIC); Z99.89 - DEPENDENCE ON OTHER ENABLING MACHINES AND DEVICES SNOMED Code(s): 72247463 Comment: -Continue CPAP qHS (5) DVT prophylaxis Current Visit: No Status: Acute Code(s): HSK1621 - SNOMED Code(s): 815114861 Comment: -Continue SCDs Status and Disposition: -For PT eval
[2018-07-26] MEDS ORDERED: HYDROmorphone INJ* 2 MG/ML CARPUJECT SYRINGE IV SLOW PU ONE (17:20)
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
[2018-07-26] MEDS: amLODIPine TAB* 5 MG PO SCH (17:40)
[2018-07-26] MEDS: niCARdipine 0.1MG/ML IVPREMIX* 20 MG/200 ML BAG IV SCH ×3 (17:41→23:59)
[2018-07-26] MEDS ORDERED: HYDROmorphone INJ1* 1 MG/ML SYRINGE IV SLOW PU PRN (20:20)
[2018-07-26] MEDS: Gabapentin CAP(*) 300 MG PO SCH (20:39)
[2018-07-26] MEDS ORDERED: traZODone TAB* 100 MG PO PRN (22:18)
[2018-07-26] MEDS: hydrALAZINE TAB* 25 MG PO SCH (23:58)
[2018-07-27] MEDS ORDERED: hydrALAZINE TAB* 25 MG PO SCH
[2018-07-27] MEDS: Ondansetron INJ* 2 MG/ML VIAL IV PRN ×3 (00:05→18:04)
[2018-07-27] MEDS: HYDROmorphone INJ1* 1 MG/ML SYRINGE IV SLOW PU PRN ×11 (02:04→22:05)
[2018-07-27] MEDS: niCARdipine 0.1MG/ML IVPREMIX* 20 MG/200 ML BAG IV SCH ×5 (02:57→17:58)
[2018-07-27] MEDS: Acetaminophen TAB* 325 MG PO PRN ×2 (04:04→18:29)
[2018-07-27 06:36] LABS: Hematocrit 33 % (42-52); Mean Corpuscular HGB Conc 34 g/dl (31-36); Mean Corpuscular Hemoglobin 29 pg (27-31); Mean Corpuscular Volume 86 fL (80-94); Mean Platelet Volume 6.9 um3 (7.4-10.4); Platelet Count 252 10^3/ul (150-450); Red Blood Count 3.81 10^6/ul (4.00-5.40); Red Cell Distribution Width 15 % (10.5-15); White Blood Count 14.1 10^3/ul (3.5-10.8)
[2018-07-27 06:50] LABS: EGFR Non-African American 119.8 (>60)
[2018-07-27] MEDS: Lisinopril TAB* 10 MG PO SCH (08:14)
[2018-07-27] MEDS: hydrALAZINE TAB* 25 MG PO SCH (08:14)
[2018-07-27] MEDS: Gabapentin CAP(*) 300 MG PO SCH ×3 (08:14→19:59)
[2018-07-27] MEDS: amLODIPine TAB* 5 MG PO SCH (08:14)
[2018-07-27] MEDS: Atenolol TAB* 50 MG PO SCH (08:15)
[2018-07-27] MEDS ORDERED: Magnesium Sulfate 2 GM IV* 2 GM/50 ML BAG IVPB ONE ×2 (08:15→11:00)
[2018-07-27] MEDS: Acetaminophen TAB* 325 MG PO SCH ×2 (08:15→22:05)
[2018-07-27] MEDS ORDERED: Potassium Chlor TAB* 20 MEQ TAB.ER PO ONE ×2 (08:16→11:23)
[2018-07-27] MEDS: oxyCODONE SR TAB(*) 10 MG TAB.SR PO SCH ×2 (08:16→19:59)
[2018-07-27] MEDS: Insulin LISPRO* 1 UNITS UNIT SUBCUT SCH ×3 (08:40→17:04)
[2018-07-27] MEDS ORDERED: hydrALAZINE TAB* 25 MG PO ONE (11:26)
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
[2018-07-27] MEDS: Carvedilol TAB* 6.25 MG PO SCH ×2 (11:54→19:59)
[2018-07-27] MEDS: hydrALAZINE TAB* 100 MG ** ONE HUNDRED PO SCH ×2 (16:01→19:59)
[2018-07-27] MEDS ORDERED: HYDROmorphone INJ* 1 MG/ML CARPUJECT SYRINGE IV SLOW PU ONE (20:54)
[2018-07-27] MEDS ORDERED: oxyCODONE SR TAB(*) 20 MG TAB.SR PO SCH (21:00)
[2018-07-27] MEDS ORDERED: HYDROmorphone INJ1* 1 MG/ML SYRINGE ONE ×2 (21:00→21:59)
[2018-07-27] MEDS ORDERED: oxyCODONE SR TAB(*) 10 MG TAB.SR PO ONE (21:45)
[2018-07-27] MEDS ORDERED: HYDROmorphone INJ1* 1 MG/ML SYRINGE IV SLOW PU ONE (22:00)
[2018-07-28] MEDS: HYDROmorphone INJ1* 1 MG/ML SYRINGE IV SLOW PU PRN ×3 (00:03→06:23)
[2018-07-28] MEDS: niCARdipine 0.1MG/ML IVPREMIX* 20 MG/200 ML BAG IV SCH ×3 (01:10→10:54)
[2018-07-28] MEDS ORDERED: HYDROmorphone INJ1* 1 MG/ML SYRINGE IV PRN (05:15)
[2018-07-28] MEDS ORDERED: HYDROmorphone INJ1* 1 MG/ML SYRINGE ONE (05:20)
[2018-07-28 05:34] LABS: Hematocrit 35 % (42-52); Hemoglobin 11.5 g/dl (14.0-18.0); Mean Corpuscular HGB Conc 33 g/dl (31-36); Mean Corpuscular Hemoglobin 29 pg (27-31); Mean Corpuscular Volume 86 fL (80-94); Platelet Count 267 10^3/ul (150-450); Red Blood Count 4.02 10^6/ul (4.00-5.40); Red Cell Distribution Width 14 % (10.5-15); White Blood Count 10.9 10^3/ul (3.5-10.8)
[2018-07-28] MEDS: Acetaminophen TAB* 325 MG PO SCH ×2 (08:23→21:16)
[2018-07-28] MEDS: Lisinopril TAB* 10 MG PO SCH (08:23)
[2018-07-28] MEDS: hydrALAZINE TAB* 100 MG ** ONE HUNDRED PO SCH ×3 (08:24→21:16)
[2018-07-28] MEDS: Gabapentin CAP(*) 300 MG PO SCH ×3 (08:24→21:16)
[2018-07-28] MEDS: amLODIPine TAB* 5 MG PO SCH (08:24)
[2018-07-28] MEDS: Carvedilol TAB* 6.25 MG PO SCH ×2 (08:24→21:16)
[2018-07-28] MEDS ORDERED: oxyCODONE SR TAB(*) 20 MG TAB.SR PO SCH (09:00)
[2018-07-28] MEDS: Insulin LISPRO* 1 UNITS UNIT SUBCUT SCH ×3 (09:02→17:47)
--- NOTE | 2018-07-28 10:07 | PN ---
Progress Note - Progress Note Date of Service: 07/28/18 SOAP: Subjective: [Patient s/p proximal BAKER SECOND shunt revision on 07/26/18. Headache improved post-op, periorbital swelling decreased. Patient up to the chair yesterday.] Objective: [ Vital Signs: Temp Pulse Resp BP Pulse Ox 98.4 F 89 10 159/81 98 07/28/18 08:28 07/28/18 09:00 07/28/18 09:00 07/28/18 09:00 07/28/18 09:00 General: Alert, laying in bed, NAD. Neuro: Motor and sensory normal. [place] refills when depressed. Incision: Intact, no swelling. ] Assessment: [Satisfactory post-op. Relatively unmotivated. Remains in ICU for cardizem drip. ] Plan: [1. Up out of bed several times today. 2. Discontinue IV pain medication. 3. Post op PT evaluation.]
[2018-07-28] MEDS ORDERED: HYDROmorphone INJ1* 1 MG/ML SYRINGE IV SLOW PU PRN ×3 (11:23→20:48)
[2018-07-28] MEDS ORDERED: Carvedilol TAB* 6.25 MG PO ONE (11:24)
[2018-07-28] MEDS ORDERED: oxyCODONE TAB* 5 MG TAB PO ONE (11:26)
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
[2018-07-28] MEDS ORDERED: Magnesium Hydroxide LIQ* 30 ML UDC PO PRN (13:25)
[2018-07-28] MEDS: Methocarbamol TAB* 500 MG PO PRN ×2 (14:07→23:23)
[2018-07-28] MEDS: oxyCODONE TAB* 5 MG TAB PO PRN ×3 (14:42→22:08)
[2018-07-28] MEDS: oxyCODONE SR TAB(*) 20 MG TAB.SR PO SCH ×2 (14:43→23:23)
[2018-07-28] MEDS: Isosorbide Mononitrate ER TAB* 30 MG PO SCH (16:37)
[2018-07-28] MEDS: Docusate CAP* 100 MG PO SCH (21:16)
[2018-07-28] MEDS: Senna TAB PO SCH (21:16)
[2018-07-29 06:13] LABS: Hematocrit 37 % (42-52); Hemoglobin 12.4 g/dl (14.0-18.0); Mean Corpuscular HGB Conc 33 g/dl (31-36); Mean Corpuscular Hemoglobin 29 pg (27-31); Mean Corpuscular Volume 87 fL (80-94); Mean Platelet Volume 7.2 um3 (7.4-10.4); Platelet Count 270 10^3/ul (150-450); Red Cell Distribution Width 15 % (10.5-15); White Blood Count 5.1 10^3/ul (3.5-10.8)
[2018-07-29 06:33] LABS: EGFR Non-African American 103.8 (>60)
[2018-07-29] MEDS: Pregabalin CAP(*) 100 MG PO SCH (07:39)
[2018-07-29] MEDS: hydrALAZINE TAB* 100 MG ** ONE HUNDRED PO SCH ×3 (07:39→21:22)
[2018-07-29] MEDS: Docusate CAP* 100 MG PO SCH ×2 (07:40→21:21)
[2018-07-29] MEDS: Lisinopril TAB* 10 MG PO SCH (07:40)
[2018-07-29] MEDS: Carvedilol TAB* 6.25 MG PO SCH ×2 (07:40→21:22)
[2018-07-29] MEDS: Isosorbide Mononitrate ER TAB* 30 MG PO SCH (07:40)
[2018-07-29] MEDS: amLODIPine TAB* 5 MG PO SCH (07:41)
[2018-07-29] MEDS: oxyCODONE SR TAB(*) 20 MG TAB.SR PO SCH ×3 (07:41→22:51)
[2018-07-29] MEDS: Acetaminophen TAB* 325 MG PO SCH ×2 (07:41→21:21)
[2018-07-29] MEDS: oxyCODONE TAB* 5 MG TAB PO PRN ×5 (07:48→23:49)
[2018-07-29] MEDS: Insulin LISPRO* 1 UNITS UNIT SUBCUT SCH ×4 (09:10→21:23)
[2018-07-29] MEDS: Methocarbamol TAB* 500 MG PO PRN ×2 (16:34→22:51)
--- NOTE | 2018-07-29 16:37 | PN ---
Progress Note - Progress Note Date of Service: 07/29/18 SOAP: Subjective: [S/p BLOW TORCH OPERATOR shunt proximal catheter revision on 07/26/18. Patient is feeling much better today. He was seen by PT and has been ambulating the nursing unit several times today. Using walker for assistance. Denies headache and nausea. Mild posterior neck pain and soreness. Eating and drinking without difficulty. ] Objective: [ Vital Signs: Temp Pulse Resp BP Pulse Ox 97.6 F 90 18 168/73 99 07/29/18 11:20 07/29/18 11:20 07/29/18 15:42 07/29/18 11:20 07/29/18 11:20 General: Alert and recumbent in bed, NAD. Neuro: Motor and sensory normal. [place] refills when depressed. Incision: Intact with ari. No swelling or erythema. ] Assessment: [Patient transferred to short stay today. Stable, activity improving. ] Plan: [1. Encourage up out of bed and ambulation. 2. Appreciate Dr. Moore pain management 3. Possible dc tomorrow
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
[2018-07-29] MEDS ORDERED: Insulin LISPRO* 1 UNITS UNIT SUBCUT ONE (17:26)
[2018-07-29] MEDS ORDERED: HYDROmorphone INJ1* 1 MG/ML SYRINGE IV SLOW PU PRN (18:26)
[2018-07-29] MEDS: Senna TAB PO SCH (21:21)
[2018-07-30] MEDS: oxyCODONE TAB* 5 MG TAB PO PRN ×5 (03:59→20:02)
[2018-07-30 06:05] LABS: Hematocrit 38 % (42-52); Hemoglobin 12.3 g/dl (14.0-18.0); Mean Corpuscular HGB Conc 33 g/dl (31-36); Mean Corpuscular Hemoglobin 28 pg (27-31); Mean Corpuscular Volume 87 fL (80-94); Mean Platelet Volume 7.1 um3 (7.4-10.4); Platelet Count 323 10^3/ul (150-450); Red Blood Count 4.33 10^6/ul (4.00-5.40); Red Cell Distribution Width 15 % (10.5-15); White Blood Count 6.5 10^3/ul (3.5-10.8)
[2018-07-30 06:18] LABS: EGFR Non-African American 97.9 (>60)
--- NOTE | 2018-07-30 07:50 | PN ---
Progress Note - Progress Note Date of Service: 07/30/18 SOAP: Subjective: [S/p CHEMICAL OPERATOR shunt proximal catheter revision POD#4. Patient feeling much better yesterday and this morning. Ambulating well and using walker. Pain is better managed now. Denies headache and nausea. Has worked with PT.] Objective: [ Vital Signs: Temp Pulse Resp BP Pulse Ox 98.3 F 81 16 164/83 99 07/30/18 03:59 07/30/18 03:59 07/30/18 05:56 07/30/18 03:59 07/30/18 03:59 General: Alert and sitting up at bedside. NAD Neuro: Motor and sensory intact. [place] refills when depressed. Incision: Intact with ari. No swelling or erythema. ] Assessment: [Stable post-op. Shunt functioning well.] Plan: [1. Able to be discharged home from neurosurgery standpoint. 2. Discharge instructions discussed with the patient. ]
[2018-07-30] MEDS: Lisinopril TAB* 10 MG PO SCH (07:53)
[2018-07-30] MEDS: Acetaminophen TAB* 325 MG PO SCH ×2 (07:53→21:24)
[2018-07-30] MEDS: Methocarbamol TAB* 500 MG PO PRN ×3 (07:53→21:26)
[2018-07-30] MEDS: Isosorbide Mononitrate ER TAB* 30 MG PO SCH (07:54)
[2018-07-30] MEDS: hydrALAZINE TAB* 100 MG ** ONE HUNDRED PO SCH ×3 (07:54→21:23)
[2018-07-30] MEDS: Docusate CAP* 100 MG PO SCH ×2 (07:54→21:23)
[2018-07-30] MEDS: Carvedilol TAB* 6.25 MG PO SCH (07:55)
[2018-07-30] MEDS: oxyCODONE SR TAB(*) 20 MG TAB.SR PO SCH ×3 (07:55→23:16)
[2018-07-30] MEDS: amLODIPine TAB* 5 MG PO SCH (07:55)
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
[2018-07-30] MEDS ORDERED: Pregabalin CAP(*) 50 MG ONE (09:09)
[2018-07-30] MEDS ORDERED: Carvedilol TAB* 6.25 MG ONE (09:10)
[2018-07-30] MEDS: Pregabalin CAP(*) 100 MG PO SCH (09:11)
[2018-07-30] MEDS: Insulin LISPRO* 1 UNITS UNIT SUBCUT SCH ×4 (09:12→21:27)
[2018-07-30] MEDS: Carvedilol TAB* 25 MG PO SCH ×2 (09:14→21:24)
[2018-07-30] MEDS: Acetaminophen TAB* 325 MG PO PRN (15:28)
[2018-07-30] MEDS ORDERED: HYDROmorphone INJ1* 1 MG/ML SYRINGE IV SLOW PU PRN (17:35)
[2018-07-30] MEDS: Senna TAB PO SCH (21:23)
[2018-07-30] MEDS: metFORMIN* 1,000 MG TAB PO SCH (21:24)
[2018-07-31] MEDS: oxyCODONE TAB* 5 MG TAB PO PRN ×5 (00:04→16:18)
[2018-07-31] MEDS: Methocarbamol TAB* 500 MG PO PRN ×2 (04:10→12:21)
[2018-07-31] MEDS: oxyCODONE SR TAB(*) 20 MG TAB.SR PO SCH ×2 (07:52→14:37)
[2018-07-31] MEDS: Lisinopril TAB* 10 MG PO SCH (07:53)
[2018-07-31] MEDS: Pregabalin CAP(*) 100 MG PO SCH (07:54)
[2018-07-31] MEDS: Docusate CAP* 100 MG PO SCH (07:54)
[2018-07-31] MEDS: hydrALAZINE TAB* 100 MG ** ONE HUNDRED PO SCH ×2 (07:54→14:35)
[2018-07-31] MEDS: Acetaminophen TAB* 325 MG PO SCH (07:56)
[2018-07-31] MEDS: amLODIPine TAB* 5 MG PO SCH (07:57)
[2018-07-31] MEDS: Carvedilol TAB* 25 MG PO SCH (07:57)
[2018-07-31] MEDS: Isosorbide Mononitrate ER TAB* 30 MG PO SCH (07:57)
[2018-07-31] MEDS: metFORMIN* 1,000 MG TAB PO SCH (09:44)
[2018-07-31] MEDS: Insulin LISPRO* 1 UNITS UNIT SUBCUT SCH ×2 (09:44→14:34)
[2018-07-31 12:03] VITALS: BP 135/53
--- NOTE | 2018-08-01 11:42 | DS ---
AMENDED REPORT NOW INCLUDES DESIGNATED COSIGNER CC: Dr. Sebastian Baugh; Dr. Uribe.* DISCHARGE SUMMARY: DATE OF ADMISSION: 07/24/18 DATE OF DISCHARGE: 07/31/18 PRIMARY CARE PROVIDER: Dr. Sebastian Baugh at [facility]. NEUROSURGEON: Dr. Uribe. ATTENDING PHYSICIAN: Dr. Michel * (dictated by Pastora Lee NP). PRIMARY DIAGNOSES: 1. Status post JUNIOR GRAPHIC DESIGNER shunt revision. 2. Hypertension. 3. Headache. SECONDARY DIAGNOSES: 1. Diabetes mellitus, type 2. 2. Obstructive sleep apnea, on home CPAP. STUDIES WHILE IN THE HOSPITAL: 1. Brain CT on 07/24/18, reads as the ventricular shunt catheter is located along the anterior edge of the frontal horn of the right lateral ventricle. There is an area of decreased attenuation in the right frontal lobe, which has increased slightly in size from the prior study that is a nonspecific finding and may represent localized edema, cerebritis, or infarction. HISTORY OF PRESENT ILLNESS AND HOSPITAL COURSE: Mr. Julien is a 58-year-old male with past medical history of JUNIOR GRAPHIC DESIGNER shunt for normal pressure hydrocephalus, diabetes, hypertension, and traumatic brain injury, who presented to the emergency room on 07/24/18 with complaints of nausea, vomiting, headache, and inability to tolerate oral intake. Please see the history and physical by Mable Frias NP for complete summary of the events leading up to this hospitalization. In short, the patient had a JUNIOR GRAPHIC DESIGNER shunt placed on 07/13/18 and was discharged home on 07/17/18. He had been feeling unwell since discharge. He reported significant headache, nausea, and vomiting when he sat up. He saw Dr. Uribe the day prior to admission, who decreased the CSF fluid flow from the shunt, although his symptoms were note relieved and he presented to the emergency room. In the emergency room, he was noted to be significantly hypertensive with a systolic blood pressure in the 200s. He was admitted by the hospitalist service. Dr. Uribe saw the patient on 07/25/18; at which point, he suspected the proximal shunt catheter was not draining and he planned to take the patient to the OR on Thursday for a revision. After surgery, the patient experienced hypertensive emergency with a systolic pressure greater than 220, which was essentially unresponsive to IV medication; at which point, he was transferred to the intensive care unit. He was placed on a Cardene drip with a target systolic blood pressure of 140 to 160. Ultimately, he required multiple medication changes. He was placed on amlodipine and Imdur. He was changed from atenolol to carvedilol and his hydralazine dose was increased. His lisinopril dose remained the same. He was seen by Dr. Moore on 07/28/18 for a pain consultation; at that point, he recommended putting the patient back on his Lyrica and stopping gabapentin and he placed the patient on oral oxycodone. By 07/30/18, the patient was cleared for discharge from a neurosurgery standpoint; however, his blood pressure remained elevated with a systolic of 140 to 170. His Coreg was increased further. Other medications remained the same. As of the day of discharge, the patient reports feeling well. He has no headache. No nausea, vomiting. No other complaints. Blood pressures over the past 24 hours have been in the 120s to 150s. The patient is anxious to return home. Mr. Julien is stable for discharge today. Vital signs are as follows: Temp 96.9, heart rate 77, respiratory rate 16, oxygen saturation 96% on room air, blood pressure 135/53. DISCHARGE MEDICATIONS: New home medications: 1. Amlodipine 10 mg p.o. daily. 2. Carvedilol 25 mg p.o. b.i.d. 3. Imdur 30 mg p.o. daily. 4. Oxycodone 15 mg p.o. q.4 hours p.r.n. pain. Changed home medications: 1. Hydralazine 100 mg p.o. t.i.d. (previously was 20 mg p.o. b.i.d.) Continued home medications: 1. Metformin 1000 mg p.o. b.i.d. 2. Trazodone 200 mg p.o. at bedtime p.r.n. 3. Aspirin 81 mg p.o. daily. 4. Docusate 100 mg p.o. b.i.d. 5. Duloxetine 30 mg p.o. daily. 6. Glipizide 10 mg p.o. b.i.d. 7. Levothyroxine 175 mcg p.o. daily. 8. Lisinopril 40 mg p.o. daily. 9. Oxycodone SR 20 mg p.o. t.i.d. 10. Oxycodone 10 mg p.o. q.4 hours p.r.n. 11. Lyrica 400 mg p.o. daily. 12. Phenergan 12.5 mg p.o. q.6 hours p.r.n. 13. Simvastatin 40 mg p.o. daily. Discontinued home medications: 1. Atenolol. DISCHARGE PLAN: Mr. Julien will be discharged to home. Activity per Neurosurgery: ambulate frequently with no heavy lifting. Diet should be a diabetic diet. Medications are noted above. Regarding pain, I have prescribed the patient oxycodone 15 mg every 4 hours as needed for 3 days; after that, he should resume his usual dose of 10 mg p.o. q.4 hours as needed. We have added multiple blood pressure medications including amlodipine, carvedilol, Imdur and his hydralazine dose has been increased. I have spoken with the patient at length about this and he is very hesitant to change his home medication regimen. He does have a blood pressure machine at home and states he will check his blood pressure multiple times a day. It is unclear if he will actually be compliant with the change in blood pressure medications. He should follow up with his primary care provider in 4 to 7 days. He will need to follow up with Dr. Uribe on 07/30/18. He has been instructed to return to the emergency room or nearest hospital for any worsening of symptoms, shortness of breath, lightheadedness, dizziness, chest discomfort, high fevers, chills, night sweats, loss of consciousness, or any other worsening signs or symptoms. This is a summarized report of a complex medical history and hospital stay. For further details, please see the entire medical record. TIME SPENT: Approximately 60 minutes were spent on this discharge, greater than half of that time spent with the patient and his family discussing discharge plans and instructions. PASTORA LEE NP [id number]/[facility] #: [id number] FELIPA
--- NOTE | 2018-08-10 05:47 | OP ---
DATE OF OPERATION: 07/26/18 - ROOM #347 DATE OF : 60 SURGEON: Dk Uribe MD ANESTHESIA: Local with monitored anesthesia care. PRE-OP DIAGNOSIS: Malfunctioning right frontal ventricular catheter. POST-OP DIAGNOSIS: Malfunctioning right frontal ventricular catheter. OPERATIVE PROCEDURE: Right frontal replacement of ventricular drain. DESCRIPTION OF PROCEDURE: This patient had previously undergone elective ventricular peritoneal shunting for normal pressure hydrocephalus. Postoperatively, he had improved, but then developed recurrent difficulty walking as well as severe headaches. Imaging had been obtained, which suggested the proximal migration of his ventricular catheter and he was brought back at this time for elective replacement of his ventricular catheter. After satisfactory sedation was obtained, local anesthesia was applied to his previous incision and the incision opened. The previous ventricular catheter was disconnected, indeed appeared to be still working intermittently. This was removed and replaced with a Trauma ventricular catheter which was placed to a depth of 6 cm. It was then trimmed to length and secured to his shunt system, connected with a 2-0 silk tie. After doing this, the shunt was noted to depress and refill promptly. It was felt that a satisfactory placement had been achieved. The wound was thoroughly irrigated after which the subcutaneous tissues were reapproximated with 3-0 Vicryl suture and the skin closed with skin clips. The estimated blood loss was less than 50 cc and final sponge, padding, and needle counts were correct. The patient was taken to the recovery room, extubated, and in stable condition. [id number]/[facility] #: [id number] MTDD
== END 2018-07-31 16:00 | disposition home or self-care (01) | DRG 982 ==
LOC: ED 13:10 → MED 15:02 → OBSVTOIN 07-25 13:00 → SSU 07-26 14:23 → ICU 07-26 16:25 → SSU 07-28 23:16
PROVIDERS: ADMIT Internal Medicine; ATTEND Internal Medicine Critical Care Medicine
PROC: 00W60JZ Revision of Synthetic Substitute in Cerebral Ventricle, Open Approach (ICD-10-PCS; principal; 2018-07-26 11:00)
DX: I16.0 Hypertensive urgency (principal); T85.890A Other specified complication of nervous system prosthetic devices, implants and grafts, initial encounter; G91.2 (Idiopathic) normal pressure hydrocephalus; T85.09XA Other mechanical complication of ventricular intracranial (communicating) shunt, initial encounter; D55.0 Anemia due to glucose-6-phosphate dehydrogenase [G6PD] deficiency; I10 Essential (primary) hypertension; E11.8 Type 2 diabetes mellitus with unspecified complications; E23.6 Other disorders of pituitary gland; G47.33 Obstructive sleep apnea (adult) (pediatric); R51 Headache; G40.909 Epilepsy, unspecified, not intractable, without status epilepticus; M21.372 Foot drop, left foot; G89.29 Other chronic pain; E03.9 Hypothyroidism, unspecified; X58.XXXA Exposure to other specified factors, initial encounter; Z87.820 Personal history of traumatic brain injury; Z79.84 Long term (current) use of oral hypoglycemic drugs; Z79.82 Long term (current) use of aspirin; Z79.891 Long term (current) use of opiate analgesic; Z79.899 Other long term (current) drug therapy; Z88.0 Allergy status to penicillin; Z88.2 Allergy status to sulfonamides; Z88.8 Allergy status to other drugs, medicaments and biological substances; Z80.1 Family history of malignant neoplasm of trachea, bronchus and lung
CPT/HCPCS: 36415; 70450; 80048; 80053; 82945; 83605; 83735; 83880; 84100; 84157; 85025; 85027; 85610; 85730; 86140; 87040; 87070; 87205; 99284; A9270-GY; G0378; G8978-GP-CI; G8979-GP-CI; G8980-GP-CI; J0360; J0780; J1170; J1885; J2250; J2270; J2405; J3010; J3475; J3490

== ENCOUNTER 2018-09-03 13:44 | Inpatient (IN) | payer MEDICARE, OTHER ==
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
--- OUTSIDE RECORDS SUMMARY | 2018-09-03 14:23 | XMS REPORT | Continuity of Care Document ---
:1960 External Reference #:[id number] Author Name Darcy Kovacs Care Team Providers Name Role Phone Delmer Camejo M.D. 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 Primary Care Physician Unavailable Payers Type Date Identification Numbers Payment Provider Subscriber Policy Number: [id number] Medicare Jesse Julien JR PayID: [id number] [address] [place] [address] Expires: 2018 Policy Number: [id number] Medicare Jesse Julien JR PayID: [id number] [address] [place] [address] Policy Number: [id number] [facility] Jesse Julien JR PayID: [id number] [address] [place] [address] Advance Directives Description No Information Available Problems Date Description Provider Status Onset: 01/25/2015 Chronic headache disorder Radha Lim M.D. Active Onset: 01/25/2015 Dissociative convulsions Radha Lim M.D. Active Onset: 01/25/2015 Lyme disease Radha Lim M.D. Active Onset: 01/25/2015 Sleep apnea Radha Lim M.D. Active Onset: 02/15/2018 Migraine without aura, not Delmer Camejo M.D. Active refractory Onset: 02/15/2018 Amnesia Delmer Camejo M.D. Active Onset: 02/15/2018 Communicating hydrocephalus Delmer Camejo M.D. Active Onset: 02/15/2018 Transient altered mental status Delmer Camejo M.D. Active Onset: 02/15/2018 Chronic fatigue syndrome Delmer Camejo M.D. Active Onset: 04/15/2018 Backache Delmer Camejo M.D. Active Onset: 04/15/2018 Chronic pain Delmer Camejo M.D. 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 Active of central nervous system Onset: 06/09/2018 Muscle weakness Delmer Camejo M.D. Active Onset: 06/25/2018 Nervous system symptoms Delmer Camejo M.D. Active Onset: 06/30/2018 Normal pressure hydrocephalus Dk Uribe M.D. Active Onset: 07/23/2018 Convalescence after surgery Dk Uribe M.D. Active Onset: 07/14/2018 Acute renal failure syndrome Anali Espinal NP Active Onset: 07/14/2018 Hyperkalemia Anali Espinal NP Active Onset: 07/15/2018 Type 2 diabetes mellitus Jeni Mchugh M.D. Active Onset: 07/15/2018 Essential hypertension Jeni Mchugh M.D. Active Family History Date Family Member(s) Problem(s) Comments General Diabetes General Hypertension Social History Type Date Description Comments Sex Unknown Marital Status Lives With Spouse Work Status Retired [place] [employer] Left-Handed ETOH Use Rarely consumes alcohol Glass of wine, has not had since Sep 2017 Tobacco Use Start: Unknown Patient has never smoked Recreational Drug Use Denies Drug Use Smoking Status Reviewed: 08/25/18 Patient has never smoked Allergies, Adverse Reactions, Alerts Date Description Reaction Status Severity Comments 05/13/2013 Aspirin Active 05/13/2013 Sulfa Antibiotics Active 12/13/2013 Penicillins Increased bleeding Active Medications Medication Date Status Form Strength Qnty SIG Indications Ordering Provider Xanax 08/09/ Active Tablets 0.5mg 30tab 1 three Z48.89 Dk 2017 s times a [place], day as M.D. needed Ibuprofen 11/05/ Active Tablets 800mg 60tab 1 tab by G43.009 Delmer 2017 s mouth for Cholo Camejo headache Lyrica 12/13/ Active Capsules 100mg 120ca 2 [...] 0000 s at bedtime as needed Glipizide / Active Tablets 10mg 1 by mouth Unknown 0000 bid Metformin HCL / Active Tablets 1000mg 1 by mouth Unknown 0000 twice a day Androgel / Active Gel apply 5 Unknown 0000 pumps daily. Oxycodone HCL / Active Tablets 10mg as needed Unknown 0000 Oxycodone HCL / Active Tab ER 12H 20mg 1 tab Unknown ER 0000 Abuse-Det three times a day Lorazepam 04/05/ Hx Tablets 1mg 2tabs 1 tablet Charmaine 2018 - po 30 min [place], 04/14/ prior to M.D. 2018 MRI may take 1 more tablet if still anxious Lyrica 07/29/ Hx Capsules 50mg 180ca 3 tabs by Radha Miller 2012 - ps mouth at [facility], 12/13/ bedtime as M.D. 2013 directed Cymbalta [...] tablet Unknown Monohydrate 0000 - by mouth 2018 hours Immunizations Description No Information Available Vital Signs Date Vital Result Comment 08/25/2018 11:21am Height 72 inches 6'0" Weight 242.00 lb BP Systolic Sitting 130 mmHg BP Diastolic Sitting 70 mmHg Pain Level 4 BMI (Body Mass Index) 32.8 kg/m2 08/23/2018 11:22am Height 72 inches 6'0" Weight 242.00 lb BP Systolic Sitting 180 mmHg BP Diastolic Sitting 80 mmHg Pain Level 8 BMI (Body Mass Index) 32.8 kg/m2 08/09/2018 11:17am Height 72 inches 6'0" Weight 242.00 lb Heart Rate 76 /min BP Systolic Sitting 130 mmHg Lue lg cuff BP Diastolic Sitting 68 mmHg Lue lg cuff Body Temperature 97.6 F Pain Level 7 BMI (Body Mass Index) 32.8 kg/m2 07/23/2018 11:49am Height 72 inches 6'0" Weight 250.00 lb BP Systolic Sitting 160 mmHg BP Diastolic Sitting 100 mmHg Pain Level 10 BMI (Body Mass Index) 33.9 kg/m2 06/30/2018 9:32am Height 72 inches 6'0" Weight 250.00 lb BP Systolic Sitting 118 mmHg BP Diastolic Sitting 80 mmHg Pain Level 4 BMI (Body Mass Index) 33.9 kg/m2 06/25/2018 12:00pm Height 72 inches 6'0" Weight 250.00 lb Heart Rate 64 /min BP Systolic 108 mmHg BP Diastolic 66 mmHg Respiratory Rate 20 /min BMI (Body Mass Index) 33.9 kg/m2 06/09/2018 9:37am Height 72 inches 6'0" Weight 250.00 lb Heart Rate 78 /min BP Systolic Sitting 123 mmHg BP Diastolic Sitting 80 mmHg BMI (Body Mass Index) 33.9 kg/m2 04/15/2018 3:41pm Height 72 inches 6'0" Weight 253.38 lb BP Systolic 118 mmHg BP Diastolic 72 mmHg BMI (Body Mass Index) 34.4 kg/m2 02/15/2018 2:12pm Height 72 inches 6'0" Weight 255.00 lb Heart Rate 68 /min BP Systolic Sitting 144 mmHg BP Diastolic Sitting 82 mmHg Respiratory Rate 16 /min BMI (Body Mass Index) 34.6 kg/m2 11/05/2017 2:05pm Height 72 inches 6'0" Weight 255.00 lb Heart Rate 78 /min BP Systolic Sitting 138 mmHg BP Diastolic Sitting 88 mmHg Respiratory Rate 16 /min BMI (Body Mass Index) 34.6 kg/m2 10/30/2016 9:58am Height 72 inches 6'0" Weight 255.00 lb Heart Rate 74 /min BP Systolic Sitting 132 mmHg BP Diastolic Sitting 82 mmHg Respiratory Rate 16 /min BMI (Body Mass Index) 34.6 kg/m2 11/01/2015 3:14pm Height 72 inches 6'0" Weight 250.00 lb Heart Rate 60 /min BP Systolic Sitting 118 mmHg BP Diastolic Sitting 62 mmHg Respiratory Rate 14 /min BMI (Body Mass Index) 33.9 kg/m2 01/25/2015 2:57pm Height 72 inches 6'0" Weight 257.00 lb Heart Rate 72 /min BP Systolic Sitting 130 mmHg BP Diastolic Sitting 72 mmHg Respiratory Rate 16 /min BMI (Body Mass Index) 34.9 kg/m2 04/27/2014 3:00pm Height 72 inches 6'0" Weight 238.00 lb Heart Rate 60 /min BP Systolic Sitting 122 mmHg BP Diastolic Sitting 76 mmHg Respiratory Rate 16 /min BMI (Body Mass Index) 32.3 kg/m2 12/13/2013 11:55am Heart Rate 70 /min BP Systolic Sitting 120 mmHg BP Diastolic Sitting 68 mmHg Respiratory Rate 16 /min 07/29/2013 1:03pm Heart Rate 60 /min BP Systolic Sitting 124 mmHg BP Diastolic Sitting 82 mmHg Respiratory Rate 18 /min 05/13/2013 1:15pm Height 72 inches 6'0" Weight 245.00 lb Heart Rate 76 /min BP Systolic Sitting 112 mmHg BP Diastolic Sitting 70 mmHg Respiratory Rate 16 /min BMI (Body Mass Index) 33.2 kg/m2 Results Test Date Facility Test Result H/L Range Note Protein 06/22/2018 [facility] Total 7.3 g/dL 6.3 - 7.[address] Protein([place] [address] ) [phone] Albumin 3.5 g/dL 3.4-4.7 Alpha-1 Globulin 0.3 g/dL 0.1-0.3 Alpha-2 Globulin 1.3 g/dL Abnormal 0.6-1.0 Beta Globulin 1.2 g/dL 0.7-1.2 Gamma Globulin 1.1 g/dL 0.6-1.6 Albumin/Globulin Ratio 0.90 Impression See Comment 1 CSF Studies 06/22/2018 [facility] CSF Protein <pending> [address] [place] [address] [phone] CSF Glucose <pending> Oligoclonal Bands <pending> CSF Immunoglobulin G (Igg) <pending> CSF Angiotension Conv Enz <pending> Viral Culture Non Respiratory <pending> Oligoclonal Bands 06/22/2018 [facility] CSF Oligoclonal [address] [place] [address] [phone] Serum Oligoclonal Bands 2 bands Oligoclonal Proteins Interpret 2 bands <4 2 Laboratory test 06/22/2018 [facility] CSF Immunoglobulin G < pending> finding [address] [facility] (Igg) [place] [address] [phone] Lyme Disease CSF <pending> Laboratory test finding 06/22/2018 [facility] RPR CSF <pending> [address] [place] [address] [phone] CSF Angiotension Conv Enz <pending> Coccidiodes Antibody CSF <pending> Cryptococcal Antigen <pending> Basic Metabolic Panel 06/22/2018 [facility] Sodium 137 mmol/L N 135-145 [address] [place] [address] [phone] Chloride 103 mmol/L N 101-111 Co2 Carbon Dioxide 27 mmol/L N 22-32 Glucose 140 mg/dL High 70-100 Blood Urea Nitrogen 14 mg/dL N 6-24 Creatinine 1.10 mg/dL N 0.67-1.17 BUN/Creatinine Ratio 12.7 N 8-20 Calcium 9.2 mg/dL N 8.6-10.3 Egfr Non- 68.8 >60 Egfr 83.2 >60 3 Potassium 5.3 mmol/L High 3.5-5.0 Anion Gap 7 mmol/L N 2-11 Laboratory test 06/09/2018 [facility] Myoglobin 29.8 ng/mL N 17.4-105.7 4, 5 finding [address] [place] [address] [phone] Nuclear AB (Carolyn) By Ifa Igg <1:80 (Negative) 6 Protein 06/09/2018 [facility] Total 7.3 g/dL 6.3 - Electrophoresis [address] Protein(Pep) 7.9 [place] [address] [phone] Albumin 3.7 g/dL 3.4-4.7 Alpha-1 Globulin 0.3 g/dL 0.1-0.3 Alpha-2 Globulin 1.2 g/dL Abnormal 0.6-1.0 Beta Globulin 1.2 g/dL 0.7-1.2 Gamma Globulin 0.9 g/dL 0.6-1.6 Albumin/Globulin Ratio 1.04 Impression See Comment 7 Laboratory test finding 06/09/2018 [facility] Aldolase 3.6 U/L <7.7 8 [address] [place] [address] [phone] Creatine Kinase(CK) 127 U/L N 10-223 9 C Reactive Protein 3.89 mg/L N <8.01 10 Erythrocyte Sed Rate 29 mm/Hr High 0-20 Basic Metabolic 02/15/2018 [facility] Sodium 138 mmol/L Low 139-145 Panel [address] [place] [address] [phone] Potassium 4.8 mmol/L N 3.5-5.0 Chloride 104 mmol/L N 101-111 Co2 Carbon Dioxide 26 mmol/L N 22-32 Anion Gap 8 mmol/L N 2-11 Glucose 130 mg/dL High 70-100 Blood Urea Nitrogen 18 mg/dL N 6-24 Creatinine 1.10 mg/dL N 0.67-1.17 BUN/Creatinine Ratio 16.4 N 8-20 Calcium 9.2 mg/dL N 8.6-10.3 Egfr Non- 69.0 >60 Egfr 88.7 >60 11 Laboratory test 02/15/2018 [facility] Vitamin B12 259 pg/mL N 180-914 12 finding [address] [place] [address] [phone] Folic Acid (Folate) 14.01 ng/mL >3.99 TSH (Thyroid Stim Horm) 0.30 mcIU/mL Low 0.34-5.60 Free T4 (Free Thyroxine) 0.93 ng/dL N 0.61-1.12 1 RESULT: No apparent monoclonal protein on serum electrophoresis. Test Performed by: [address] [address] 2 The oligoclonal band assay detected 3 [...] cerebrovascular, and paraneoplastic disorders. Test Performed by: [place] [address] 3 Because ethnic data is not always [...] REFERENCE VALUE <1:80 (Negative) Test Performed by: [place] [address] 7 RESULT: No apparent monoclonal protein on serum electrophoresis. Test Performed by: [place] [address] 8 Test Performed by: [place] [address] 9 FASTING 10 FASTING 11 Because ethnic [...] to 180 Deficient Range <145 Procedures Date Code Description Status 07/26/2018 69928 Replacement Or Irrigation Ventrical Catheter Completed 07/13/2018 55844 Creation Of Shunt;Ventriculo-Peritoneal,-Pleural, Other Completed Terminus 07/13/2018 14578 Creation Of Shunt;Ventriculo-Peritoneal,-Pleural, Other Completed Terminus 06/14/2018 00875 EEG Recording Awake & Drowsy Completed 05/17/2013 89131 EEG Recording Awake & Drowsy Completed Encounters Type Date Location Provider Dx Diagnosis Office Visit 07/31/2018 [facility] Pastora Lee, I16.1 Hypertensive 8:01a mireya Lane NP emergency Hospitalists I10 Essential (primary) hypertension R51 Headache Z98.2 Presence of cerebrospinal fluid drainage device Office Visit 07/30/2018 [facility] E11.65 Type 2 diabetes 8:00a mireya Lane NP mellitus with Hospitalists hyperglycemia I10 Essential (primary) hypertension Z98.2 Presence of cerebrospinal fluid drainage device [facility] E11.65 Type 2 diabetes 8:00a mireya Lane NP mellitus with Hospitalists hyperglycemia R51 Headache I10 Essential (primary) hypertension Z98.2 Presence of cerebrospinal fluid drainage device Office Visit 07/28/2018 8:00a [facility] Artem Woods, I16.1 Hypertensive MD emergency I10 Essential (primary) hypertension R51 Headache M54.2 Cervicalgia Z98.2 Presence of cerebrospinal fluid drainage device Office Visit 07/27/2018 7:59a [facility] Artem [place], I16.1 Hypertensive MD emergency I10 Essential (primary) hypertension M54.2 Cervicalgia Z98.2 Presence of cerebrospinal fluid drainage device Office Visit 07/26/2018 7:59a [facility] Artem [place], I16.1 Hypertensive MD emergency I10 Essential (primary) hypertension R51 Headache Z98.2 Presence of cerebrospinal fluid drainage device Office Visit 07/26/2018 [facility] Trey Goldman I16.1 Hypertensive 7:58a mireya Lane MD emergency Hospitalists I10 Essential (primary) hypertension R51 Headache Z98.2 Presence of cerebrospinal fluid drainage device Office Visit 07/25/2018 [facility] Trey Goldman I16.1 Hypertensive 7:58a mireya Lane MD emergency Hospitalists I10 Essential (primary) hypertension R51 Headache Z98.2 Presence of cerebrospinal fluid drainage device Office Visit 07/24/2018 7:58a [facility] Mable Frias, I10 Essential ( primary) Assoc,pc N.P. hypertension Hospitalists I16.1 Hypertensive emergency R51 Headache R11.2 Nausea with vomiting, unspecified Z98.2 Presence of cerebrospinal fluid drainage device Office Visit 07/24/2018 Neurosurgery Dk Uribe, G91.2 (Idiopathic) 10:58a [facility] normal pressure hydrocephalus Office Visit 07/17/2018 [facility] Jeni Mchugh, N17.9 Acute kidney 8:11a mireya Lane M.D. 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 failure, Hospitalists unspecified E11.9 Type 2 diabetes mellitus without complications I10 Essential (primary) hypertension Office Visit 07/15/2018 [facility] Jeni Mchugh N17.9 Acute kidney 8:10a mireya Lane M.D. 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 R40.4 Transient alteration of awareness R53.82 Chronic fatigue, unspecified R29.6 Repeated falls G91.0 Communicating hydrocephalus Office Visit 06/09/2018 Neurohospitalist Delmer Camejo R41.3 Other 9:45a Clinic Ch[facility] amnesia R53.82 Chronic fatigue, unspecified M62.81 Muscle weakness (generalized) R40.4 Transient alteration of awareness R51 Headache R29.6 Repeated falls Office Visit 04/15/2018 [facility] Delmer Cameoj M54.9 Dorsalgia, 3:15p Neurologic Cholo unspecified [facility] G89.29 Other chronic pain G43.009 Migraine w/o aura, not intractable, w/o status migrainosus R41.3 Other amnesia R94.02 Abnormal brain scan Office Visit 03/04/2018 8:13a [facility] Anali M54.9 Dorsalgia, Assoc,mireya Espinal, unspecified Hospitalists [employer] G89.29 Other chronic pain M25.512 Pain in left shoulder M25.561 Pain in right knee Office Visit 02/28/2018 [facility] Trey Goldman M54.9 Dorsalgia, 8:08a Assoc,mireya Michel MD unspecified Hospitalists G89.29 Other chronic pain M25.512 Pain in left shoulder M25.561 Pain in right knee Office Visit 02/15/2018 [facility] Delmer G43.009 Migraine w/o 2:15p Neurologic Cholo Camejo aura, not [facility] intractable, w/o status migrainosus R41.3 Other amnesia G91.0 Communicating hydrocephalus R40.4 Transient alteration of awareness R53.82 Chronic fatigue, unspecified Office Visit 11/05/2017 [facility] Miller G43.009 Migraine w/o aura, 2:00p Neurologic Cholo Lim not intractable, [facility] w/o status migrainosus R40.4 Transient alteration of awareness Office Visit 10/30/2016 10:00a [facility] Neurologic Radha Lim, R51 Headache [facility] R40.4 Transient alteration of awareness Office Visit 11/01/2015 3:15p [facility] Neurologic Radha Lim, R51 Headache [facility] R40.4 Transient alteration of awareness G89.4 Chronic pain syndrome Office Visit 01/25/2015 3:00p [facility] Irina Lim, 784.0 Headache [facility] 780.02 Transient Alteration Of Awareness 088.81 Lyme Disease 780.93 Memory Loss Office Visit 04/27/2014 3:00p Sarah Miller 346.10 Migraine Common Neurologic Cholo Lim W/O Intractable [facility] W/O Status Migrainosus 780.02 Transient Alteration Of Awareness 088.81 Lyme Disease Office Visit 12/13/2013 11:45a [facility] Irina Lim, 784.0 Headache [facility] 780.02 Transient Alteration Of Awareness Office Visit 07/29/2013 1:00p [facility] Irina Miller 338.4 Chronic Pain [facility] M.D. Syndrome 784.0 Headache Office Visit 05/13/2013 1:00p [facility] Irina Lim, 784.0 Headache [facility] 780.02 Transient Alteration Of Awareness Office Visit 03/28/2013 11:04a [facility] Peri Avendaño 784.0 Headache Assoc, Hospitalists D.OMartha 088.81 Lyme Disease 274.00 Gouty Arthropathy, Unspecified Office Visit 03/28/2013 1:55p [facility] Mallika Klein 088.81 Lyme Disease Infectious Diseases Cholo Tsang Office Visit 03/26/2013 11:03a [facility], 784.0 Headache Assoc,mireya Emmanuel Hospitalists 331.3 Hydrocephalus Communicating 681.11 Onychia & Paronychia Toe 079.99 Viral Infection Unspec Plan of Treatment Future Appointment(s):10/04/2018 11:20 am - Dk Uribe M.D. at Neurosurgery [facility]09/06/2018 2:00 pm - Delmer Camejo M.D. at [facility] Neurologic [facility]08/25/2018 - Dk Uribe M.D.Z48.89 Encounter for other specified surgical aftercareFollow up:4 weeks
--- OUTSIDE RECORDS SUMMARY | 2018-09-03 14:23 | XMS REPORT | Continuity of Care Document ---
:1960 External Reference #:[id number] Author Name Colleen Abarca Care Team Providers Name Role Phone Delmer Camejo M.D. Care Team Information Writer Editor Unavailable Sebastian Baugh M.D. Primary Care Physician Unavailable Payers Type Date Identification Numbers Payment Provider Subscriber Policy Number: [id number] Medicare Jesse Julien JR PayID: [id number] [address] [place] [address] Expires: 2018 Policy Number: [id number] Medicare Jesse Julien JR PayID: [id number] [address] [place] [address] Policy Number: [id number] [facility] Jesse Julien JR PayID: [id number] [address] [place] [address] Advance Directives Description No Information Available Problems Date Description Provider Status Onset: 01/25/2015 Chronic headache disorder Radha Lmi M.D. Active Onset: 01/25/2015 Dissociative convulsions Radha [...] Status Lives With Spouse Work Status Retired [place] Hand Dominance Left-Handed ETOH Use Rarely consumes alcohol Glass of wine, has not had since Sep 2017 Tobacco Use Start: Unknown Patient has never smoked Recreational Drug Use Denies Drug Use Smoking Status Reviewed: 08/23/18 Patient has never smoked Allergies, Adverse Reactions, Alerts Date Description Reaction Status Severity Comments 05/13/2013 Aspirin Active 05/13/2013 Sulfa Antibiotics Active 12/13/2013 Penicillins Increased bleeding Active Medications Medication Date Status Form Strength Qnty SIG Indications Ordering Provider Xanax 08/09/ Active Tablets 0.5mg 30tab 1 three Z48.89 Dk 2017 s times a Craig, day as M.D. needed Ibuprofen 11/05/ Active [...] Radha Miller 2012 - ps mouth at [facility], 12/13/ bedtime as M.D. 2013 directed Cymbalta [...] Available Vital Signs Date Vital Result Comment 08/23/2018 11:22am Height 72 inches 6'0" Weight [...] Test Result H/L Range Note Protein 06/22/2018 [facility] Total 7.3 g/dL 6.3 - 7.[address] Protein([place] [address] ) [phone] Albumin 3.5 g/dL 3.4-4.7 Alpha-1 Globulin 0.3 g/dL 0.1-0.3 Alpha-2 Globulin 1.3 g/dL Abnormal 0.6-1.0 Beta Globulin 1.2 g/dL 0.7-1.2 Gamma Globulin 1.1 g/dL 0.6-1.6 Albumin/Globulin Ratio 0.90 Impression See Comment 1 CSF Studies 06/22/2018 [facility] CSF Protein <pending> [address] [place] [address] [phone] CSF Glucose <pending> Oligoclonal Bands <pending> CSF Immunoglobulin G (Igg) <pending> CSF Angiotension Conv Enz <pending> Viral Culture Non Respiratory <pending> Oligoclonal Bands 06/22/2018 [facility] CSF Oligoclonal [address] [place] [address] [phone] Serum Oligoclonal Bands 2 bands Oligoclonal Proteins Interpret 2 bands <4 2 Laboratory test 06/22/2018 [facility] CSF Immunoglobulin G < pending> finding 101 (Igg) [place] [address] [phone] Lyme Disease CSF <pending> Laboratory test finding 06/22/2018 [facility] RPR CSF <pending> [address] [place] [address] [phone] CSF Angiotension Conv Enz <pending> Coccidiodes Antibody CSF <pending> Cryptococcal Antigen <pending> Basic Metabolic Panel 06/22/2018 [facility] Sodium 137 mmol/L N 135-[address] [place] [address] [phone] Chloride 103 mmol/L N 101-111 Co2 Carbon Dioxide 27 mmol/L N 22-32 Glucose 140 mg/dL High 70-100 Blood Urea Nitrogen 14 mg/dL N 6-24 Creatinine 1.10 mg/dL N 0.67-1.17 BUN/Creatinine Ratio 12.7 N 8-20 Calcium 9.2 mg/dL N 8.6-10.3 Egfr Non- 68.8 >60 Egfr 83.2 >60 3 Potassium 5.3 mmol/L High 3.5-5.0 Anion Gap 7 mmol/L N 2-11 Laboratory test 06/09/2018 [facility] Myoglobin 29.8 ng/mL N 17.4-105.7 4, [address] [place] [address] [phone] Nuclear AB (Carolyn) By Ifa Igg <1:80 (Negative) 6 Protein 06/09/2018 [facility] Total 7.3 g/dL 6.3 - Electrophoresis [address] Protein(Pep) 7.9 [place] [address] [phone] Albumin 3.7 g/dL 3.4-4.7 Alpha-1 Globulin 0.3 g/dL 0.1-0.3 Alpha-2 Globulin 1.2 g/dL Abnormal 0.6-1.0 Beta Globulin 1.2 g/dL 0.7-1.2 Gamma Globulin 0.9 g/dL 0.6-1.6 Albumin/Globulin Ratio 1.04 Impression See Comment 7 Laboratory test finding 06/09/2018 [facility] Aldolase 3.6 U/L <7.7 8 [address] [place] [address] [phone] Creatine Kinase(CK) 127 U/L N 10-223 9 C Reactive Protein 3.89 mg/L N <8.01 10 Erythrocyte Sed Rate 29 mm/Hr High 0-20 Basic Metabolic 02/15/2018 [facility] Sodium 138 mmol/L Low 139-145 Panel [address] [place] [address] [phone] Potassium 4.8 mmol/L N 3.5-5.0 Chloride 104 mmol/L N 101-111 Co2 Carbon Dioxide 26 mmol/L N 22-32 Anion Gap 8 mmol/L N 2-11 Glucose 130 mg/dL High 70-100 Blood Urea Nitrogen 18 mg/dL N 6-24 Creatinine 1.10 mg/dL N 0.67-1.17 BUN/Creatinine Ratio 16.4 N 8-20 Calcium 9.2 mg/dL N 8.6-10.3 Egfr Non- 69.0 >60 Egfr 88.7 >60 11 Laboratory test 02/15/2018 [facility] Vitamin B12 259 pg/mL N 180-914 12 finding [address] [place] [address] [phone] Folic Acid (Folate) 14.01 ng/mL >3.99 TSH (Thyroid Stim Horm) 0.30 mcIU/mL Low 0.34-5.60 Free T4 (Free Thyroxine) 0.93 ng/dL N 0.61-1.12 1 RESULT: No apparent monoclonal protein on serum electrophoresis. Test Performed by: [address] [address] 2 The oligoclonal band assay detected 3 [...] cerebrovascular, and paraneoplastic disorders. Test Performed by: [place] [address] 3 Because ethnic data is not always [...] REFERENCE VALUE <1:80 (Negative) Test Performed by: [place] [address] 7 RESULT: No apparent monoclonal protein on serum electrophoresis. Test Performed by: [place] [address] 8 Test Performed by: [place] [address] 9 FASTING 10 FASTING 11 Because ethnic [...] <145 Procedures Date Code Description Status 07/26/2018 71819 Replacement Or Irrigation Ventrical Catheter Completed 07/13/2018 12385 Creation Of Shunt;Ventriculo-Peritoneal,-Pleural, Other Completed Terminus 07/13/2018 11416 Creation Of Shunt;Ventriculo-Peritoneal,-Pleural, Other Completed Terminus 06/14/2018 30632 EEG Recording Awake & Drowsy Completed 05/17/2013 61234 EEG Recording Awake & Drowsy Completed Encounters Type Date Location Provider Dx Diagnosis Office Visit 07/31/2018 [facility] Pastora Rosa, I16.1 Hypertensive 8:01a Assocmireya AIRLINE PILOT/FIRST OFFICER emergency Hospitalists I10 Essential (primary) hypertension R51 Headache Z98.2 Presence of cerebrospinal fluid drainage device Office Visit 07/30/2018 [facility] E11.65 Type 2 diabetes 8:00a mireya Lane NP mellitus with Hospitalists hyperglycemia I10 Essential (primary) hypertension Z98.2 Presence of cerebrospinal fluid drainage device Office Visit 07/29/2018 [facility] E11.65 Type 2 diabetes 8:00a mireya Lane NP mellitus with Hospitalists hyperglycemia R51 Headache I10 Essential (primary) hypertension Z98.2 Presence of cerebrospinal fluid drainage device Office Visit 07/28/2018 8:00a Intensivists Artem Woods I16.1 Hypertensive MD emergency I10 Essential (primary) hypertension R51 Headache M54.2 Cervicalgia Z98.2 Presence of cerebrospinal fluid drainage device Office Visit 07/27/2018 7:59a Int[facility] Artem Woods I16.1 Hypertensive MD emergency I10 Essential (primary) hypertension M54.2 Cervicalgia Z98.2 Presence of cerebrospinal fluid drainage device Office Visit 07/26/2018 7:59a Intens[facility] Artem Woods, I16.1 Hypertensive MD emergency I10 Essential (primary) hypertension R51 Headache Z98.2 Presence of cerebrospinal fluid drainage device Office Visit 07/26/2018 [facility] Treybren Goldman I16.1 Hypertensive 7:58a mireya Lane MD emergency Hospitalists I10 Essential (primary) hypertension R51 Headache Z98.2 Presence of cerebrospinal fluid drainage device Office Visit 07/25/2018 [facility] Trey Goldman I16.1 Hypertensive 7:58a Assmireya ramirez MD emergency Hospitalists I10 Essential (primary) hypertension R51 Headache Z98.2 Presence of cerebrospinal fluid drainage device Office Visit 07/24/2018 7:58a [facility] Mable Frias, I10 Essential ( primary) Assoc,pc N.P. hypertension Hospitalists I16.1 Hypertensive emergency R51 Headache R11.2 Nausea with vomiting, unspecified Z98.2 Presence of cerebrospinal fluid drainage device Office Visit 07/24/2018 Neurosurgery Dk Uribe, G91.2 (Idiopathic) 10:58a [facility] Emmanuel normal pressure hydrocephalus Office Visit 07/17/2018 [facility] Jeni Mchugh, N17.9 Acute kidney 8:11a mireya Lane M.D. 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 failure, Hospitalists unspecified E11.9 Type 2 diabetes mellitus without complications I10 Essential (primary) hypertension Office Visit 07/15/2018 [facility] Jeni Mchugh, N17.9 Acute kidney 8:10a mireya Lane M.D. 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 R40.4 Transient alteration of awareness R53.82 Chronic fatigue, unspecified R29.6 Repeated falls G91.0 Communicating hydrocephalus Office Visit 06/09/2018 Neurohospitalist Delmer Camejo R41.3 Other 9:45a [facility] Cholo amnesia R53.82 Chronic fatigue, unspecified M62.81 Muscle weakness (generalized) R40.4 Transient alteration of awareness R51 Headache R29.6 Repeated falls Office Visit 04/15/2018 [facility] Camejo M54.9 Dorsalgia, 3:15p Neurologic [place] unspecified [facility] G89.29 Other chronic pain G43.009 Migraine w/o aura, not intractable, w/o status migrainosus R41.3 Other amnesia R94.02 Abnormal brain scan Office Visit 03/04/2018 8:13a [facility] Anali M54.9 Dorsalgia, Assoc,mireya Espinal, unspecified Hospitalists AIRLINE PILOT/FIRST OFFICER G89.29 Other chronic pain M25.512 Pain in left shoulder M25.561 Pain in right knee Office Visit 02/28/2018 [facility] Trey Goldman M54.9 Dorsalgia, 8:08a Assoc,mireya Michel MD unspecified Hospitalists G89.29 Other chronic pain M25.512 Pain in left shoulder M25.561 Pain in right knee Office Visit 02/15/2018 [facility] Delmer G43.009 Migraine w/o 2:15p Irina aCmejo M.D. aura, not [facility] intractable, w/o status migrainosus R41.3 Other amnesia G91.0 Communicating hydrocephalus R40.4 Transient alteration of awareness R53.82 Chronic fatigue, unspecified Office Visit 11/05/2017 Sarah Miller G43.009 Migraine w/o aura, 2:00p Neurologic [place] Lim not intractable, [facility] w/o status migrainosus R40.4 Transient alteration of awareness Office Visit 10/30/2016 10:00a [facility] Radha Lim, R51 Headache [facility] R40.4 Transient alteration of awareness Office Visit 11/01/2015 3:15p [facility] Radha Lim, R51 Headache [facility] R40.4 Transient alteration of awareness G89.4 Chronic pain syndrome Office Visit 01/25/2015 3:00p [facility] Irina Lim, 784.0 Headache [facility] 780.02 Transient Alteration Of Awareness 088.81 Lyme Disease 780.93 Memory Loss Office Visit 04/27/2014 3:00p Jackson[facility] Miller 346.10 Migraine Common Neurologic [place] Lim W/O Intractable [facility] W/O Status Migrainosus 780.02 Transient Alteration Of Awareness 088.81 Lyme Disease Office Visit 12/13/2013 11:45a [facility] Radha Lim, 784.0 Headache [facility] Emmanuel 780.02 Transient Alteration Of Awareness Office Visit 07/29/2013 1:00p [facility] Irina Miller 338.4 Chronic Pain [facility] Lim M.D. Syndrome 784.0 Headache Office Visit 05/13/2013 1:00p [facility] Radha Lim, 784.0 Headache Services Of [facility] Claim Auditor Cholo 780.02 Transient Alteration Of Awareness Office Visit 03/28/2013 11:04a [facility] Peri Avendaño, 784.0 Headache Assoc, Hospitalists DSuhas 088.81 Lyme Disease 274.00 Gouty Arthropathy, Unspecified Office Visit 03/28/2013 1:55p [facility] Mallika Klein 088.81 Lyme Disease Infectious Diseases [place] Tsang Office Visit 03/26/2013 11:03a [facility] Oscar Nolasco 784.0 Headache Assoc,mireya Emmanuel Hospitalists 331.3 Hydrocephalus Communicating 681.11 Onychia & Paronychia Toe 079.99 Viral Infection Unspec Plan of Treatment Future Appointment(s):09/06/2018 11:50 am - Dk Uribe M.D. at [facility]09/06/2018 2:00 pm - Delmer Camejo M.D. at [facility]08/23/2018 - Dk Uribe M.D.Z48.89 Encounter for other specified surgical aftercareNew Xrays:CT Brain Wo, Ordered: ollow up:After diagnostic study
--- OUTSIDE RECORDS SUMMARY | 2018-09-03 14:23 | XMS REPORT ---
:1960 External Reference #:[id number] [facility] Address [address] [place] [address] [address] [place] [address] Phone [phone] Care Team Providers Name Role Phone Delmer Camejo M.D. Care Team Information Ductfixing Plumber Unavailable Sebastian Baugh M.D. Primary Care Physician Unavailable Payers Type Date Identification Numbers Payment Provider Subscriber Medicare Primary Policy Number: [id number] Medicare Jesse Julien JR PayID: [id number] [address] [place] [address] Medigap Part B Expires: 2018 Policy Number: Medicare Jesse Julien JR [id number] PayID: [id number] [address] [place] [address] Commercial Policy Number: [id number] [facility] Jesse Julien JR PayID: [id number] [address] [place] [address] Problems Date Description Provider Status Onset: 01/25/2015 [...] Delmer Camejo M.D. Active Onset: 04/15/2018 Backache Delemr Camejo M.D. Active Onset: 04/15/2018 Chronic pain [...] History Type Date Description Comments Marital Status Lives With Spouse Work Status Retired [employer] Hand Dominance Left-Handed ETOH Use Rarely consumes [...] three Z48.89 Dk 2017 s times a Rony, day as M.D. needed Ibuprofen 11/05/ Active [...] po 30 min Cowdery, 04/14/ prior to M.DMartha 2018 MRI may take 1 more tablet if still anxious Lyrica 07/29/ Hx Capsules 50mg 180ca 3 tabs by Radha Miller 2012 - ps mouth at [facility], 12/13/ bedtime as MJennifer 2013 directed Cymbalta / Hx Caps DR [...] Unknown Monohydrate 0000 - by mouth 06/24/ 12 2018 hours Vital Signs Date Vital Result Comment 08/09/2018 Height 72 inches 6'0" Weight 242.00 lb Heart Rate 76 /min BP Systolic Sitting 130 mmHg Lue lg cuff BP Diastolic Sitting 68 mmHg Lue lg cuff Body Temperature 97.6 F Pain Level 7 BMI (Body Mass Index) 32.8 kg/m2 07/23/2018 Height 72 inches 6'0" Weight 250.00 lb BP Systolic Sitting 160 mmHg BP Diastolic Sitting 100 mmHg Pain Level 10 BMI (Body Mass Index) 33.9 kg/m2 06/30/2018 Height 72 inches 6'0" Weight 250.00 [...] protein on serum electrophoresis. Test Performed by: [place] [address] 2 The oligoclonal band assay detected 3 [...] cerebrovascular, and paraneoplastic disorders. Test Performed by: [place] [id number] 3 Because ethnic data is not always [...] REFERENCE VALUE <1:80 (Negative) Test Performed by: [address] [address] 7 RESULT: No apparent monoclonal protein on serum electrophoresis. Test Performed by: [facility] [address] [place] [address] 8 Test Performed by: [address] [address] 9 FASTING 10 FASTING 11 Because ethnic [...] <145 Procedures Date CPT Code Description Status 07/26/2018 53084 Replacement Or Irrigation Ventrical Catheter Completed 07/13/2018 64962 Creation Of Shunt;Ventriculo-Peritoneal,-Pleural, Other Completed Terminus 07/13/2018 76055 Creation Of Shunt;Ventriculo-Peritoneal,-Pleural, Other Completed Terminus 06/14/2018 28463 EEG Recording Awake & Drowsy Completed 05/17/2013 05365 EEG Recording Awake & Drowsy Completed Encounters Type Date Location Provider CPT E/M Dx Office Visit 07/30/2018 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 Katty Jauregui 51738 E11.65 Assoc,pc Hospitalists SURVEY FIELD TECHNICIAN R51 I10 Z98.2 Office Visit 07/28/2018 8:00a [place] [address] I16.1 I10 R51 M54.2 Z98.2 Office Visit 07/27/2018 7:59a [place] [address] I16.1 I10 M54.2 Z98.2 Office Visit 07/26/2018 7:59[place] [address] I16.1 I10 R51 Z98.2 Office Visit 07/26/2018 7:58a [facility] Trey Goldman 85596 I16.1 Hospitalists MD Marilu I10 R51 Z98.2 Office Visit 07/25/2018 7:58a [facility] Trey Goldman 82107 I16.1 Hospitalists MD Marilu I10 R51 Z98.2 Office Visit 07/24/2018 10:58a Neurosurgery Services Dk Uribe M.D. 53391 G91.2 Of [facility] Office Visit 07/17/2018 8:11a [facility], Jeni Mchugh, 03519 N17.9 Hospitalists MJennifer E11.9 I10 D55.0 Office Visit 07/16/2018 8:10a [facility], Jeni Mchugh, 51156 N17.9 Hospitalists MJennifer E11.9 I10 Office Visit 07/15/2018 8:10a [facility], Jeni Mchugh, 44061 N17.9 Hospitalists MJennifer E11.9 I10 Office Visit 07/14/2018 8:09a [facility], Anali Nogueirafield [address] N17.9 Hospitalists SEDRICK Espinal D55.0 E87.5 Office Visit 07/13/2018 8:09a [place] [address] J96.02 I95.9 R41.82 Z98.2 Office Visit 06/30/2018 9:30a Neurosurgery Services Dk Uribe M.D. 29489 G91.2 Of [facility] Office Visit 06/25/2018 12:00p [facility] Delmer Camejo, 35647 R41.3 Services Of [facility] Cholo R40.4 R53.82 R29.6 G91.0 Office Visit 06/09/2018 9:45a [facility] Delmer Camejo, 52239 R41.3 M.D. R53.82 M62.81 R40.4 R51 R29.6 Office Visit 04/15/2018 3:15p [facility] Renzoarun Camejo, 27520 M54.9 Services Of [employer] Station Supervisor M.D. G89.29 G43.009 R41.3 R94.02 Office Visit 03/04/2018 8:13a [facility] Anali Rich 93106 M54.9 Hospitalists SEDRICK Espinal G89.29 M25.512 M25.561 Office Visit 02/28/2018 8:08a [facility] Trey Goldman 94603 M54.9 Hospitalists MD Marilu G89.29 M25.512 M25.561 Office Visit 02/15/2018 2:15p [facility] Delmer Camejo, 10470 G43.009 Services Of [employer] Supervisor M.D. R41.3 G91.0 R40.4 R53.82 Office Visit 11/05/2017 2:00p [facility] Radha Lim, 38341 G43.009 Services Of [employer] Supervisor M.D. R40.4 Office Visit 10/30/2016 10:00a [facility] Radha Lim, 91471 R51 Services Of [employer] Supervisor M.D. R40.4 Office Visit 11/01/2015 3:15p [facility] Radha Lim, 55382 R51 Services Of [employer] Supervisor M.D. R40.4 G89.4 Office Visit 01/25/2015 3:00p [facility] Radha Lim, 23831 784.0 Services Of [employer] Supervisor M.D. 780.02 088.81 780.93 Office Visit 04/27/2014 3:00p [facility] Radha Lim, 94551 346.10 Services Of [employer] Supervisor M.D. 780.02 088.81 Office Visit 12/13/2013 11:45a [facility] Radha Lim 06173 784.0 Services Of [employer] Supervisor M.D. 780.02 Office Visit 07/29/2013 1:00p [facility] Radha Lim, 61780 338.4 Services Of [facility] Cholo 784.0 Office Visit 05/13/2013 1:00p [facility] Radha Lim, 28343 784.0 Services Of [facility] Cholo 780.02 Office Visit 03/28/2013 11:04a [facility] Peri Avendaño, 26686 784.0 Hospitalists DMarthaOMartha 088.81 274.00 Office Visit 03/28/2013 1:55p [facility] Hai Klein 05452 088.81 Infectious Diseases [place] Tsang Office Visit 03/26/2013 11:03a [facility] Oscar Nolasco, 11480 784.0 Assoc, Yasmine Emmanuel 331.3 681.11 079.99 Plan of Care Future Appointment(s):09/06/2018 11:50 am - Dk Uribe M.D. at [facility]09/06/2018 2:00 pm - Delmer Camejo M.D. at [facility]08/09/2018 - Dk Uribe M.D.Z48.89 Encounter for other specified surgical aftercareNew Medication:Xanax 0.5 mgFollow up:4 weeks
[2018-09-03 14:34] LABS: ABS Basophils 0 10^3/ul (0-0.2); ABS Eosinophils 0 10^3/ul (0-0.6); ABS Lymphocytes 1.1 10^3/ul (1.0-4.8); ABS Monocytes 0.6 10^3/ul (0-0.8); ABS Neutrophils 4.2 10^3/ul (1.5-7.7); ABS Nucleated RBC 0 10^3/ul; Eosinophil % 0.6 %; Hematocrit 36 % (42-52); Hemoglobin 11.9 g/dl (14.0-18.0); Lymphocyte % 18.2 %; Mean Corpuscular HGB Conc 33 g/dl (31-36); Mean Corpuscular Hemoglobin 29 pg (27-31); Mean Corpuscular Volume 88 fL (80-94); Mean Platelet Volume 7.2 fL (7.4-10.4); Nucleated Red Blood Cells % 0; Platelet Count 271 10^3/ul (150-450); Red Blood Count 4.09 10^6/ul (4.00-5.40); Red Cell Distribution Width 15 % (10.5-15)
[2018-09-03 14:45] LABS: INR 0.94 (0.77-1.02)
[2018-09-03 15:01] LABS: Albumin 4.7 g/dL (3.2-5.2); Albumin/Globulin Ratio 1.7 (1-3); BUN/Creatinine Ratio 17.2 (8-20); Calcium 9.5 mg/dL (8.6-10.3); EGFR Non-African American 90.1 (>60); Globulin 2.8 g/dL (2-4); Potassium 4.6 mmol/L (3.5-5.0); Total Bilirubin 0.3 mg/dL (0.2-1.0); Total Protein 7.5 g/dL (6.4-8.9)
[2018-09-03] MEDS ORDERED: hydrALAZINE TAB* 25 MG ONE (15:01)
[2018-09-03 15:30] LABS: TSH (Thyroid Stimulating Horm) 0.57 mcIU/mL (0.34-5.60)
[2018-09-03] MEDS ORDERED: HYDROcodone/ACETAMIN 5-325 MG* 1 TAB PO ONE (16:23)
[2018-09-03] MEDS ORDERED: HYDROmorphone INJ1* 1 MG/ML SYRINGE IV SLOW PU ONE ×2 (18:29→21:06)
[2018-09-03] MEDS ORDERED: Dextrose 50% Syringe 50 ML* 25 GM/50 ML SYRINGE IV PUSH PRN (19:11)
[2018-09-03] MEDS: HYDROmorphone INJ1* 1 MG/ML SYRINGE IV SLOW PU PRN ×2 (19:39→22:17)
[2018-09-03] MEDS: Promethazine TAB* 25 MG PO PRN (19:46)
[2018-09-03] MEDS ORDERED: NS 0.9% 1000 ML* 1,000 ML IV SCH (20:00)
[2018-09-03] MEDS: levETIRAcetam 500 MG IVPREMIX* 500 MG/100 ML BAG IV SCH (21:24)
[2018-09-03] MEDS: Docusate CAP* 100 MG PO SCH (21:25)
[2018-09-03] MEDS: hydrALAZINE TAB* 100 MG ** ONE HUNDRED PO SCH (21:25)
[2018-09-03] MEDS: Carvedilol TAB* 25 MG PO SCH (21:25)
[2018-09-03] MEDS: Pregabalin CAP(*) 100 MG PO SCH (21:25)
[2018-09-03] MEDS: Insulin LISPRO* 1 UNITS UNIT SUBCUT SCH (21:47)
[2018-09-03] MEDS ORDERED: fentaNYL* 50 MCG/ML 2 ML VIAL (100 MCG VIAL) IV SLOW PU ONE (22:35)
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
[2018-09-03] MEDS: Ondansetron INJ* 2 MG/ML VIAL IV PRN (22:59)
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
[2018-09-04] MEDS: HYDROmorphone INJ1* 1 MG/ML SYRINGE IV SLOW PU PRN ×7 (00:21→22:40)
[2018-09-04] MEDS: traZODone TAB* 50 MG TAB PO PRN ×2 (01:15→20:42)
[2018-09-04] MEDS: Acetaminophen TAB* 325 MG PO PRN (01:15)
[2018-09-04] MEDS: Promethazine TAB* 25 MG PO PRN ×2 (01:23→11:29)
[2018-09-04] MEDS ORDERED: traZODone TAB* 50 MG TAB PO ONE ×2 (01:25→01:45)
[2018-09-04] MEDS: fentaNYL* 50 MCG/ML 2 ML VIAL (100 MCG VIAL) IV SLOW PU PRN ×4 (01:51→10:51)
[2018-09-04] MEDS: Levothyroxine TAB* 75 MCG TAB PO SCH (06:10)
[2018-09-04] MEDS: Ondansetron INJ* 2 MG/ML VIAL IV PRN ×2 (06:32→19:24)
[2018-09-04 06:35] LABS: ABS Basophils 0 10^3/ul (0-0.2); ABS Eosinophils 0 10^3/ul (0-0.6); ABS Lymphocytes 1.2 10^3/ul (1.0-4.8); ABS Monocytes 0.7 10^3/ul (0-0.8); ABS Neutrophils 3.9 10^3/ul (1.5-7.7); ABS Nucleated RBC 0 10^3/ul; Eosinophil % 0.8 %; Hematocrit 34 % (42-52); Hemoglobin 11.3 g/dl (14.0-18.0); Lymphocyte % 20.6 %; Mean Corpuscular HGB Conc 33 g/dl (31-36); Mean Corpuscular Hemoglobin 29 pg (27-31); Mean Corpuscular Volume 88 fL (80-94); Mean Platelet Volume 7.7 fL (7.4-10.4); Nucleated Red Blood Cells % 0.1; Platelet Count 237 10^3/ul (150-450); Red Cell Distribution Width 15 % (10.5-15); White Blood Count 5.9 10^3/ul (3.5-10.8)
[2018-09-04 06:50] LABS: BUN/Creatinine Ratio 15.5 (8-20); Calcium 8.9 mg/dL (8.6-10.3); EGFR Non-African American 93.9 (>60); Potassium 4.2 mmol/L (3.5-5.0)
[2018-09-04] MEDS ORDERED: Lisinopril TAB* 10 MG PO SCH (09:00)
[2018-09-04] MEDS: Insulin LISPRO* 1 UNITS UNIT SUBCUT SCH ×4 (09:59→21:04)
[2018-09-04] MEDS: amLODIPine TAB* 5 MG PO SCH (10:00)
[2018-09-04] MEDS: Pregabalin CAP(*) 100 MG PO SCH ×2 (10:01→20:42)
[2018-09-04] MEDS: Carvedilol TAB* 25 MG PO SCH ×2 (10:01→20:58)
[2018-09-04] MEDS: hydrALAZINE TAB* 100 MG ** ONE HUNDRED PO SCH ×3 (10:01→20:42)
[2018-09-04] MEDS: Isosorbide Mononitrate ER TAB* 30 MG PO SCH (10:01)
[2018-09-04] MEDS: DULoxetine DR CAP* 30 MG CAP.DR PO SCH (10:01)
[2018-09-04] MEDS: levETIRAcetam 500 MG IVPREMIX* 500 MG/100 ML BAG IV SCH ×2 (10:01→20:41)
[2018-09-04] MEDS: Docusate CAP* 100 MG PO SCH ×2 (10:01→20:41)
[2018-09-04] MEDS ORDERED: HYDROmorphone INJ* 1 MG/ML CARPUJECT SYRINGE IV SLOW PU PRN (11:06)
--- NOTE | 2018-09-04 11:17 | PN ---
Subjective Date of Service: 09/04/18 Interval History: Fentanyl 50mcg (got 5x so far) not touching his pain. Says dilaudid was decreasing from 9 to 6. He was recently tapered down from oxycodone ER 20mg q8 + oxycodone 10mg q4 ( total 120mg a day) to hydrocodone-acetaminophen 10mg q8 by his pain doctor Amanda Sanchez on Friday 08/31, three days prior to admission. Pain got much worse after this change. feels like stiff board hitting top of head down into neck. Nausea no vomiting. Occasional blurry right eye (was given 2 different pairs of glasses), for few months now. comes and goes. Uses cane/walker. Objective Active Medications: Acetaminophen (Tylenol Tab*) 650 mg PO Q4H PRN PRN Reason: FEVER/PAIN Last Admin: 09/04/18 01:15 Dose: 650 mg Amlodipine Besylate (Norvasc Tab*) 10 mg PO QAM [facility] Last Admin: 09/04/18 10:00 Dose: 10 mg Carvedilol (Coreg Tab*) 25 mg PO BID [facility] Last Admin: 09/04/18 10:01 Dose: 25 mg Dextrose (D50w Syringe 50 Ml*) 12.5 gm IV PUSH .FOR FS < 60 - SS PRN PRN Reason: FS < 60 Docusate Sodium (Colace Cap*) 100 mg PO BID [facility] Last Admin: 09/04/18 10:01 Dose: 100 mg Duloxetine HCl (Cymbalta Cap*) 30 mg PO QAM [facility] Last Admin: 09/04/18 10:01 Dose: 30 mg Hydralazine HCl (Apresoline Tab*) 100 mg PO TID [facility] Last Admin: 09/04/18 10:01 Dose: 100 mg Hydromorphone HCl (Dilaudid Inj*) 1 mg IV SLOW PU Q2H PRN PRN Reason: PAIN Levetiracetam (Keppra Iv Premix*) 500 mg in 100 mls @ 400 mls/hr IV Q12H [facility] Last Admin: 09/04/18 10:01 Dose: 400 mls/hr Sodium Chloride (Ns 0.9% 1000 Ml*) 1,000 mls @ 150 mls/hr IV .PER Rate [facility] Insulin Human Lispro (Humalog*) 0 units SUBCUT ACHS [facility]; Protocol Last Admin: 09/04/18 09:59 Dose: Not Given Isosorbide Mononitrate (Imdur Er Tab*) 30 mg PO QAM [facility] Last Admin: 09/04/18 10:01 Dose: 30 mg Levothyroxine Sodium (Synthroid Tab*) 175 mcg PO DAILY@0600 [facility] Last Admin: 09/04/18 06:10 Dose: 175 mcg Ondansetron HCl (Zofran Inj*) 4 mg IV Q6H PRN PRN Reason: NAUSEA Last Admin: 09/04/18 06:32 Dose: 4 mg Oxycodone HCl (Oxycontin(*)) 10 mg PO Q8HR MAYRA Oxycodone HCl (Roxycodone Tab*) 10 mg PO Q6H PRN PRN Reason: PAIN Pregabalin (Lyrica Cap(*)) 200 mg PO BID [facility] Last Admin: 09/04/18 10:01 Dose: 200 mg Promethazine HCl (Phenergan Tab*) 12.5 mg PO Q6H PRN PRN Reason: NAUSEA Last Admin: 09/04/18 01:23 Dose: 12.5 mg Trazodone HCl (Desyrel Tab*) 50 mg PO BEDTIME PRN PRN Reason: INSOMNIA Last Admin: 09/04/18 01:15 Dose: 50 mg Vital Signs - 8 hr 09/04/18 09/04/18 09/04/18 03:15 03:30 03:45 Temperature Pulse Rate 73 72 73 Respiratory 7 6 1 Rate Blood Pressure 71/43 74/44 76/45 (mmHg) O2 Sat by Pulse 92 93 93 Oximetry 09/04/18 09/04/18 09/04/18 04:00 04:01 04:15 Temperature Pulse Rate 74 73 73 Respiratory 6 1 3 Rate Blood Pressure 80/52 83/45 (mmHg) O2 Sat by Pulse 93 91 93 Oximetry 09/04/18 09/04/18 09/04/18 04:30 04:45 05:00 Temperature Pulse Rate 80 78 77 Respiratory 8 Rate Blood Pressure 89/52 94/55 106/54 (mmHg) O2 Sat by Pulse 95 95 95 Oximetry 09/04/18 09/04/18 09/04/18 05:01 05:15 05:30 Temperature Pulse Rate 80 82 84 Respiratory 0 Rate Blood Pressure 107/62 106/59 (mmHg) O2 Sat by Pulse 95 94 95 Oximetry 09/04/18 09/04/18 09/04/18 05:45 06:00 06:01 Temperature Pulse Rate 82 87 87 Respiratory 0 13 7 Rate Blood Pressure 117/61 136/78 (mmHg) O2 Sat by Pulse 94 94 94 Oximetry 09/04/18 09/04/18 09/04/18 06:11 06:15 06:23 Temperature 98.2 F Pulse Rate 90 Respiratory 16 13 Rate Blood Pressure 150/79 (mmHg) O2 Sat by Pulse 92 Oximetry 09/04/18 09/04/18 09/04/18 07:00 08:00 08:01 Temperature 99.2 F Pulse Rate 89 89 90 Respiratory 20 14 13 Rate Blood Pressure 119/77 125/69 (mmHg) O2 Sat by Pulse 91 91 92 Oximetry 09/04/18 09/04/18 09/04/18 08:09 09:00 09:01 Temperature Pulse Rate 92 89 Respiratory 13 12 5 Rate Blood Pressure 127/67 (mmHg) O2 Sat by Pulse 91 92 Oximetry 09/04/18 10:51 Temperature Pulse Rate Respiratory 12 Rate Blood Pressure (mmHg) O2 Sat by Pulse Oximetry Oxygen Devices in Use Now: None, CPAP Appearance: NAD Eyes: No Scleral Icterus, PERRLA Ears/Nose/Mouth/Throat: NL Teeth, Lips, Gums Neck: NL Appearance and Movements; NL JVP, Trachea Midline Respiratory: Symmetrical Chest Expansion and Respiratory Effort, Clear to Auscultation Cardiovascular: NL Sounds; No Murmurs; No JVD, RRR Abdominal: NL Sounds; No Tenderness; No Distention, - - central obesity. Extremities: No Edema Skin: No Rash or Ulcers Neurological: Alert and Oriented x 3, - - left foot drop and decreased sensation to light touch (chronic) Result Diagrams: 09/04/18 06:00 09/04/18 06:00 Additional Lab and Data: Laboratory Results - last 24 hr 09/03/18 09/03/18 09/03/18 14:21 14:22 14:22 WBC 6.0 RBC 4.09 Hgb 11.9 L Hct 36 L MCV 88 MCH 29 MCHC 33 RDW 15 Plt Count 271 MPV 7.2 L Neut % (Auto) 70.7 Lymph % (Auto) 18.2 [place] % (Auto) 9.9 Eos % (Auto) 0.6 Baso % (Auto) 0.6 Absolute Neuts (auto) 4.2 Absolute Lymphs (auto) 1.1 Absolute Monos (auto) 0.6 Absolute Eos (auto) 0 Absolute Basos (auto) 0 Absolute Nucleated RBC 0 Nucleated RBC % 0 INR (Anticoag Therapy) 0.94 D-Dimer, Quantitative < 200 Sodium Potassium Chloride Carbon Dioxide Anion Gap BUN Creatinine Est GFR ( Amer) Est GFR (Non-Af Amer) BUN/Creatinine Ratio Glucose POC Glucose (mg/dL) Lactic Acid 1.2 Calcium Total Bilirubin AST ALT Alkaline Phosphatase Troponin I Total Protein Albumin Globulin Albumin/Globulin Ratio TSH 09/03/18 09/03/18 09/03/18 14:23 17:07 21:45 WBC RBC Hgb Hct MCV MCH MCHC RDW Plt Count MPV Neut % (Auto) Lymph % (Auto) [place] % (Auto) Eos % (Auto) Baso % (Auto) Absolute Neuts (auto) Absolute Lymphs (auto) Absolute Monos (auto) Absolute Eos (auto) Absolute Basos (auto) Absolute Nucleated RBC Nucleated RBC % INR (Anticoag Therapy) D-Dimer, Quantitative Sodium 138 Potassium 4.6 Chloride 103 Carbon Dioxide 28 Anion Gap 7 BUN 15 Creatinine 0.87 Est GFR ( Amer) 109.1 Est GFR (Non-Af Amer) 90.1 BUN/Creatinine Ratio 17.2 Glucose 162 H POC Glucose (mg/dL) 129 H Lactic Acid Calcium 9.5 Total Bilirubin 0.30 AST 10 L ALT 12 Alkaline Phosphatase 47 Troponin I 0.00 0.00 Total Protein 7.5 Albumin 4.7 Globulin 2.8 Albumin/Globulin Ratio 1.7 TSH 0.57 09/04/18 09/04/18 06:00 06:00 WBC 5.9 RBC 3.90 L Hgb 11.3 L Hct 34 L MCV 88 MCH 29 MCHC 33 RDW 15 Plt Count 237 MPV 7.7 Neut % (Auto) 66.7 Lymph % (Auto) 20.6 [place] % (Auto) 11.4 Eos % (Auto) 0.8 Baso % (Auto) 0.5 Absolute Neuts (auto) 3.9 Absolute Lymphs (auto) 1.2 Absolute Monos (auto) 0.7 Absolute Eos (auto) 0 Absolute Basos (auto) 0 Absolute Nucleated RBC 0 Nucleated RBC % 0.1 INR (Anticoag Therapy) D-Dimer, Quantitative Sodium 138 Potassium 4.2 Chloride 105 Carbon Dioxide 27 Anion Gap 6 BUN 13 Creatinine 0.84 Est GFR ( Amer) 113.6 Est GFR (Non-Af Amer) 93.9 BUN/Creatinine Ratio 15.5 Glucose 143 H POC Glucose (mg/dL) Lactic Acid Calcium 8.9 Total Bilirubin AST ALT Alkaline Phosphatase Troponin I Total Protein Albumin Globulin Albumin/Globulin Ratio TSH Assess/Plan/Problems-Billing Assessment: 58 yo male PMH NPH s/p VPshunt 07/13/18 complicated by b/l SDH needing proximal shunt revision and multiple adjustments; chronic pain, NIDM, HTN, MOLLY, Sz, Anxiety p/w worsened headache and chronic nausea in setting of large reduction 3 days prior of his total 120mg oxycodone daily to 30mg hydrocodone daily. CT H with possible acute on chronic worsening of SDH on left. Neurosurgery following. - Patient Problems (1) Acute subdural hematoma Current Visit: Yes Status: Acute Code(s): S06.5X9A - TRAUM SUBDR HEM W LOC OF UNSP DURATION, INIT SNOMED Code(s): 30521612 Comment: Appreciate Neurosurgery recs. Discussed case with Dr. Mcgill Repeat CTH noncontrast now and likely again tomorrow. s/p shunt change to 2.5 on admission head of bed below 30 degrees blood pressure control neuro checks q2h in ICU (2) Chronic subdural hematoma Current Visit: Yes Status: Acute Code(s): I62.03 - NONTRAUMATIC CHRONIC SUBDURAL HEMORRHAGE SNOMED Code(s): 51615191 Comment: plan as above (3) Headache Current Visit: No Status: Acute Code(s): R51 - HEADACHE SNOMED Code(s): 54064353 Comment: - pt preferes dilaudid to fentanyl. Will switch to dilaudid 1mg q2h for breakthrough but also restart oxycontin at 10mg q8 mayra and oxycodone 10mg q6 prn (total max 70), had recently been (change on 08/31) on oxycontin 20mg q8 mayra with oxycodone 10mg q4 (total max 120) but was reportedly having confusion. - continue lyrica. - s/p Dr. Mopurgo consult. (4) HTN (hypertension) Current Visit: No Status: Acute Code(s): I10 - ESSENTIAL (PRIMARY) HYPERTENSION SNOMED Code(s): 30340234 Comment: - try to control headache symptoms which was likely driving some of the exacerbation. - Continue Norvasc 10mg daily, Imdur 30mg daily, coreg 25mg BID, hydralazine 100mg TID - stop lisinopril 20mg daily (was told to stop this as an outpatient) (5) DM type 2 (diabetes mellitus, type 2) Current Visit: No Status: Acute Comment: - on metformin 1000mg BID and glipizide 10mg BID at home. - A1C was 7.8% on 03/04/18 - if eating(currently npo): carb consistent diet - Continue FS and lispro SSI ACHS. (6) G6PD deficiency Current Visit: No Status: Acute Code(s): D55.0 - ANEMIA DUE TO GLUCOSE-6- PHOSPHATE DEHYDROGENASE DEFICIENCY SNOMED Code(s): 380529199 Comment: noted. (7) Hypothyroid Current Visit: No Status: Acute Code(s): E03.9 - HYPOTHYROIDISM, UNSPECIFIED SNOMED Code(s): 93165888 Comment: - Continue synthroid 175mcg (8) Normal pressure hydrocephalus Current Visit: No Status: Acute Code(s): G91.2 - (IDIOPATHIC) NORMAL PRESSURE HYDROCEPHALUS SNOMED Code(s): 52922498 Comment: plan as above. (9) MOLLY on CPAP Current Visit: No Status: Acute Code(s): G47.33 - OBSTRUCTIVE SLEEP APNEA ( ADULT) (PEDIATRIC); Z99.89 - DEPENDENCE ON OTHER ENABLING MACHINES AND DEVICES SNOMED Code(s): 17359629 Comment: -Continue home CPAP (10) Status post ventriculo-peritoneal shunt placement Current Visit: No Status: Acute Comment: - s/p ventriculostomy revision with Dr. Uribe on 07/26 - Plan of care per nurosurgery. (11) DVT prophylaxis Current Visit: No Status: Acute Code(s): TFR5337 - SNOMED Code(s): 286101516 Comment: -Continue SCDs. no a/c given acute on chronic SDH (12) Full code status Current Visit: No Status: Acute Code(s): Z78.9 - OTHER SPECIFIED HEALTH STATUS SNOMED Code(s): 943850534
[2018-09-04] MEDS: oxyCODONE TAB* 5 MG TAB PO PRN ×2 (11:29→21:05)
[2018-09-04] MEDS: oxyCODONE SR TAB(*) 10 MG TAB.SR PO SCH ×2 (14:20→21:04)
[2018-09-04] MEDS: NS 0.9% 1000 ML* 1,000 ML IV SCH ×2 (14:24→21:25)
--- NOTE | 2018-09-04 16:09 | PN ---
Progress Note - Progress Note Date of Service: 09/04/18 SOAP: Subjective: []Patient was seen earlier in the ICU. No events ON. NPO. LERMA improved this am after dilaudid. Objective: []VSS, Afebrile Wound s,c,d AAOx3, JOSEPH, CN II-XII grossly intact Motor 4-5/5 except LLE 4-/5 with o/5 Lt foot DF, EHL (baseline per patient after hx of lumbar surgery) Sensory grossly intact to light touch, except decreased sensation LLE below inguinal area and loss of sensation in Lt Foot. (Baseline per patient after hx of lumbar surgery) Assessment: []58 yom Darrell SDH Acute on chronic sp VPS for NPH Plan: []Monitor VS, Neurochecks CT revealed mild improvement of SDH Will continue monitoring in ICU BP control Bed rest with HOB < 30 ' May repeat CT in Thursday if exam stable. Advance diet for now. Appreciate IM care. Jennifer Lutz MD
[2018-09-05] MEDS: HYDROmorphone INJ1* 1 MG/ML SYRINGE IV SLOW PU PRN ×11 (00:40→23:31)
[2018-09-05] MEDS: NS 0.9% 1000 ML* 1,000 ML IV SCH ×3 (04:04→17:01)
[2018-09-05] MEDS: Levothyroxine TAB* 75 MCG TAB PO SCH (06:10)
[2018-09-05] MEDS: oxyCODONE SR TAB(*) 10 MG TAB.SR PO SCH ×3 (06:11→21:41)
[2018-09-05] MEDS: DULoxetine DR CAP* 30 MG CAP.DR PO SCH (08:18)
[2018-09-05] MEDS: Docusate CAP* 100 MG PO SCH ×2 (08:18→21:41)
[2018-09-05] MEDS: Pregabalin CAP(*) 100 MG PO SCH ×2 (08:18→21:41)
[2018-09-05] MEDS: Isosorbide Mononitrate ER TAB* 30 MG PO SCH (08:18)
[2018-09-05] MEDS: Carvedilol TAB* 25 MG PO SCH ×2 (08:18→21:50)
[2018-09-05] MEDS: hydrALAZINE TAB* 100 MG ** ONE HUNDRED PO SCH ×3 (08:18→21:50)
[2018-09-05] MEDS: amLODIPine TAB* 5 MG PO SCH (08:18)
[2018-09-05] MEDS: levETIRAcetam 500 MG IVPREMIX* 500 MG/100 ML BAG IV SCH ×2 (08:19→21:41)
[2018-09-05] MEDS: Insulin LISPRO* 1 UNITS UNIT SUBCUT SCH ×4 (08:37→21:49)
[2018-09-05] MEDS: oxyCODONE TAB* 5 MG TAB PO PRN ×2 (09:54→18:11)
--- NOTE | 2018-09-05 09:55 | PN ---
Subjective Date of Service: 09/05/18 Interval History: frequent dilaudid (900, 600, 240, 1240, 2240) some nausea itching episode around 0200. no chest pain,abdominal pain, F/C eating well yesterday Objective Active Medications: Acetaminophen (Tylenol Tab*) 650 mg PO Q4H PRN PRN Reason: FEVER/PAIN Last Admin: 09/04/18 01:15 Dose: 650 mg Amlodipine Besylate (Norvasc Tab*) 10 mg PO QAM [facility] Last Admin: 09/05/18 08:18 Dose: 10 mg Carvedilol (Coreg Tab*) 25 mg PO BID [facility] Last Admin: 09/05/18 08:18 Dose: 25 mg Dextrose (D50w Syringe 50 Ml*) 12.5 gm IV PUSH .FOR FS < 60 - SS PRN PRN Reason: FS < 60 Docusate Sodium (Colace Cap*) 100 mg PO BID [facility] Last Admin: 09/05/18 08:18 Dose: 100 mg Duloxetine HCl (Cymbalta Cap*) 30 mg PO QAM [facility] Last Admin: 09/05/18 08:18 Dose: 30 mg Hydralazine HCl (Apresoline Tab*) 100 mg PO TID [facility] Last Admin: 09/05/18 08:18 Dose: 100 mg Hydromorphone HCl (Dilaudid Inj1s*) 1 mg IV SLOW PU Q2H PRN PRN Reason: PAIN Last Admin: 09/05/18 09:11 Dose: 1 mg Levetiracetam (Keppra Iv Premix*) 500 mg in 100 mls @ 400 mls/hr IV Q12H [facility] Last Admin: 09/05/18 08:19 Dose: 400 mls/hr Sodium Chloride (Ns 0.9% 1000 Ml*) 1,000 mls @ 150 mls/hr IV .PER Rate [facility] Last Admin: 09/05/18 04:04 Dose: 150 mls/hr Insulin Human Lispro (Humalog*) 0 units SUBCUT ACHS [facility]; Protocol Last Admin: 09/05/18 08:37 Dose: 1 unit Isosorbide Mononitrate (Imdur Er Tab*) 30 mg PO QAM [facility] Last Admin: 09/05/18 08:18 Dose: 30 mg Levothyroxine Sodium (Synthroid Tab*) 175 mcg PO DAILY@0600 [facility] Last Admin: 09/05/18 06:10 Dose: 175 mcg Ondansetron HCl (Zofran Inj*) 4 mg IV Q6H PRN PRN Reason: NAUSEA Last Admin: 09/04/18 19:24 Dose: 4 mg Oxycodone HCl (Oxycontin(*)) 10 mg PO Q8HR [facility] Last Admin: 09/05/18 06:11 Dose: 10 mg Oxycodone HCl (Roxycodone Tab*) 10 mg PO Q6H PRN PRN Reason: PAIN Last Admin: 09/04/18 21:05 Dose: 10 mg Pregabalin (Lyrica Cap(*)) 200 mg PO BID [facility] Last Admin: 09/05/18 08:18 Dose: 200 mg Promethazine HCl (Phenergan Tab*) 12.5 mg PO Q6H PRN PRN Reason: NAUSEA Last Admin: 09/04/18 11:29 Dose: 12.5 mg Trazodone HCl (Desyrel Tab*) 50 mg PO BEDTIME PRN PRN Reason: INSOMNIA Last Admin: 09/04/18 20:42 Dose: 50 mg Vital Signs - 8 hr 09/05/18 09/05/18 09/05/18 02:00 02:01 02:39 Temperature Pulse Rate 75 75 Respiratory 7 9 15 Rate Blood Pressure 111/59 (mmHg) O2 Sat by Pulse 92 92 Oximetry 09/05/18 09/05/18 09/05/18 03:00 03:01 03:57 Temperature 97.4 F Pulse Rate 82 86 Respiratory 14 12 Rate Blood Pressure 150/84 (mmHg) O2 Sat by Pulse 92 Oximetry 09/05/18 09/05/18 09/05/18 04:00 04:01 05:00 Temperature Pulse Rate 78 79 83 Respiratory 7 10 16 Rate Blood Pressure 121/48 106/58 (mmHg) O2 Sat by Pulse 93 92 95 Oximetry 09/05/18 09/05/18 09/05/18 05:01 06:00 06:01 Temperature Pulse Rate 82 75 75 Respiratory 16 6 4 Rate Blood Pressure 106/56 (mmHg) O2 Sat by Pulse 95 91 94 Oximetry 09/05/18 09/05/18 09/05/18 06:11 07:00 07:01 Temperature Pulse Rate 76 76 Respiratory 9 3 3 Rate Blood Pressure 122/64 (mmHg) O2 Sat by Pulse 95 93 Oximetry 09/05/18 09/05/18 09/05/18 07:43 08:00 09:11 Temperature 97.9 F Pulse Rate Respiratory 6 14 Rate Blood Pressure (mmHg) O2 Sat by Pulse Oximetry Oxygen Devices in Use Now: None, CPAP Appearance: NAD Eyes: No Scleral Icterus Ears/Nose/Mouth/Throat: NL Teeth, Lips, Gums Neck: NL Appearance and Movements; NL JVP Respiratory: Symmetrical Chest Expansion and Respiratory Effort, Clear to Auscultation Cardiovascular: NL Sounds; No Murmurs; No JVD, RRR Abdominal: NL Sounds; No Tenderness; No Distention, No Hepatosplenomegaly Extremities: No Edema Skin: No Rash or Ulcers Neurological: Alert and Oriented x 3, - - left foot drop and decreased light touch (Chronic) UE strength intact. CN intact Nutrition: Taking PO's Result Diagrams: 09/04/18 06:00 09/04/18 06:00 Additional Lab and Data: Laboratory Results - last 24 hr 09/04/18 09/04/18 09/04/18 13:14 17:59 20:58 POC Glucose (mg/dL) 124 H 230 H 147 H Assess/Plan/Problems-Billing Assessment: 58 yo male PMH NPH s/p VPshunt 07/13/18 complicated by b/l SDH needing proximal shunt revision and multiple adjustments; chronic pain, NIDM, HTN, MOLLY, Sz, Anxiety p/w worsened headache and chronic nausea in setting of large reduction 3 days prior of his total 120mg oxycodone daily to 30mg hydrocodone daily. CT H with possible acute on chronic worsening of SDH on left. Neurosurgery following. Repeat CT slightly better. - Patient Problems (1) Acute subdural hematoma Current Visit: Yes Status: Acute Code(s): S06.5X9A - TRAUM SUBDR HEM W LOC OF UNSP DURATION, INIT SNOMED Code(s): 15310551 Comment: Appreciate Neurosurgery recs. Discussed case with Dr. Mcgill Repeat CTH thursday. 09/04 showed slight improvement/stable s/p shunt change to 2.5 on admission head of bed below 30 degrees with bed rest but can go to bathroom blood pressure control neuro checks q2h in ICU (2) Chronic subdural hematoma Current Visit: Yes Status: Acute Code(s): I62.03 - NONTRAUMATIC CHRONIC SUBDURAL HEMORRHAGE SNOMED Code(s): 96930429 Comment: plan as above (3) Headache Current Visit: No Status: Acute Code(s): R51 - HEADACHE SNOMED Code(s): 57200941 Comment: - continue dilaudid 1mg q2h for breakthrough - continue oxycontin at 10mg q8 anika and oxycodone 10mg q6 prn (total max 70), had recently been (change on 08/31) on oxycontin 20mg q8 anika with oxycodone 10mg q4 (total max 120) but was reportedly having confusion. - continue lyrica. - s/p Dr. Davis consult last admission. (4) HTN (hypertension) Current Visit: No Status: Acute Code(s): I10 - ESSENTIAL (PRIMARY) HYPERTENSION SNOMED Code(s): 11647878 Comment: SBP 110-120s - try to control headache symptoms which was likely driving some of the exacerbation. - Continue Norvasc 10mg daily, Imdur 30mg daily, coreg 25mg BID, hydralazine 100mg TID - stop lisinopril 20mg daily (was told to stop this as an outpatient) (5) DM type 2 (diabetes mellitus, type 2) Current Visit: No Status: Acute Comment: - on metformin 1000mg BID and glipizide 10mg BID at home. - A1C was 7.8% on 03/04/18 - if eating(currently npo): carb consistent diet - Continue FS and lispro SSI ACHS. (6) G6PD deficiency Current Visit: No Status: Acute Code(s): D55.0 - ANEMIA DUE TO GLUCOSE-6- PHOSPHATE DEHYDROGENASE DEFICIENCY SNOMED Code(s): 114727787 Comment: noted. (7) Hypothyroid Current Visit: No Status: Acute Code(s): E03.9 - HYPOTHYROIDISM, UNSPECIFIED SNOMED Code(s): 73672741 Comment: - Continue synthroid 175mcg (8) Normal pressure hydrocephalus Current Visit: No Status: Acute Code(s): G91.2 - (IDIOPATHIC) NORMAL PRESSURE HYDROCEPHALUS SNOMED Code(s): 85349059 Comment: plan as above. (9) MOLLY on CPAP Current Visit: No Status: Acute Code(s): G47.33 - OBSTRUCTIVE SLEEP APNEA ( ADULT) (PEDIATRIC); Z99.89 - DEPENDENCE ON OTHER ENABLING MACHINES AND DEVICES SNOMED Code(s): 70336704 Comment: -Continue home CPAP (10) Status post ventriculo-peritoneal shunt placement Current Visit: No Status: Acute Comment: - s/p ventriculostomy revision with Dr. Uribe on 07/26 - Plan of care per nurosurgery. (11) DVT prophylaxis Current Visit: No Status: Acute Code(s): BGF3516 - SNOMED Code(s): 559982472 Comment: -Continue SCDs. no a/c given acute on chronic SDH (12) Full code status Current Visit: No Status: Acute Code(s): Z78.9 - OTHER SPECIFIED HEALTH STATUS SNOMED Code(s): 755197467 Status and Disposition: medicine inpatient. ICU
--- NOTE | 2018-09-05 12:47 | PN ---
Progress Note - Progress Note Date of Service: 09/05/18 SOAP: Subjective: [] No events ON. NPO. One episode of LERMA this am, improved after dilaudid.Tolerates PO well, Voids. Bathroom privileges. Objective: [] VSS, Afebrile Wound s,c,d, Valve pumps and refills well. AAOx3, JOSEPH, CN II-XII grossly intact Motor 4-5/5 except LLE 4-/5 with o/5 Lt foot DF, EHL (baseline per patient after hx of lumbar surgery). No pronator drift. Sensory grossly intact to light touch, except decreased sensation LLE below inguinal area and loss of sensation in Lt Foot. (Baseline per patient after hx of lumbar surgery) Assessment: []58 yom Darrell SDH Acute on chronic sp VPS for NPH, sp valve settings revision. Plan: [] Monitor VS, Neurochecks CT in am. Will continue monitoring in ICU BP control Bed rest with HOB < 30 ' Diet as tolerated. Appreciate IM care. Jennifer Lutz MD
[2018-09-05] MEDS: Acetaminophen TAB* 325 MG PO PRN (15:30)
[2018-09-05] MEDS ORDERED: diPHENhydraMINE IV* 25 MG in NS 0.9% 50 ML* 50 ML IVPB ONE (18:40)
[2018-09-05] MEDS ORDERED: diPHENhydraMINE IV* 50 MG/ML 1 ml VIAL (BENADRYL) IV ONE (19:00)
[2018-09-06] MEDS ORDERED: diPHENhydraMINE PO* 50 MG PO ONE (01:30)
[2018-09-06] MEDS: oxyCODONE TAB* 5 MG TAB PO PRN ×2 (01:52→15:59)
[2018-09-06] MEDS: HYDROmorphone INJ* 0.5 MG/0.5 ML SYRINGE ONE ×2 (02:24→03:04)
[2018-09-06] MEDS: HYDROmorphone INJ* 0.5 MG/0.5 ML SYRINGE IV SLOW PU PRN ×9 (02:24→22:37)
[2018-09-06] MEDS: traZODone TAB* 50 MG TAB PO PRN ×2 (02:55→21:25)
[2018-09-06] MEDS: Levothyroxine TAB* 75 MCG TAB PO SCH (06:02)
[2018-09-06] MEDS: oxyCODONE SR TAB(*) 10 MG TAB.SR PO SCH ×3 (06:03→21:25)
[2018-09-06] MEDS ORDERED: diPHENhydraMINE IV* 50 MG in NS 0.9% 50 ML* 50 ML IVPB PRN (08:20)
[2018-09-06] MEDS: Insulin LISPRO* 1 UNITS UNIT SUBCUT SCH ×4 (08:39→20:36)
[2018-09-06] MEDS: Pregabalin CAP(*) 100 MG PO SCH ×2 (08:46→20:36)
[2018-09-06] MEDS: Docusate CAP* 100 MG PO SCH ×2 (08:46→20:37)
[2018-09-06] MEDS: Carvedilol TAB* 25 MG PO SCH ×2 (08:46→20:36)
[2018-09-06] MEDS: DULoxetine DR CAP* 30 MG CAP.DR PO SCH (08:46)
[2018-09-06] MEDS: Isosorbide Mononitrate ER TAB* 30 MG PO SCH (08:47)
[2018-09-06] MEDS: amLODIPine TAB* 5 MG PO SCH (08:47)
[2018-09-06] MEDS: hydrALAZINE TAB* 100 MG ** ONE HUNDRED PO SCH ×3 (08:47→20:36)
[2018-09-06] MEDS: Acetaminophen TAB* 325 MG PO PRN ×2 (09:38→15:58)
[2018-09-06] MEDS: diPHENhydraMINE PO* 50 MG PO PRN ×2 (09:38→15:59)
[2018-09-06] MEDS: levETIRAcetam 500 MG IVPREMIX* 500 MG/100 ML BAG IV SCH ×2 (10:15→20:19)
[2018-09-06] MEDS: Ondansetron INJ* 2 MG/ML VIAL IV PRN (15:56)
--- NOTE | 2018-09-06 19:33 | PN ---
Subjective Date of Service: 09/06/18 Interval History: Pt seen and examined. Meds and labs reviewed. CC: Swelling and pruritus around the eye ROS: Denied LERMA/dizziness, F/C, N/V, CP, SOB, increased cough, sputum production , abd pain, diarrhea, constipation, dysuria, myalgias, arthralgias, throat pain , and new skin lesions. The rest of the 14 point ROS are unremarkable. PHYSICAL EXAM: GEN APPEARANCE: Awake, not in acute distress HEENT: NC/AT, PERRLA, moist oral mucosa, (-) throat erythema NECK: Soft, supple, (-) cervical LAD, (-)JVD HEART: S1S2 WNL, RRR, No MRG CHEST: CTA, BL, GAE, No W/R/R ABD: Soft, ND/NT, NABS 4x Q EXT: No C/C/E SKIN: Warm to touch PSYCH: No active psychosis, hallucinations, depression, SI/HI Objective Active Medications: Acetaminophen (Tylenol Tab*) 650 mg PO Q4H PRN PRN Reason: FEVER/PAIN Last Admin: 09/06/18 15:58 Dose: 650 mg Amlodipine Besylate (Norvasc Tab*) 10 mg PO QAM [facility] Last Admin: 09/06/18 08:47 Dose: 10 mg Carvedilol (Coreg Tab*) 25 mg PO BID [facility] Last Admin: 09/06/18 08:46 Dose: 25 mg Dextrose (D50w Syringe 50 Ml*) 12.5 gm IV PUSH .FOR FS < 60 - SS PRN PRN Reason: FS < 60 Diphenhydramine HCl (Benadryl Po*) 50 mg PO Q6H PRN PRN Reason: Pruritus Last Admin: 09/06/18 15:59 Dose: 50 mg Docusate Sodium (Colace Cap*) 100 mg PO BID [facility] Last Admin: 09/06/18 08:46 Dose: 100 mg Duloxetine HCl (Cymbalta Cap*) 30 mg PO QAM [facility] Last Admin: 09/06/18 08:46 Dose: 30 mg Hydralazine HCl (Apresoline Tab*) 100 mg PO TID [facility] Last Admin: 09/06/18 15:58 Dose: 100 mg Hydromorphone HCl (Dilaudid Inj*) 1 mg IV SLOW PU Q2H PRN PRN Reason: PAIN Last Admin: 09/06/18 18:34 Dose: 1 mg Levetiracetam (Keppra Iv Premix*) 500 mg in 100 mls @ 400 mls/hr IV Q12H [facility] Last Admin: 09/06/18 10:15 Dose: Not Given Insulin Human Lispro (Humalog*) 0 units SUBCUT ACHS [facility]; Protocol Last Admin: 09/06/18 18:58 Dose: Not Given Isosorbide Mononitrate (Imdur Er Tab*) 30 mg PO QAM [facility] Last Admin: 09/06/18 08:47 Dose: 30 mg Levothyroxine Sodium (Synthroid Tab*) 175 mcg PO DAILY@0600 [facility] Last Admin: 09/06/18 06:02 Dose: 175 mcg Ondansetron HCl (Zofran Inj*) 4 mg IV Q6H PRN PRN Reason: NAUSEA Last Admin: 09/06/18 15:56 Dose: 4 mg Oxycodone HCl (Oxycontin(*)) 10 mg PO Q8HR [facility] Last Admin: 09/06/18 15:59 Dose: 10 mg Oxycodone HCl (Roxycodone Tab*) 10 mg PO Q6H PRN PRN Reason: PAIN Last Admin: 09/06/18 15:59 Dose: 10 mg Pregabalin (Lyrica Cap(*)) 200 mg PO BID [facility] Last Admin: 09/06/18 08:46 Dose: 200 mg Promethazine HCl (Phenergan Tab*) 12.5 mg PO Q6H PRN PRN Reason: NAUSEA Last Admin: 09/04/18 11:29 Dose: 12.5 mg Trazodone HCl (Desyrel Tab*) 50 mg PO BEDTIME PRN PRN Reason: INSOMNIA Last Admin: 09/06/18 02:55 Dose: 50 mg Vital Signs - 8 hr 09/06/18 09/06/18 09/06/18 11:36 12:00 12:01 Temperature 98.2 F Pulse Rate 75 77 Respiratory 14 19 Rate Blood Pressure 130/73 (mmHg) O2 Sat by Pulse 91 93 Oximetry 09/06/18 09/06/18 09/06/18 12:14 13:00 13:01 Temperature Pulse Rate 76 73 Respiratory 13 15 12 Rate Blood Pressure 132/66 (mmHg) O2 Sat by Pulse 92 93 Oximetry 09/06/18 09/06/18 09/06/18 14:00 14:04 14:27 Temperature Pulse Rate Respiratory 11 11 19 Rate Blood Pressure (mmHg) O2 Sat by Pulse Oximetry 09/06/18 09/06/18 09/06/18 14:29 15:00 15:01 Temperature Pulse Rate 76 77 74 Respiratory 13 18 17 Rate Blood Pressure 125/73 130/74 (mmHg) O2 Sat by Pulse 93 90 91 Oximetry 09/06/18 09/06/18 09/06/18 15:09 15:59 16:00 Temperature 98.6 F Pulse Rate 75 Respiratory 7 12 10 Rate Blood Pressure 126/69 (mmHg) O2 Sat by Pulse 92 Oximetry 09/06/18 09/06/18 09/06/18 16:01 17:00 17:01 Temperature Pulse Rate 74 74 74 Respiratory 24 14 15 Rate Blood Pressure 133/77 (mmHg) O2 Sat by Pulse 92 94 93 Oximetry 09/06/18 09/06/18 09/06/18 18:00 18:01 18:34 Temperature Pulse Rate 78 79 Respiratory 17 16 23 Rate Blood Pressure 132/82 (mmHg) O2 Sat by Pulse 92 93 Oximetry 09/06/18 09/06/18 09/06/18 19:00 19:01 19:21 Temperature 97.6 F Pulse Rate 83 79 Respiratory 17 15 Rate Blood Pressure 141/76 (mmHg) O2 Sat by Pulse 92 93 Oximetry Oxygen Devices in Use Now: None, Nasal Cannula, CPAP Result Diagrams: 09/04/18 06:00 09/04/18 06:00 Additional Lab and Data: Laboratory Results - last 24 hr 09/04/18 09/04/18 09/04/18 13:14 17:59 20:58 POC Glucose (mg/dL) 124 H 230 H 147 H Assess/Plan/Problems-Billing Assessment: 58 yo male PMH NPH s/p VPshunt 07/13/18 complicated by b/l SDH needing proximal shunt revision and multiple adjustments; chronic pain, NIDM, HTN, MOLLY, Sz, Anxiety p/w worsened headache and chronic nausea in setting of large reduction 3 days prior of his total 120mg oxycodone daily to 30mg hydrocodone daily. CT H with possible acute on chronic worsening of SDH on left. Neurosurgery following. Repeat CT slightly better. - Patient Problems (1) Acute subdural hematoma Current Visit: Yes Status: Acute Code(s): S06.5X9A - TRAUM SUBDR HEM W LOC OF UNSP DURATION, INIT SNOMED Code(s): 94944375 Comment: -Repeat CT of head today ---stable; will await any further input from NeuroSx s/p shunt change to 2.5 on admission head of bed below 30 degrees with bed rest but can go to bathroom blood pressure control neuro checks q2h in ICU (2) Periorbital edema Current Visit: Yes Status: Acute Code(s): R60.0 - LOCALIZED EDEMA SNOMED Code(s): 24791846 Comment: -Most likely due to dependent pooling post-op -Given erythema and pruritus, NeuroSx held Keppra today for seizure prophylaxis due to possibility of hypersensitivity until pt reassessed by Sx -Given PRN Benadryl (3) Chronic subdural hematoma Current Visit: Yes Status: Acute Code(s): I62.03 - NONTRAUMATIC CHRONIC SUBDURAL HEMORRHAGE SNOMED Code(s): 57872750 Comment: plan as above (4) Headache Current Visit: No Status: Acute Code(s): R51 - HEADACHE SNOMED Code(s): 88840489 Comment: - continue dilaudid 1mg q2h for breakthrough - continue oxycontin at 10mg q8 anika and oxycodone 10mg q6 prn (total max 70), had recently been (change on 08/31) on oxycontin 20mg q8 anika with oxycodone 10mg q4 (total max 120) but was reportedly having confusion. - continue lyrica. - s/p Dr. Davis consult last admission. (5) HTN (hypertension) Current Visit: No Status: Acute Code(s): I10 - ESSENTIAL (PRIMARY) HYPERTENSION SNOMED Code(s): 38517448 Comment: SBP 110-120s - try to control headache symptoms which was likely driving some of the exacerbation. - Continue Norvasc 10mg daily, Imdur 30mg daily, coreg 25mg BID, hydralazine 100mg TID - stop lisinopril 20mg daily (was told to stop this as an outpatient) (6) DM type 2 (diabetes mellitus, type 2) Current Visit: No Status: Acute Comment: - on metformin 1000mg BID and glipizide 10mg BID at home. - A1C was 7.8% on 03/04/18 - if eating(currently npo): carb consistent diet - Continue FS and lispro SSI ACHS. (7) G6PD deficiency Current Visit: No Status: Acute Code(s): D55.0 - ANEMIA DUE TO GLUCOSE-6- PHOSPHATE DEHYDROGENASE DEFICIENCY SNOMED Code(s): 013428839 Comment: noted. (8) Hypothyroid Current Visit: No Status: Acute Code(s): E03.9 - HYPOTHYROIDISM, UNSPECIFIED SNOMED Code(s): 63286667 Comment: - Continue synthroid 175mcg (9) Normal pressure hydrocephalus Current Visit: No Status: Acute Code(s): G91.2 - (IDIOPATHIC) NORMAL PRESSURE HYDROCEPHALUS SNOMED Code(s): 47001905 Comment: plan as above. (10) MOLLY on CPAP Current Visit: No Status: Acute Code(s): G47.33 - OBSTRUCTIVE SLEEP APNEA ( ADULT) (PEDIATRIC); Z99.89 - DEPENDENCE ON OTHER ENABLING MACHINES AND DEVICES SNOMED Code(s): 10259366 Comment: -Continue home CPAP (11) Status post ventriculo-peritoneal shunt placement Current Visit: No Status: Acute Comment: - s/p ventriculostomy revision with Dr. Uribe on 07/26 - Plan of care per nurosurgery. (12) DVT prophylaxis Current Visit: No Status: Acute Code(s): YCT7474 - SNOMED Code(s): 324955750 Comment: -Continue SCDs. no a/c given acute on chronic SDH Status and Disposition: -For possible Transfer to floors in AM---will touch base with NeuroSx
[2018-09-07] MEDS: diPHENhydraMINE PO* 50 MG PO PRN ×4 (00:59→21:33)
[2018-09-07] MEDS: HYDROmorphone INJ* 0.5 MG/0.5 ML SYRINGE IV SLOW PU PRN ×3 (00:59→05:36)
[2018-09-07] MEDS: oxyCODONE TAB* 5 MG TAB PO PRN ×3 (01:22→15:37)
[2018-09-07] MEDS: oxyCODONE SR TAB(*) 10 MG TAB.SR PO SCH ×3 (05:20→22:12)
[2018-09-07] MEDS: Levothyroxine TAB* 75 MCG TAB PO SCH (05:20)
[2018-09-07] MEDS ORDERED: HYDROmorphone INJ1* 1 MG/ML SYRINGE ONE (05:35)
[2018-09-07] MEDS: HYDROmorphone INJ1* 1 MG/ML SYRINGE IV SLOW PU PRN ×9 (05:36→23:34)
[2018-09-07 05:40] LABS: Hematocrit 33 % (42-52); Hemoglobin 10.8 g/dl (14.0-18.0); Mean Corpuscular HGB Conc 33 g/dl (31-36); Mean Corpuscular Hemoglobin 29 pg (27-31); Mean Corpuscular Volume 88 fL (80-94); Mean Platelet Volume 7.7 fL (7.4-10.4); Platelet Count 226 10^3/ul (150-450); Red Blood Count 3.72 10^6/ul (4.00-5.40); Red Cell Distribution Width 14 % (10.5-15); White Blood Count 5.4 10^3/ul (3.5-10.8)
[2018-09-07 05:57] LABS: Albumin 4.2 g/dL (3.2-5.2); Albumin/Globulin Ratio 1.6 (1-3); BUN/Creatinine Ratio 16.5 (8-20); Calcium 9.2 mg/dL (8.6-10.3); EGFR Non-African American 92.6 (>60); Globulin 2.6 g/dL (2-4); Magnesium 1.8 mg/dL (1.9-2.7); Phosphorus 4.2 mg/dL (2.5-5.0); Potassium 4.2 mmol/L (3.5-5.0); Total Bilirubin 0.3 mg/dL (0.2-1.0); Total Protein 6.8 g/dL (6.4-8.9)
[2018-09-07] MEDS: amLODIPine TAB* 5 MG PO SCH (08:45)
[2018-09-07] MEDS: Carvedilol TAB* 25 MG PO SCH ×2 (08:45→20:44)
[2018-09-07] MEDS: Pregabalin CAP(*) 100 MG PO SCH ×2 (08:45→20:44)
[2018-09-07] MEDS: DULoxetine DR CAP* 30 MG CAP.DR PO SCH (08:45)
[2018-09-07] MEDS: Isosorbide Mononitrate ER TAB* 30 MG PO SCH (08:45)
[2018-09-07] MEDS: hydrALAZINE TAB* 100 MG ** ONE HUNDRED PO SCH ×3 (08:45→20:44)
[2018-09-07] MEDS: Acetaminophen TAB* 325 MG PO PRN ×3 (08:46→20:42)
[2018-09-07] MEDS: Docusate CAP* 100 MG PO SCH ×2 (08:49→20:44)
[2018-09-07] MEDS ORDERED: Magnesium Sulfate 2 GM IV* 2 GM/50 ML BAG IVPB ONE (09:00)
[2018-09-07] MEDS: levETIRAcetam 500 MG IVPREMIX* 500 MG/100 ML BAG IV SCH ×2 (09:05→21:19)
[2018-09-07] MEDS: Insulin LISPRO* 1 UNITS UNIT SUBCUT SCH ×4 (09:12→21:32)
[2018-09-07] MEDS: HYDROcodone/ACETAMIN 5-325 MG* 1 TAB PO PRN (17:35)
--- NOTE | 2018-09-07 20:07 | PN ---
Subjective Date of Service: 09/07/18 Interval History: Pt seen and examined. Meds and labs reviewed. CC: Swelling of eye improved, however, still red ROS: Denied LERMA/dizziness, F/C, N/V, CP, SOB, increased cough, sputum production , abd pain, diarrhea, constipation, dysuria, myalgias, arthralgias, throat pain , and new skin lesions. The rest of the 14 point ROS are unremarkable. PHYSICAL EXAM: GEN APPEARANCE: Awake, not in acute distress HEENT: NC/AT, PERRLA, moist oral mucosa, (-) throat erythema, improvement of periorbital edema, erythematous NECK: Soft, supple, (-) cervical LAD, (-)JVD HEART: S1S2 WNL, RRR, No MRG CHEST: CTA, BL, GAE, No W/R/R ABD: Soft, ND/NT, NABS 4x Q EXT: No C/C/E SKIN: Warm to touch PSYCH: No active psychosis, hallucinations, depression, SI/HI Objective Active Medications: Acetaminophen (Tylenol Tab*) 650 mg PO Q4H PRN PRN Reason: FEVER/PAIN Last Admin: 09/07/18 15:37 Dose: 650 mg Hydrocodone Bitart/Acetaminophen ([place] 5-325 Tab*) 1 tab PO Q8H PRN PRN Reason: PAIN Last Admin: 09/07/18 17:35 Dose: 1 tab Amlodipine Besylate (Norvasc Tab*) 10 mg PO QAM [facility] Last Admin: 09/07/18 08:45 Dose: 10 mg Carvedilol (Coreg Tab*) 25 mg PO BID [facility] Last Admin: 09/07/18 08:45 Dose: 25 mg Dextrose (D50w Syringe 50 Ml*) 12.5 gm IV PUSH .FOR FS < 60 - SS PRN PRN Reason: FS < 60 Diphenhydramine HCl (Benadryl Po*) 50 mg PO Q6H PRN PRN Reason: Pruritus Last Admin: 09/07/18 15:37 Dose: 50 mg Docusate Sodium (Colace Cap*) 100 mg PO BID [facility] Last Admin: 09/07/18 08:49 Dose: Not Given Duloxetine HCl (Cymbalta Cap*) 30 mg PO QAM [facility] Last Admin: 09/07/18 08:45 Dose: 30 mg Hydralazine HCl (Apresoline Tab*) 100 mg PO TID [facility] Last Admin: 09/07/18 15:36 Dose: 100 mg Hydromorphone HCl (Dilaudid Inj1s*) 1 mg IV SLOW PU Q2H PRN PRN Reason: PAIN Last Admin: 09/07/18 19:21 Dose: 1 mg Levetiracetam (Keppra Iv Premix*) 500 mg in 100 mls @ 400 mls/hr IV Q12H [facility] Last Admin: 09/07/18 09:05 Dose: Not Given Insulin Human Lispro (Humalog*) 0 units SUBCUT [facility]; Protocol Last Admin: 09/07/18 18:21 Dose: 2 unit Isosorbide Mononitrate (Imdur Er Tab*) 30 mg PO QAM [facility] Last Admin: 09/07/18 08:45 Dose: 30 mg Levothyroxine Sodium (Synthroid Tab*) 175 mcg PO DAILY@0600 [facility] Last Admin: 09/07/18 05:20 Dose: 175 mcg Ondansetron HCl (Zofran Inj*) 4 mg IV Q6H PRN PRN Reason: NAUSEA Last Admin: 09/06/18 15:56 Dose: 4 mg Oxycodone HCl (Oxycontin(*)) 10 mg PO Q8HR [facility] Last Admin: 09/07/18 13:30 Dose: 10 mg Oxycodone HCl (Roxycodone Tab*) 10 mg PO Q6H PRN PRN Reason: PAIN Last Admin: 09/07/18 15:37 Dose: 10 mg Pregabalin (Lyrica Cap(*)) 200 mg PO BID [facility] Last Admin: 09/07/18 08:45 Dose: 200 mg Promethazine HCl (Phenergan Tab*) 12.5 mg PO Q6H PRN PRN Reason: NAUSEA Last Admin: 09/04/18 11:29 Dose: 12.5 mg Trazodone HCl (Desyrel Tab*) 50 mg PO BEDTIME PRN PRN Reason: INSOMNIA Last Admin: 09/06/18 21:25 Dose: 50 mg Vital Signs - 8 hr 09/07/18 09/07/18 09/07/18 13:00 13:01 13:30 Temperature Pulse Rate 80 80 Respiratory 18 21 17 Rate Blood Pressure 129/60 (mmHg) O2 Sat by Pulse 85 89 Oximetry 09/07/18 09/07/18 09/07/18 14:00 14:01 14:35 Temperature Pulse Rate 77 77 Respiratory 8 10 13 Rate Blood Pressure 120/53 (mmHg) O2 Sat by Pulse 93 93 Oximetry 09/07/18 09/07/18 09/07/18 15:00 15:01 15:30 Temperature 98.4 F Pulse Rate 80 80 Respiratory 17 11 Rate Blood Pressure 143/77 (mmHg) O2 Sat by Pulse 93 91 Oximetry 09/07/18 09/07/18 09/07/18 15:36 16:00 16:01 Temperature Pulse Rate 78 78 79 Respiratory 24 9 11 Rate Blood Pressure 121/62 121/63 (mmHg) O2 Sat by Pulse 93 92 91 Oximetry 09/07/18 09/07/18 09/07/18 16:44 17:00 17:01 Temperature Pulse Rate 78 84 Respiratory 12 17 17 Rate Blood Pressure 135/72 (mmHg) O2 Sat by Pulse 89 88 Oximetry 09/07/18 09/07/18 09/07/18 18:00 18:01 19:16 Temperature 98.5 F Pulse Rate 83 94 Respiratory 18 25 Rate Blood Pressure 129/69 (mmHg) O2 Sat by Pulse 90 91 Oximetry 09/07/18 19:21 Temperature Pulse Rate Respiratory 17 Rate Blood Pressure (mmHg) O2 Sat by Pulse Oximetry Oxygen Devices in Use Now: None Result Diagrams: 09/07/18 05:24 09/07/18 05:24 Additional Lab and Data: Laboratory Results - last 24 hr 09/04/18 09/04/18 09/04/18 13:14 17:59 20:58 POC Glucose (mg/dL) 124 H 230 H 147 H Assess/Plan/Problems-Billing Assessment: 58 yo male PMH NPH s/p VPshunt 07/13/18 complicated by b/l SDH needing proximal shunt revision and multiple adjustments; chronic pain, NIDM, HTN, MOLLY, Sz, Anxiety p/w worsened headache and chronic nausea in setting of large reduction 3 days prior of his total 120mg oxycodone daily to 30mg hydrocodone daily. CT H with possible acute on chronic worsening of SDH on left. Neurosurgery following. Repeat CT slightly better. - Patient Problems (1) Acute subdural hematoma Current Visit: Yes Status: Acute Code(s): S06.5X9A - TRAUM SUBDR HEM W LOC OF UNSP DURATION, INIT SNOMED Code(s): 18334311 Comment: -NeuroVS stable -Repeat CT of head yesterday ---stable; will await any further input from NeuroSx s/p shunt change to 2.5 on admission head of bed below 30 degrees with bed rest but can go to bathroom blood pressure control -Will await re-eval by NeuroSx (2) Periorbital edema Current Visit: Yes Status: Acute Code(s): R60.0 - LOCALIZED EDEMA SNOMED Code(s): 46590898 Comment: -Most likely due to dependent pooling post-op -Given erythema and pruritus, NeuroSx held Keppra yesterday for seizure prophylaxis due to possibility of hypersensitivity until pt reassessed by Sx -Given PRN Benadryl (3) Chronic subdural hematoma Current Visit: Yes Status: Acute Code(s): I62.03 - NONTRAUMATIC CHRONIC SUBDURAL HEMORRHAGE SNOMED Code(s): 86286550 Comment: plan as above (4) Headache Current Visit: No Status: Acute Code(s): R51 - HEADACHE SNOMED Code(s): 33140937 Comment: - continue dilaudid 1mg q2h for breakthrough - continue oxycontin at 10mg q8 anika and oxycodone 10mg q6 prn (total max 70), had recently been (change on 08/31) on oxycontin 20mg q8 anika with oxycodone 10mg q4 (total max 120) but was reportedly having confusion. - continue lyrica. - s/p Dr. Davis consult last admission. (5) HTN (hypertension) Current Visit: No Status: Acute Code(s): I10 - ESSENTIAL (PRIMARY) HYPERTENSION SNOMED Code(s): 07697182 Comment: SBP 110-120s - try to control headache symptoms which was likely driving some of the exacerbation. - Continue Norvasc 10mg daily, Imdur 30mg daily, coreg 25mg BID, hydralazine 100mg TID - stop lisinopril 20mg daily (was told to stop this as an outpatient) (6) DM type 2 (diabetes mellitus, type 2) Current Visit: No Status: Acute Comment: - on metformin 1000mg BID and glipizide 10mg BID at home. - A1C was 7.8% on 03/04/18 - if eating(currently npo): carb consistent diet - Continue FS and lispro SSI ACHS. (7) G6PD deficiency Current Visit: No Status: Acute Code(s): D55.0 - ANEMIA DUE TO GLUCOSE-6- PHOSPHATE DEHYDROGENASE DEFICIENCY SNOMED Code(s): 194262652 Comment: noted. (8) Hypothyroid Current Visit: No Status: Acute Code(s): E03.9 - HYPOTHYROIDISM, UNSPECIFIED SNOMED Code(s): 39874079 Comment: - Continue synthroid 175mcg (9) Normal pressure hydrocephalus Current Visit: No Status: Acute Code(s): G91.2 - (IDIOPATHIC) NORMAL PRESSURE HYDROCEPHALUS SNOMED Code(s): 06390273 Comment: plan as above. (10) MOLLY on CPAP Current Visit: No Status: Acute Code(s): G47.33 - OBSTRUCTIVE SLEEP APNEA ( ADULT) (PEDIATRIC); Z99.89 - DEPENDENCE ON OTHER ENABLING MACHINES AND DEVICES SNOMED Code(s): 60882941 Comment: -Continue home CPAP (11) Status post ventriculo-peritoneal shunt placement Current Visit: No Status: Acute Comment: - s/p ventriculostomy revision with Dr. Uribe on 07/26 - Plan of care per nurosurgery. (12) DVT prophylaxis Current Visit: No Status: Acute Code(s): VEV6116 - SNOMED Code(s): 786859501 Comment: -Continue SCDs. no a/c given acute on chronic SDH Status and Disposition: -For possible Transfer to floors in AM---will touch base with NeuroSx
--- NOTE | 2018-09-07 20:43 | PN ---
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 Reports right temporal region headache this evening, requests dilaudid because it has helped in the past. Denies pain elsewhere; at baseline has neck and back pain but not experiencing this pain currently. Currently taking Oxycodone, Oxycontin, [place] and tylenol for pain. Heat pack applied to right side head with some relief. Facial swelling improved per patient. Denies nausea, vomiting, dizziness, vision change. Was able to get up to chair today. ] Objective: [ Vital Signs: Temp Pulse Resp BP Pulse Ox 98.5 F 94 17 129/69 91 09/07/18 19:16 09/07/18 18:01 09/07/18 19:21 09/07/18 18:00 09/07/18 18:01 General: Alert, NAD, laying in bed comfortably. Neuro: Motor and sensory intact. PERRL, EOMI. No pronator drift. Shunt reservoir refills when compressed. 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 CT brain obtained on 09/06 stable. ] Plan: [1. Likely transfer to floor tomorrow, will discuss with Dr. Lutz. 2. Continue home pain regimen. ]
[2018-09-07] MEDS: traZODone TAB* 50 MG TAB PO PRN (22:12)
[2018-09-08] MEDS: HYDROmorphone INJ1* 1 MG/ML SYRINGE IV SLOW PU PRN ×7 (02:34→16:27)
[2018-09-08 05:23] LABS: ABS Basophils 0 10^3/ul (0-0.2); ABS Eosinophils 0.2 10^3/ul (0-0.6); ABS Lymphocytes 0.8 10^3/ul (1.0-4.8); ABS Monocytes 0.7 10^3/ul (0-0.8); ABS Nucleated RBC 0 10^3/ul; Eosinophil % 4.3 %; Hematocrit 33 % (42-52); Hemoglobin 10.8 g/dl (14.0-18.0); Lymphocyte % 16.2 %; Mean Corpuscular HGB Conc 33 g/dl (31-36); Mean Corpuscular Hemoglobin 29 pg (27-31); Mean Corpuscular Volume 87 fL (80-94); Mean Platelet Volume 7.5 fL (7.4-10.4); Nucleated Red Blood Cells % 0; Platelet Count 223 10^3/ul (150-450); Red Blood Count 3.73 10^6/ul (4.00-5.40); Red Cell Distribution Width 15 % (10.5-15); White Blood Count 4.8 10^3/ul (3.5-10.8)
[2018-09-08 05:40] LABS: BUN/Creatinine Ratio 14.3 (8-20); Calcium 8.9 mg/dL (8.6-10.3); EGFR Non-African American 93.9 (>60); Magnesium 1.9 mg/dL (1.9-2.7); Phosphorus 3.4 mg/dL (2.5-5.0)
[2018-09-08] MEDS ORDERED: Levothyroxine TAB* 100 MCG TAB ONE (05:47)
[2018-09-08] MEDS: diPHENhydraMINE PO* 50 MG PO PRN ×2 (05:50→12:38)
[2018-09-08] MEDS: oxyCODONE SR TAB(*) 10 MG TAB.SR PO SCH ×3 (05:50→22:00)
[2018-09-08] MEDS: Levothyroxine TAB* 75 MCG TAB PO SCH (05:50)
[2018-09-08] MEDS: hydrALAZINE TAB* 100 MG ** ONE HUNDRED PO SCH ×3 (08:02→20:51)
[2018-09-08] MEDS: DULoxetine DR CAP* 30 MG CAP.DR PO SCH (08:03)
[2018-09-08] MEDS: Docusate CAP* 100 MG PO SCH ×2 (08:03→20:51)
[2018-09-08] MEDS: Isosorbide Mononitrate ER TAB* 30 MG PO SCH (08:03)
[2018-09-08] MEDS: Pregabalin CAP(*) 100 MG PO SCH ×3 (08:03→20:51)
[2018-09-08] MEDS: amLODIPine TAB* 5 MG PO SCH (08:03)
[2018-09-08] MEDS: Carvedilol TAB* 25 MG PO SCH ×2 (08:04→20:51)
--- NOTE | 2018-09-08 08:10 | PN ---
Progress Note - Progress Note Date of Service: 09/07/18 SOAP: Delayed Entry Subjective: []Patient was seen late last night in ICU. No events ON. Tolerates PO well. LERMA improves after dilaudid. Voids. OOB in a chair. Ambulates. Objective: []VSS, Afebrile Wound s,c,d, Valve pumps and refills well. AAOx3, JOSEPH, CN II-XII grossly intact Motor 4-5/5 except LLE 4-/5 with o/5 Lt foot DF, EHL (baseline per patient after hx of lumbar surgery). No pronator drift. Sensory grossly intact to light touch, except decreased sensation LLE below inguinal area and loss of sensation in Lt Foot. (Baseline per patient after hx of lumbar surgery) Assessment: []58 yom Darrell SDH Acute on chronic sp VPS for NPH, sp valve settings revision Plan: []Monitor VS, Neurochecks Consider repeat CT today. Ok to transfer to floor BP control OOB as tolerated. Diet as tolerated. Appreciate IM care. Jennifer Lutz MD
[2018-09-08] MEDS: Insulin LISPRO* 1 UNITS UNIT SUBCUT SCH ×4 (08:13→20:48)
[2018-09-08] MEDS: HYDROcodone/ACETAMIN 5-325 MG* 1 TAB PO PRN (10:29)
[2018-09-08] MEDS: oxyCODONE TAB* 5 MG TAB PO PRN (12:38)
[2018-09-08] MEDS: Acetaminophen TAB* 325 MG PO PRN (13:31)
--- NOTE | 2018-09-08 16:03 | PN ---
Progress Note - Progress Note Date of Service: 09/08/18 SOAP: Subjective: []Events noted Patient seen and examined He feels better since having shunt adjusted Objective: []Neuro intact Assessment: []F/U CT shows subdurals improved Plan: []Suggest D/C once oral pain meds controlled. Would be happy to follow as outpatient
[2018-09-08] MEDS: Methocarbamol TAB* 500 MG PO SCH ×2 (16:29→20:50)
[2018-09-08] MEDS: Acetaminophen TAB* 325 MG PO SCH (16:29)
[2018-09-08] MEDS: Artificial Tears* 15 ML BTL BOTH EYES PRN (16:30)
[2018-09-08] MEDS ORDERED: Acetaminophen TAB* 325 MG PO SCH (21:00)
--- NOTE | 2018-09-08 21:08 | PN ---
Subjective Date of Service: 09/08/18 Interval History: Pt seen and examined. Meds and labs reviewed. CC: LERMA and back pain ROS: Denied LERMA/dizziness, F/C, N/V, CP, SOB, increased cough, sputum production , abd pain, diarrhea, constipation, dysuria, myalgias, arthralgias, throat pain , and new skin lesions. The rest of the 14 point ROS are unremarkable. PHYSICAL EXAM: GEN APPEARANCE: Awake, not in acute distress HEENT: NC/AT, PERRLA, moist oral mucosa, (-) throat erythema, continued improvement of periorbital edema, erythematous NECK: Soft, supple, (-) cervical LAD, (-)JVD HEART: S1S2 WNL, RRR, No MRG CHEST: CTA, BL, GAE, No W/R/R ABD: Soft, ND/NT, NABS 4x Q EXT: No C/C/E SKIN: Warm to touch PSYCH: No active psychosis, hallucinations, depression, SI/HI Objective Active Medications: Acetaminophen (Tylenol Tab*) 650 mg PO Q4H PRN PRN Reason: FEVER/PAIN Last Admin: 09/08/18 13:31 Dose: 650 mg Acetaminophen (Tylenol Tab*) 975 mg PO 0900,2100 [facility] Last Admin: 09/08/18 16:29 Dose: 975 mg Hydrocodone Bitart/Acetaminophen ([place] 5-325 Tab*) 1 tab PO Q8H PRN PRN Reason: PAIN Last Admin: 09/08/18 10:29 Dose: 1 tab Amlodipine Besylate (Norvasc Tab*) 10 mg PO QAM [facility] Last Admin: 09/08/18 08:03 Dose: 10 mg Carvedilol (Coreg Tab*) 25 mg PO BID [facility] Last Admin: 09/08/18 20:51 Dose: 25 mg Dextrose (D50w Syringe 50 Ml*) 12.5 gm IV PUSH .FOR FS < 60 - SS PRN PRN Reason: FS < 60 Diphenhydramine HCl (Benadryl Po*) 50 mg PO Q6H PRN PRN Reason: Pruritus Last Admin: 09/08/18 12:38 Dose: 50 mg Docusate Sodium (Colace Cap*) 100 mg PO BID [facility] Last Admin: 09/08/18 20:51 Dose: 100 mg Duloxetine HCl (Cymbalta Cap*) 30 mg PO QAM [facility] Last Admin: 09/08/18 08:03 Dose: 30 mg Hydralazine HCl (Apresoline Tab*) 100 mg PO TID [facility] Last Admin: 09/08/18 20:51 Dose: 100 mg Hydromorphone HCl (Dilaudid Inj1s*) 1 mg IV SLOW PU Q2H PRN PRN Reason: PAIN Last Admin: 09/08/18 16:27 Dose: 1 mg Insulin Human Lispro (Humalog*) 0 units SUBCUT [facility]; Protocol Last Admin: 09/08/18 20:48 Dose: 8 unit Isosorbide Mononitrate (Imdur Er Tab*) 30 mg PO [facility] Last Admin: 09/08/18 08:03 Dose: 30 mg Levothyroxine Sodium (Synthroid Tab*) 175 mcg PO DAILY@0600 [facility] Last Admin: 09/08/18 05:50 Dose: 175 mcg Methocarbamol (Robaxin Tab*) 1,500 mg PO QID [facility] Last Admin: 09/08/18 20:50 Dose: 1,500 mg Ondansetron HCl (Zofran Inj*) 4 mg IV Q6H PRN PRN Reason: NAUSEA Last Admin: 09/06/18 15:56 Dose: 4 mg Oxycodone HCl (Oxycontin(*)) 10 mg PO Q8HR [facility] Last Admin: 09/08/18 14:32 Dose: 10 mg Oxycodone HCl (Roxycodone Tab*) 10 mg PO Q6H PRN PRN Reason: PAIN Last Admin: 09/08/18 12:38 Dose: 10 mg Polyvinyl Alcohol (Polyvinyl Alcohol 1.4% Opth*) 1 drop BOTH EYES Q2H PRN PRN Reason: DRY EYE Last Admin: 09/08/18 16:30 Dose: 1 drop Pregabalin (Lyrica Cap(*)) 200 mg PO TID [facility] Last Admin: 09/08/18 20:51 Dose: 200 mg Promethazine HCl (Phenergan Tab*) 12.5 mg PO Q6H PRN PRN Reason: NAUSEA Last Admin: 09/04/18 11:29 Dose: 12.5 mg Trazodone HCl (Desyrel Tab*) 50 mg PO BEDTIME PRN PRN Reason: INSOMNIA Last Admin: 09/07/18 22:12 Dose: 50 mg Vital Signs - 8 hr 09/08/18 09/08/18 09/08/18 14:32 15:53 16:27 Temperature 98.3 F Respiratory 12 17 Rate 09/08/18 19:27 Temperature 99.4 F Respiratory Rate Oxygen Devices in Use Now: CPAP Result Diagrams: 09/08/18 05:18 09/08/18 05:18 Additional Lab and Data: Laboratory Results - last 24 hr 09/04/18 09/04/18 09/04/18 13:14 17:59 20:58 POC Glucose (mg/dL) 124 H 230 H 147 H Assess/Plan/Problems-Billing Assessment: 58 yo male PMH NPH s/p VPshunt 07/13/18 complicated by b/l SDH needing proximal shunt revision and multiple adjustments; chronic pain, NIDM, HTN, MOLLY, Sz, Anxiety p/w worsened headache and chronic nausea in setting of large reduction 3 days prior of his total 120mg oxycodone daily to 30mg hydrocodone daily. CT H with possible acute on chronic worsening of SDH on left. Neurosurgery following. Repeat CT slightly better. - Patient Problems (1) Acute subdural hematoma Current Visit: Yes Status: Acute Code(s): S06.5X9A - TRAUM SUBDR HEM W LOC OF UNSP DURATION, INIT SNOMED Code(s): 78948607 Comment: -Appreciate NeuroSx F/U and per physical exam and repeat imaging, pt is neurologically stable -NeuroVS stable s/p shunt change to 2.5 on admission head of bed below 30 degrees with bed rest but can go to bathroom blood pressure control -Will await re-eval by NeuroSx (2) Periorbital edema Current Visit: Yes Status: Acute Code(s): R60.0 - LOCALIZED EDEMA SNOMED Code(s): 34738972 Comment: -Most likely due to dependent pooling post-op -Given erythema and pruritus, NeuroSx held Keppra for seizure prophylaxis due to possibility of hypersensitivity until pt reassessed by Sx -Given PRN Benadryl (3) Chronic subdural hematoma Current Visit: Yes Status: Acute Code(s): I62.03 - NONTRAUMATIC CHRONIC SUBDURAL HEMORRHAGE SNOMED Code(s): 93899744 Comment: plan as above (4) Headache Current Visit: No Status: Acute Code(s): R51 - HEADACHE SNOMED Code(s): 44872496 Comment: #Headache w/chronic pain - continue dilaudid 1mg q2h for breakthrough - continue oxycontin at 10mg q8 anika and oxycodone 10mg q6 prn (total max 70), had recently been (change on 08/31) on oxycontin 20mg q8 anika with oxycodone 10mg q4 (total max 120) but was reportedly having confusion. -Will maximize lyriuca and start methocarbamol and Tylenol BID for synergy (5) HTN (hypertension) Current Visit: No Status: Acute Code(s): I10 - ESSENTIAL (PRIMARY) HYPERTENSION SNOMED Code(s): 27482689 Comment: SBP 110-120s - try to control headache symptoms which was likely driving some of the exacerbation. - Continue Norvasc 10mg daily, Imdur 30mg daily, coreg 25mg BID, hydralazine 100mg TID - stop lisinopril 20mg daily (was told to stop this as an outpatient) (6) DM type 2 (diabetes mellitus, type 2) Current Visit: No Status: Acute Comment: - on metformin 1000mg BID and glipizide 10mg BID at home. - A1C was 7.8% on 03/04/18 - if eating(currently npo): carb consistent diet - Continue FS and lispro SSI ACHS. (7) G6PD deficiency Current Visit: No Status: Acute Code(s): D55.0 - ANEMIA DUE TO GLUCOSE-6- PHOSPHATE DEHYDROGENASE DEFICIENCY SNOMED Code(s): 506243110 Comment: noted. (8) Hypothyroid Current Visit: No Status: Acute Code(s): E03.9 - HYPOTHYROIDISM, UNSPECIFIED SNOMED Code(s): 38419952 Comment: - Continue synthroid 175mcg (9) Normal pressure hydrocephalus Current Visit: No Status: Acute Code(s): G91.2 - (IDIOPATHIC) NORMAL PRESSURE HYDROCEPHALUS SNOMED Code(s): 73748481 Comment: plan as above. (10) MOLLY on CPAP Current Visit: No Status: Acute Code(s): G47.33 - OBSTRUCTIVE SLEEP APNEA ( ADULT) (PEDIATRIC); Z99.89 - DEPENDENCE ON OTHER ENABLING MACHINES AND DEVICES SNOMED Code(s): 46212976 Comment: -Continue home CPAP (11) Status post ventriculo-peritoneal shunt placement Current Visit: No Status: Acute Comment: - s/p ventriculostomy revision with Dr. Uribe on 07/26 - Plan of care per nurosurgery. (12) DVT prophylaxis Current Visit: No Status: Acute Code(s): HWN0025 - SNOMED Code(s): 031750467 Comment: -Continue SCDs. no a/c given acute on chronic SDH Status and Disposition: -For transfer to medical floor and if stable for possible D/C in AM
[2018-09-09] MEDS: HYDROcodone/ACETAMIN 5-325 MG* 1 TAB PO PRN (03:23)
[2018-09-09] MEDS: HYDROmorphone INJ1* 1 MG/ML SYRINGE IV SLOW PU PRN ×3 (03:36→12:18)
[2018-09-09] MEDS: Ondansetron INJ* 2 MG/ML VIAL IV PRN (03:56)
[2018-09-09] MEDS: oxyCODONE SR TAB(*) 10 MG TAB.SR PO SCH (05:13)
[2018-09-09 05:33] LABS: ABS Basophils 0 10^3/ul (0-0.2); ABS Eosinophils 0.1 10^3/ul (0-0.6); ABS Lymphocytes 0.7 10^3/ul (1.0-4.8); ABS Monocytes 0.5 10^3/ul (0-0.8); ABS Neutrophils 3.2 10^3/ul (1.5-7.7); ABS Nucleated RBC 0 10^3/ul; Eosinophil % 2.4 %; Hematocrit 33 % (42-52); Hemoglobin 10.9 g/dl (14.0-18.0); Lymphocyte % 15.8 %; Mean Corpuscular HGB Conc 33 g/dl (31-36); Mean Corpuscular Hemoglobin 29 pg (27-31); Mean Corpuscular Volume 88 fL (80-94); Mean Platelet Volume 7.5 fL (7.4-10.4); Nucleated Red Blood Cells % 0; Platelet Count 236 10^3/ul (150-450); Red Blood Count 3.79 10^6/ul (4.00-5.40); Red Cell Distribution Width 15 % (10.5-15); White Blood Count 4.5 10^3/ul (3.5-10.8)
[2018-09-09] MEDS ORDERED: Levothyroxine TAB* 100 MCG TAB ONE (05:55)
[2018-09-09 05:56] LABS: Albumin 4.1 g/dL (3.2-5.2); Albumin/Globulin Ratio 1.5 (1-3); BUN/Creatinine Ratio 15.8 (8-20); Calcium 9.1 mg/dL (8.6-10.3); EGFR Non-African American 105.3 (>60); Globulin 2.7 g/dL (2-4); Magnesium 1.8 mg/dL (1.9-2.7); Phosphorus 2.7 mg/dL (2.5-5.0); Total Bilirubin 0.2 mg/dL (0.2-1.0); Total Protein 6.8 g/dL (6.4-8.9)
[2018-09-09] MEDS: Levothyroxine TAB* 75 MCG TAB PO SCH (05:57)
[2018-09-09] MEDS: Artificial Tears* 15 ML BTL BOTH EYES PRN (06:12)
[2018-09-09] MEDS: DULoxetine DR CAP* 30 MG CAP.DR PO SCH (08:04)
[2018-09-09] MEDS: Methocarbamol TAB* 500 MG PO SCH ×2 (08:04→12:18)
[2018-09-09] MEDS: Acetaminophen TAB* 325 MG PO SCH (08:04)
[2018-09-09] MEDS: Pregabalin CAP(*) 100 MG PO SCH (08:04)
[2018-09-09] MEDS: amLODIPine TAB* 5 MG PO SCH (08:04)
[2018-09-09] MEDS: Isosorbide Mononitrate ER TAB* 30 MG PO SCH (08:04)
[2018-09-09] MEDS: Carvedilol TAB* 25 MG PO SCH (08:05)
[2018-09-09] MEDS: hydrALAZINE TAB* 100 MG ** ONE HUNDRED PO SCH (08:05)
[2018-09-09] MEDS: Docusate CAP* 100 MG PO SCH (08:07)
[2018-09-09] MEDS: Insulin LISPRO* 1 UNITS UNIT SUBCUT SCH ×2 (09:10→12:21)
[2018-09-09 09:45] VITALS: BP 126/81
--- NOTE | 2018-09-09 10:11 | PN ---
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 Feeling well this morning although does complain of right sided mild headache. Denies nausea, vision change, vomiting, dizziness. Ambulating at baseline. Requires large doses pain medication.] Objective: [ Vital Signs: Temp Pulse Resp BP Pulse Ox 98.5 F 79 17 126/81 90 09/09/18 08:00 09/09/18 09:00 09/09/18 09:00 09/09/18 09:00 09/09/18 09:00 General: Alert and oriented, NAD. Laying comfortably in bed. Neuro: Motor and sensory at baseline, LLE weakness. PERRL, EOMI. Speech is clear. [place] refills when compressed. ] Assessment: [Improved after shunt adjustment to 2.5.] Plan: [1. Cleared neurosurgically for discharge home. 2. Follow up in office, patient knows to call for appointment.]
[2018-09-09] MEDS: oxyCODONE TAB* 5 MG TAB PO PRN (11:16)
--- NOTE | 2018-09-09 16:18 | DS ---
CC: Dr. Meghann Valencia; Dr. Richie Trimble; Dr. Lutz; Dr. Sebastian Baugh * DISCHARGE SUMMARY: DATE OF ADMISSION: DATE OF DISCHARGE: 09/09/18 DISCHARGE DIAGNOSES: 1. Acute on chronic subdural hematoma, status post proximal shunt revision and multiple adjustments in the past. 2. Periorbital edema. 3. Headache/chronic pain issues. DISCHARGE MEDICATIONS: 1. Tylenol 975 mg p.o. b.i.d. for 10 days. 2. Amlodipine 10 mg p.o. q.a.m. 3. Artificial tears, 1 drop to both eyes q.2 hours p.r.n. 4. Carvedilol 25 mg p.o. b.i.d. 5. Diphenhydramine 50 mg p.o. q.6 p.r.n. 6. Colace 100 mg p.o. b.i.d. 7. Duloxetine DR capsule 30 mg p.o. q.a.m. 8. Hydralazine 100 mg p.o. t.i.d. 9. Isosorbide mononitrate 30 mg p.o. q.a.m. 10. Levothyroxine 175 mcg p.o. q.a.m. 11. Methocarbamol 1500 mg p.o. 4 times a day, dispensed 120 tabs with 0 refills. 12. Oxycodone SR 10 mg p.o. q.8 hours p.r.n., 10 tabs dispensed with 0 refills. 13. Oxycodone 10 mg p.o. q.6 p.r.n., 12 tabs dispensed with 0 refills. 14. Pregabalin 200 mg p.o. t.i.d. 15. Promethazine 12.5 mg p.o. q.6 p.r.n. 16. Trazodone 50 to 150 mg p.o. at bedtime. 17. Capsaicin cream 0.1% topically t.i.d. p.r.n. 18. Glipizide 10 mg p.o. b.i.d. 19. [place] 5/325 one tab p.o. t.i.d. 20. Ibuprofen 800 mg p.o. q.6 p.r.n. 21. Lisinopril 20 mg p.o. daily. 22. Metformin 1000 mg p.o. b.i.d. 23. Naloxone nasal spray 4 mg both nares once. 24. Pioglitazone 45 mg p.o. q.a.m. 25. Simvastatin 40 mg p.o. at bedtime. HISTORY OF PRESENT ILLNESS/HOSPITAL COURSE: The patient is a 58-year-old gentleman who presented to the emergency room with a chief complaint of headache, possibly accompanied by some chest pain and left shoulder pain the morning of his admission, whose cardiac enzymes were negative x2 during this hospital stay. 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 Dr. Uribe then increased the settings of the valve from 1.5 to 2 on 08/25/18 because of significant findings consistent with bilateral subdural hematomas. The patient reported that he has been having headache with nausea. He denied any vision or speech difficulties. He has been having some problems with memory as well as the weakness of his lower extremity, which led to his admission on 09/03/18, due to his acute on chronic subdural hematomas. He was monitored in the ICU with neuro vital signs as well as subsequent cranial images that showed that his subdural hematoma has been stable. During the course of his evaluation, there has been some concern around his periorbital swelling and given he was just recently placed on Keppra , Keppra has since been discontinued, but this is likely due to the pooling of blood from his recent surgical procedures towards the dependent portions of his face and were otherwise benign. He did not have any seizures during his hospitalization stay and hence, the patient is to continue to be off Keppra at this time. His hypertension has also been better controlled during this hospitalization process. His headache has improved and has been maximized on Lyrica. He is to take his Tylenol b.i.d. as well as the rest of his pain meds prescribed along with his muscle relaxant. The patient had been advised to follow up and will call his PCP within 3 days post discharge and to follow up with his neurosurgeon per their instruction. He was advised to contact his PCP and/or Neurosurgery if he needs refills of his pain medications. If his symptoms resume or develop new ones, he was advised to call his PCP and if his PCP cannot entertain him due to scheduling issues alone, to call [facility] if the issue is considered nonemergent. He was advised to call my office regarding any questions, concerns or further clarifications regarding his discharge plans and/or prescriptions and to take his medications as prescribed. REVIEW OF SYSTEMS: The patient mentions that he is having some headache at the moment, but has recently asked for his pain meds, but feels he is at his baseline. He denied any fevers, chills, nausea, vomiting, chest pain, shortness of breath, increased cough and/or sputum production, abdominal pain, diarrhea, constipation, pain and/or increased frequency on urination, myalgias, arthralgias, throat pain or new skin lesions. The rest of the 14-point review of systems are otherwise unremarkable. PHYSICAL EXAMINATION: Reveals the most recent vital signs of records, blood pressure of 126/81, 78 beats per minute heart rate, 17 per minute respiratory rate, saturating at 90% on room air. General Appearance: The patient is awake , alert, and oriented x3, not in acute distress. HEENT: Normocephalic with postsurgical changes. PERRLA. Extraocular muscles intact. Negative for icterus. Moist oral mucosa. Negative throat erythema. Neck is soft, supple, with no cervical lymphadenopathy, with no JVD. Heart: S1 and S2 within normal limits. Regular rate and rhythm. No murmurs, rubs, or gallops. Chest: Clear to auscultation bilaterally. Good air entry. No wheezes, rales, or rhonchi. Abdomen is soft, nondistended, nontender. Normoactive bowel sounds x4 quadrants. Extremities: No cyanosis, clubbing, or edema. Psychiatric: No active psychosis, depression, suicidal or homicidal ideations. Skin is warm to touch. TIME SPENT: The total time spent evaluating the patient, reviewing pertinent data and appropriate documentation, is 50 minutes. [id number]/[facility] #: [id number] FELIPA
== END 2018-09-09 13:15 | disposition home or self-care (01) | DRG 66 ==
LOC: ED 13:44 → ICU 19:06
PROVIDERS: ADMIT Internal Medicine; ATTEND Student in an Organized Health Care Education/Training Program
DX: I62.01 Nontraumatic acute subdural hemorrhage (principal); I10 Essential (primary) hypertension; E11.9 Type 2 diabetes mellitus without complications; L29.9 Pruritus, unspecified; R60.9 Edema, unspecified; L53.9 Erythematous condition, unspecified; I62.03 Nontraumatic chronic subdural hemorrhage; D57.1 Sickle-cell disease without crisis; R26.9 Unspecified abnormalities of gait and mobility; M21.372 Foot drop, left foot; E66.9 Obesity, unspecified; E78.5 Hyperlipidemia, unspecified; G89.29 Other chronic pain; M54.2 Cervicalgia; R51 Headache; E03.9 Hypothyroidism, unspecified; R11.0 Nausea; M15.9 Polyosteoarthritis, unspecified; F41.9 Anxiety disorder, unspecified; G47.33 Obstructive sleep apnea (adult) (pediatric); D55.0 Anemia due to glucose-6-phosphate dehydrogenase [G6PD] deficiency; Z79.84 Long term (current) use of oral hypoglycemic drugs; Z82.49 Family history of ischemic heart disease and other diseases of the circulatory system; Z56.0 Unemployment, unspecified; Z98.2 Presence of cerebrospinal fluid drainage device; Z98.1 Arthrodesis status; Z68.34 Body mass index [BMI] 34.0-34.9, adult; Z87.828 Personal history of other (healed) physical injury and trauma; Z87.820 Personal history of traumatic brain injury; Z88.6 Allergy status to analgesic agent; Z88.0 Allergy status to penicillin; Z88.2 Allergy status to sulfonamides; Z88.8 Allergy status to other drugs, medicaments and biological substances; Z80.1 Family history of malignant neoplasm of trachea, bronchus and lung; Z83.79 Family history of other diseases of the digestive system; Z72.89 Other problems related to lifestyle
CPT/HCPCS: 36415; 70450; 71046; 80048; 80053; 83605; 83735; 84100; 84443; 84484; 85025; 85027; 85379; 85610; 93005; 99284; A9270-GY; G8978-GP-CI; G8979-GP-CI; G8980-GP-CI; J1170; J1200; J2405; J3010; J3475

== ENCOUNTER 2019-05-23 06:16 | Inpatient (IN) | payer MEDICARE, OTHER ==
[~2019-05-23 06:16] MED LIST: Buffered Lidocaine 1% SYRIN* 1 ML/SYRINGE INTRADERM ONE; Lactated Ringers 1000 ML Bag* 1,000 ML IV SCH; Tranexamic Acid 1,000 MG in NS 0.9% 50 ML* (outpatient use) IV SCH
[2019-05-23] MEDS ORDERED: Clindamycin 900 MG/D5W BAG(*) 0 MG/0 ML BAG IVPB ONE (06:35)
[2019-05-23] MEDS ORDERED: Buffered Lidocaine 1% SYRIN* 1 ML/SYRINGE INTRADERM ONE (06:35)
[2019-05-23] MEDS ORDERED: ceFAZolin 2 GM in NS PREMIX(*) 2 GM/100 ML BAG IVPB ONE (07:07)
[2019-05-23] MEDS ORDERED: Propofol* 10 MG/ML 20 ML BTL ONE (07:11)
[2019-05-23] MEDS ORDERED: Lidocaine 2% PF * 5 ML VIAL ONE (07:12)
[2019-05-23] MEDS ORDERED: ROPIVACAINE 5 MG/ML 30 ML BTL (0.5%) ONE (07:12)
[2019-05-23] MEDS ORDERED: fentaNYL* 50 MCG/ML 2 ML VIAL (100 MCG VIAL) ONE (07:12)
[2019-05-23] MEDS ORDERED: Midazolam* 1 MG/ML 2 ML VIAL (2 MG) ONE (07:12)
[2019-05-23] MEDS ORDERED: Rocuronium* 10 MG/ML VIAL ONE ×2 (07:12→10:05)
[2019-05-23] MEDS ORDERED: Dexmedetomidine* 200 MCG/2 ML 2 ML VIAL ONE (07:13)
[2019-05-23] MEDS ORDERED: Insulin REGULAR(*) 1 UNITS UNIT ONE (07:44)
[2019-05-23] MEDS ORDERED: Bupivacaine 0.5% W/EPI SDV* 10 ML VIAL INJ ONE (08:19)
[2019-05-23] MEDS ORDERED: Succinylcholine* 20 MG/ML 10 ML VIAL ONE (08:54)
[2019-05-23] MEDS ORDERED: Phenylephrine 10 MG/ML VIAL* 1 ML VIAL ONE (08:55)
[2019-05-23] MEDS ORDERED: Dexamethasone IV* 4 MG/ML 1 ML (4 MG) ONE (09:03)
[2019-05-23] MEDS ORDERED: KETAMINE HCL* 50 MG/ML 10 ML VIAL ONE (09:04)
[2019-05-23] MEDS ORDERED: ceFAZolin VIAL(*) VIAL ONE (09:11)
[2019-05-23] MEDS ORDERED: VASOPRESSIN 20 UNITS/ML 1 ML VIAL ONE (09:12)
[2019-05-23] MEDS ORDERED: Naloxone* 0.4 MG/ML 1 ML VIAL IV PRN (09:51)
[2019-05-23] MEDS ORDERED: Acetaminophen IV 1GM/100ML * 100 ML ONE (09:51)
[2019-05-23] MEDS ORDERED: Ondansetron INJ* 2 MG/ML VIAL ONE (09:52)
[2019-05-23] MEDS ORDERED: Metoclopramide IV* 5 MG/ML 2 ML VIAL ONE (09:52)
[2019-05-23] MEDS ORDERED: HYDROmorphone INJ1* 1 MG/ML SYRINGE ONE ×5 (10:58→13:21)
[2019-05-23] MEDS ORDERED: Glycopyrrolate IV* 0.2 MG/ML 1 ML VIAL ONE (11:02)
[2019-05-23] MEDS ORDERED: Neostigmine Methylsulfate* 1 MG/ML 10 ML VIAL (1 mg/ml) ONE (11:02)
[2019-05-23] MEDS ORDERED: Magnesium Hydroxide LIQ* 30 ML UDC PO PRN (11:40)
[2019-05-23] MEDS ORDERED: oxyCODONE/Acetamin 5/325 MG* TAB PO PRN ×2 (11:40)
[2019-05-23] MEDS ORDERED: Bisacodyl SUPP* 10 MG SUPP PR PRN (11:40)
[2019-05-23] MEDS ORDERED: diPHENhydraMINE IV* 50 MG/ML 1 ml VIAL (BENADRYL) IV PRN (11:40)
[2019-05-23] MEDS ORDERED: Morphine 4 MG/ML VIAL (1 ml) 4 MG/ML VIAL IV PRN (11:40)
[2019-05-23] MEDS ORDERED: Polyethylene Glycol 3350* 17 GM PACKET PO PRN (11:40)
[2019-05-23] MEDS: HYDROmorphone INJ1* 1 MG/ML SYRINGE IV PRN ×6 (11:50→12:40)
[2019-05-23] MEDS ORDERED: oxyCODONE TAB* 5 MG TAB ONE (12:04)
[2019-05-23] MEDS: oxyCODONE TAB* 5 MG TAB PO PRN ×4 (12:05→20:07)
[2019-05-23] MEDS ORDERED: Insulin LISPRO* 1 UNITS UNIT SUBCUT ONE (12:17)
[2019-05-23] MEDS ORDERED: Dextrose 50% VIAL 50 ml IV PUSH PRN (12:19)
[2019-05-23] MEDS ORDERED: Insulin GLARGINE(*) 1 UNITS UNIT SUBCUT SCH (13:00)
[2019-05-23] MEDS ORDERED: traMADol TAB* 50 MG PO PRN (13:19)
[2019-05-23] MEDS ORDERED: oxyCODONE TAB* 5 MG TAB PO PRN (13:22)
[2019-05-23] MEDS: HYDROmorphone INJ1* 1 MG/ML SYRINGE IV SLOW PU PRN ×4 (13:26→22:33)
[2019-05-23] MEDS: Cyclobenzaprine TAB* 10 MG PO PRN ×2 (13:26→20:30)
[2019-05-23] MEDS: Lactated Ringers 1000 ML Bag* 1,000 ML IV SCH ×2 (13:29→23:29)
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
--- NOTE | 2019-05-23 14:19 | OP ---
DATE OF OPERATION: 05/23/19 - ROOM #349 DATE OF : 60 ATTENDING SURGEON: Uri Zafar MD INGREDIENT SCALER: CARLY Raymundo ANESTHESIA: General and regional. PRE-OP DIAGNOSIS: Osteoarthritis, right knee. POST-OP DIAGNOSIS: Osteoarthritis, right knee. OPERATIVE PROCEDURE: Right total knee arthroplasty. ESTIMATED BLOOD LOSS: 50 cc. COMPLICATIONS: None. HARDWARE: [employer] Legion knee, 6 narrow Oxinium femur, 9 mm PS poly, 32 mm patella, with NAVIO guidance. SUMMARY: Mr. Julien is a 59-year-old male who has had troubles with his knees for many years. He also has multiple other medical issues. He has had more and more troubles with knee pain which has been limiting him. By x-ray, he was [id number] of the medial compartment as well as having significant changes in the patellofemoral compartment. I discussed with him that a total knee arthroplasty should work well to decrease his knee pain and improve his function. I also warned him that some of his leg pain was clearly coming from his back and not related to the knee. That being said, he also had some very specific limitations because of the knee. I warned him that the knee replacement should work well to decrease the knee pain, but he would still have those other issues with leg pain. Other risks of surgery such as infection, scar formation, stiffness, DVT, pulmonary embolism, and hardware failure were some of the other risks discussed. He had been declared medically optimized and wished to proceed. DESCRIPTION OF PROCEDURE: The patient had a femoral nerve block placed and was brought to the OR. General endotracheal anesthesia was established and Parr catheter was placed. Tourniquet was placed over the proximal right thigh and was used during the case. Total tourniquet time would be 90 minutes. The right knee was prepped and then draped. Esmarch was used to exsanguinate the leg and the tourniquet was raised. Incision was made beginning about 3 to 4 fingerbreadths above the superior pole of the patella and was carried down to the medial side of the tibial tubercle. Incision was carried down through the skin and subcutaneous tissues. Small bleeders encountered were ligated using electrocautery. Extensor mechanism was nicely exposed and a sharp parapatellar arthrotomy was made. Gush of slightly bloody tinged, yellowish joint fluid was encountered. Soft tissues were sharply elevated from the medial side of the tibia and the fat pad were sharply excised. Patella measured 22 mm at its thickest, but he had some very specific lateral wear and a rongeur was used to take down all the osteophytes from around the patella. Patella cut was taken, leaving approximately 13 mm across the entirety. Patella was then easily subluxated laterally. The knee was flexed up. Nice exposure of the distal femur was obtained. Outriggers for the NAVIO were then installed at the tibial side about 4 fingerbreadths below the level of the tibial tubercle by drilling just the anterior cortex and then while on ream, engaging the posterior cortex. Similarly from the very top of the incision, outrigger was placed drilling in similar fashion. Pins for the tibia and femur were also placed. NAVIO guidance was then set up by double checking positioning of the outriggers, pins, medial and lateral malleoli, epicondyles, center of the tibia, and center of the femur. Alignment was then adjusted using the epicondylar access. Once all these had been set up, probe was then used to scan the surface of the femur until the NAVIO had a good image generated of the distal femur. Similarly, tibia was then also scanned using the probe until there was a good image of the tibia as well. This computer program was then run, allowing the computer to set the initial sizes and then these were adjusted. From where he was positioned, we adjusted his rotation so that there was a little extra external rotation, as he had significant loss of cartilage medially and loss of bone medially as well. This allowed for a better balance with his flexion and extension gaps on both the medial and lateral aspects. Similarly from where he was plotted to be, there would be some notching anteriorly, so the component was adjusted to be into a little bit of flexion and then tibia was adjusted a little bit to try and give him the best alignment. Once I liked all of the parameters, drew was then used using the NAVIO guidance to resect the distal femur. Holes were then made as well and cutting block was placed. Because the holes had been widened out a little bit, alignment guide was placed and this was adjusted until the alignment appeared to be perfect and this was then impacted and then pinned into place. This was double checked again and the alignment appeared to be quite good. Anterior and posterior femoral cuts followed by the chamfer cuts were taken. It appeared nice guts were obtained. Attention was turned to the tibia. Holes for the tibial cutter were then made and tibial cutter was then placed. This was then pinned into place and proximal tibial cut was taken. Tibial cut appeared to be quite good. Using a 10 spacer block, he was, however, a little bit tight on the medial side in both flexion and extension. Spacer block also was snug when I tried to place it into the gaps. Pins had been retained, so I was able to move to replace the tibial cutter for an additional 2 mm and additionally, because of the slight amount of play that there always is with the cutters, leaned on the medial side a little bit and pinned that into place. Tibial cut was retaken. Additional 2 mm was officially resected, and using the 10 block, this now slid in nicely and he locked out until what appeared to be full extension to inspection, but the NAVIO came back as still having about 5 degrees of flexion. At 90 degrees, he was nice and stable and there did not appear to be any flexion instability. I liked the alignments and pins were pulled. Tibia was sized and he sat nicely for a 5. Hole was drilled and punch was run. Coming back up to the femur, trial femur was then placed and adjusted so that it sat nicely and the notch cut was then finished using first the reamer and then the box coverer hand. Trial poly was then placed and he came out nicely into again what looked like full extension, but was 7 degrees short and easily flexed to 130 degrees. Patellar tracking was good even without the trial. Patella was sized and I thought the 32 sat well as there would have been superior and inferior overhang if I tried to cover more of the edges. Holes were drilled and trial was snapped into place. Patellar tracking was fine. Trial instrumentation was removed and knee was copiously pulse lavaged. Cement was being prepared. Tibia followed by femur and patella were all cemented into place. Excess cement was removed and the cement was allowed to harden. Once the cement had hardened, tourniquet was at 90 minutes and tourniquet was let down. He was trialed with a trial poly once again and had the same wonderful motion and stability. Outriggers had been removed as were the pins. The knee was again copiously pulse lavaged and searched for excess cement. A 10 cc of 0.5% Marcaine with epinephrine was injected behind each of the condyles and then additional 10 cc into the lateral gutter. Polyethylene was then snapped into place. The knee was again copiously pulse lavaged and parapatellar arthrotomy was repaired using interrupted #1 Vicryl sutures. Subcutaneous tissues were reapproximated with 2- 0 Vicryl. Skin was closed using ari. Sterile dressing and a Cryo/Cuff were applied in the OR. The patient was then extubated in the OR and was stable on transfer to the recovery room. [id number]/[facility] #: [id number] FELIPA
[2019-05-23] MEDS: Hydrocodone/Acetamin 10/325 1 TAB PO SCH ×2 (14:24→20:29)
[2019-05-23] MEDS: traMADol TAB* 50 MG PO PRN ×2 (14:25→22:10)
[2019-05-23] MEDS: hydrALAZINE TAB* 25 MG PO SCH ×2 (14:25→20:28)
[2019-05-23] MEDS: Pregabalin CAP(*) 100 MG PO SCH ×2 (14:25→20:30)
[2019-05-23] MEDS ORDERED: Warfarin TAB(*) 10 MG PO ONE (17:00)
[2019-05-23] MEDS: Insulin LISPRO* 1 UNITS UNIT SUBCUT SCH (17:47)
[2019-05-23] MEDS: ceFAZolin 1 GM ADVAN(*) 1 GM in NS 0.9% 50 ML* 50 ML IVPB SCH (17:52)
[2019-05-23] MEDS: Docusate CAP* 100 MG PO SCH (20:28)
[2019-05-23] MEDS: Carvedilol TAB* 25 MG PO SCH (20:29)
[2019-05-23] MEDS: Heparin VIAL(*) 5000 UNITS/ML VIAL (FIVE THOUSAND) SUBCUT SCH (20:31)
[2019-05-23] MEDS: Magnesium Hydroxide LIQ* 30 ML UDC PO SCH (20:32)
[2019-05-24] MEDS: oxyCODONE TAB* 5 MG TAB PO PRN ×6 (00:03→21:17)
[2019-05-24] MEDS: HYDROmorphone INJ1* 1 MG/ML SYRINGE IV SLOW PU PRN ×11 (00:32→21:53)
[2019-05-24] MEDS: ceFAZolin 1 GM ADVAN(*) 1 GM in NS 0.9% 50 ML* 50 ML IVPB SCH ×2 (00:37→08:15)
[2019-05-24] MEDS ORDERED: LORazepam INJ* 2 MG/ML 1 ML VIAL IV PUSH PRN (03:06)
[2019-05-24] MEDS ORDERED: Lorazepam PYXIS KEY PRN (03:06)
[2019-05-24] MEDS ORDERED: Lorazepam PYXIS KEY ONE (03:12)
[2019-05-24] MEDS ORDERED: LORazepam INJ* 2 MG/ML 1 ML VIAL ONE (03:13)
[2019-05-24] MEDS: Levothyroxine TAB* 175 MCG TAB PO SCH (06:07)
[2019-05-24] MEDS: traMADol TAB* 50 MG PO PRN ×2 (06:07→12:10)
[2019-05-24 06:16] LABS: Hematocrit 32 % (42-52); Hemoglobin 10.3 g/dL (14.0-18.0); Mean Platelet Volume 8.1 fL (7.4-10.4); Platelet Count 247 10^3/uL (150-450)
[2019-05-24 06:34] LABS: BUN/Creatinine Ratio 16.7 (8-20); Calcium 8.7 mg/dL (8.6-10.3); EGFR African American 104.5 (>60); EGFR Non-African American 86.4 (>60); Potassium 4.5 mmol/L (3.5-5.0)
[2019-05-24] MEDS: Insulin LISPRO* 1 UNITS UNIT SUBCUT SCH ×4 (08:14→18:35)
[2019-05-24] MEDS: Pregabalin CAP(*) 100 MG PO SCH ×3 (08:15→21:52)
[2019-05-24] MEDS: Magnesium Hydroxide LIQ* 30 ML UDC PO SCH ×2 (08:15→21:18)
[2019-05-24] MEDS: Heparin VIAL(*) 5000 UNITS/ML VIAL (FIVE THOUSAND) SUBCUT SCH ×2 (08:15→21:19)
[2019-05-24] MEDS: Docusate CAP* 100 MG PO SCH ×2 (08:16→21:17)
[2019-05-24] MEDS: Vitamin THERAPEUTIC TAB PO SCH (08:16)
[2019-05-24] MEDS: hydrALAZINE TAB* 25 MG PO SCH ×3 (08:16→21:18)
[2019-05-24] MEDS: Carvedilol TAB* 25 MG PO SCH ×2 (08:16→21:19)
[2019-05-24] MEDS: Atorvastatin* 20 MG TAB PO SCH (08:16)
[2019-05-24] MEDS: amLODIPine TAB* 5 MG PO SCH (08:17)
[2019-05-24] MEDS: Isosorbide Mononitrate ER TAB* 30 MG PO SCH (08:17)
[2019-05-24] MEDS: Hydrocodone/Acetamin 10/325 1 TAB PO SCH ×3 (08:39→21:18)
[2019-05-24] MEDS ORDERED: Lisinopril TAB* 10 MG PO SCH (09:00)
[2019-05-24] MEDS: DULoxetine DR CAP* 20 MG CAP.DR PO SCH (09:43)
[2019-05-24] MEDS: Insulin GLARGINE(*) 1 UNITS UNIT SUBCUT SCH ×2 (09:43→21:20)
[2019-05-24] MEDS: Cyclobenzaprine TAB* 10 MG PO PRN (09:46)
--- NOTE | 2019-05-24 10:11 | PN ---
Progress Note - Progress Note Date of Service: 05/24/19 SOAP: Subjective: []Pt seen at bedside. He reports continued right knee pain despite IV dilaudid, oxycodone, hydrocodone acetaminophen 10/325 mg, tramadol, flexeril, lyrica. Denies CP, SOB, dizziness, nausea. Objective: []Gen: NAD, appears well. RLE: Right knee dressing CDI, loosened dressing. Thigh is soft, DF/PF intact, DP2+, sensation intact to light touch distally Calves supple and nontender without erythema, edema or palpable cords Assessment: []POD 2 sp RTK G6PD Hyponatremia Plan: []WBAT PT/OT heparin bridge to coumadin. coumadin 6 mg tonight Repeat Na level tomorrow Appreciate hospitalist medical comanagement Unable to offer NSAIDs due to G6PD. Patient has been sedated though always arousable per staff. Dressing was loosened, recommend ice and elevation. Please wean off of IV dilaudid as soon as pain allows. Needs to be used as a PRN severe breakthrough pain medication, re-education was provided to patient. Vital Signs Temp 99.2 F 05/24/19 11:26 Pulse 77 05/24/19 11:26 Resp 18 05/24/19 14:26 BP 140/77 05/24/19 11:26 Pulse Ox 94 05/24/19 11:26 Intake & Output 05/23/19 05/24/19 05/24/19 18:59 06:59 18:59 Intake Total 580 2405 910 Output Total 900 875 425 Balance -320 1530 485 Weight 263 lb Intake: IV Fluids 100 1082 855 CEFAZOLIN 3 GM 100 LR 1082 855 IVPB 63 55 ABX - CEFAZOLIN 63 55 Oral 480 1260 Output: Urine 875 425 Parr 900 Laboratory Last Values Hgb 10.3 g/dL (14.0-18.0) L 05/24/19 05:59 Hct 32 % (42-52) L 05/24/19 05:59 Plt Count 247 10^3/uL (150-450) 05/24/19 05:59 MPV 8.1 fL (7.4-10.4) 05/24/19 05:59 INR (Anticoag Therapy) 1.38 (0.82-1.09) H 05/24/19 10:33 Sodium 131 mmol/L (135-145) L 05/24/19 05:58 Potassium 4.5 mmol/L (3.5-5.0) 05/24/19 05:58 Chloride 95 mmol/L (101-111) L 05/24/19 05:58 Carbon Dioxide 30 mmol/L (22-32) 05/24/19 05:58 Anion Gap 6 mmol/L (2-11) 05/24/19 05:58 BUN 15 mg/dL (6-24) 05/24/19 05:58 Creatinine 0.90 mg/dL (0.67-1.17) 05/24/19 05:58 Est GFR ( Amer) 104.5 (>60) 05/24/19 05:58 Est GFR (Non-Af Amer) 86.4 (>60) 05/24/19 05:58 BUN/Creatinine Ratio 16.7 (8-20) 05/24/19 05:58 Glucose 248 mg/dL (70-100) H 05/24/19 05:58 POC Glucose (mg/dL) 272 mg/dL (70-100) H 05/24/19 11:44 Calcium 8.7 mg/dL (8.6-10.3) 05/24/19 05:58
[2019-05-24 11:01] LABS: INR 1.38 (0.82-1.09)
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
[2019-05-24] MEDS ORDERED: Warfarin TAB(*) 6 MG PO SCH (17:00)
[2019-05-24] MEDS: metFORMIN* 1,000 MG TAB PO SCH (17:23)
[2019-05-24] MEDS: Ketorolac INJ* 30 MG/ML 1 ML VIAL IV PUSH SCH ×2 (18:33→23:41)
[2019-05-25] MEDS: HYDROmorphone INJ1* 1 MG/ML SYRINGE IV SLOW PU PRN ×6 (00:21→18:52)
[2019-05-25] MEDS: oxyCODONE TAB* 5 MG TAB PO PRN ×4 (01:27→15:20)
[2019-05-25] MEDS: Levothyroxine TAB* 175 MCG TAB PO SCH (04:54)
[2019-05-25] MEDS: Ketorolac INJ* 30 MG/ML 1 ML VIAL IV PUSH SCH ×4 (05:43→23:45)
[2019-05-25 06:35] LABS: Hematocrit 26 % (42-52); Mean Platelet Volume 8.3 fL (7.4-10.4); Platelet Count 201 10^3/uL (150-450)
[2019-05-25 06:55] LABS: INR 1.73 (0.82-1.09)
[2019-05-25] MEDS: Cyclobenzaprine TAB* 10 MG PO PRN ×2 (07:22→15:24)
[2019-05-25] MEDS: metFORMIN* 1,000 MG TAB PO SCH ×2 (07:23→17:20)
[2019-05-25] MEDS: traMADol TAB* 50 MG PO PRN ×2 (07:23→14:14)
[2019-05-25] MEDS: Lisinopril TAB* 10 MG PO SCH (08:28)
[2019-05-25] MEDS: amLODIPine TAB* 5 MG PO SCH (08:28)
[2019-05-25] MEDS: hydrALAZINE TAB* 25 MG PO SCH ×3 (08:28→21:05)
[2019-05-25] MEDS: Carvedilol TAB* 25 MG PO SCH ×2 (08:28→21:05)
[2019-05-25] MEDS: Insulin LISPRO* 1 UNITS UNIT SUBCUT SCH ×6 (08:30→17:27)
[2019-05-25] MEDS: Insulin GLARGINE(*) 1 UNITS UNIT SUBCUT SCH ×2 (08:30→21:03)
[2019-05-25] MEDS: Heparin VIAL(*) 5000 UNITS/ML VIAL (FIVE THOUSAND) SUBCUT SCH ×2 (08:30→21:06)
[2019-05-25] MEDS: Pregabalin CAP(*) 100 MG PO SCH ×3 (08:31→21:07)
[2019-05-25] MEDS: Atorvastatin* 20 MG TAB PO SCH (08:31)
[2019-05-25] MEDS: Hydrocodone/Acetamin 10/325 1 TAB PO SCH ×3 (08:31→21:06)
[2019-05-25] MEDS: Docusate CAP* 100 MG PO SCH ×2 (08:31→21:05)
[2019-05-25] MEDS: Isosorbide Mononitrate ER TAB* 30 MG PO SCH (08:31)
[2019-05-25] MEDS: Vitamin THERAPEUTIC TAB PO SCH (08:31)
[2019-05-25] MEDS: Magnesium Hydroxide LIQ* 30 ML UDC PO SCH ×2 (08:32→21:07)
[2019-05-25] MEDS: DULoxetine DR CAP* 20 MG CAP.DR PO SCH (08:43)
--- NOTE | 2019-05-25 10:45 | PN ---
Progress Note - Progress Note Date of Service: 05/25/19 SOAP: Subjective: []Pt seen OOB in chair today. His pain control is much better today, has not been needing dilaudid as often and intends not to use it any longer. Denies chest pain, shortness of breath, dizziness, nausea. Feels his abdomen is distended he has not yet had a bowel movement. He is tolerating PO well without abdominal pain. Objective: []Gen: NAD, appears well. RLE: Right knee dressing changed, incision CDI without erythema or discharge. There is a serous filled bullae medially not in communication with incision without any associated erythema. Redressed with betadine soaked telfa, guaze, gabriela over bullae and incision. Thigh is soft, DF/PF intact, DP2+, sensation intact to light touch distally Calves supple and nontender without erythema, edema or palpable cords Assessment: []POD 2 sp RTK G6PD Hyponatremia Plan: []WBAT PT/OT Heparin bridge to coumadin. coumadin 4 mg tonight Repeat Na level tomorrow Appreciate hospitalist medical comanagement Bowel meds ordered Tentative plan for DC [facility] when bed available/pending insurance approval Vital Signs Temp 98.5 F 05/25/19 07:22 Pulse 73 05/25/19 07:22 Resp 18 05/25/19 10:32 BP 105/51 05/25/19 07:22 Pulse Ox 94 05/25/19 07:22 Intake & Output 05/24/19 05/25/19 05/25/19 18:59 06:59 18:59 Intake Total 1760 630 420 Output Total 725 350 0 Balance 1035 280 420 Intake: IV Fluids 855 LR 855 IVPB 55 ABX - CEFAZOLIN 55 Oral 850 630 420 Output: Urine 725 350 0 Other: # Bowel Movements 0 Laboratory Last Values Hgb 9.0 g/dL (14.0-18.0) L 05/25/19 06:16 Hct 26 % (42-52) L 05/25/19 06:16 Plt Count 201 10^3/uL (150-450) 05/25/19 06:16 MPV 8.3 fL (7.4-10.4) 05/25/19 06:16 INR (Anticoag Therapy) 1.73 (0.82-1.09) H 05/25/19 06:15 Sodium 129 mmol/L (135-145) L 05/25/19 06:16 Potassium 4.5 mmol/L (3.5-5.0) 05/24/19 05:58 Chloride 95 mmol/L (101-111) L 05/24/19 05:58 Carbon Dioxide 30 mmol/L (22-32) 05/24/19 05:58 Anion Gap 6 mmol/L (2-11) 05/24/19 05:58 BUN 15 mg/dL (6-24) 05/24/19 05:58 Creatinine 0.90 mg/dL (0.67-1.17) 05/24/19 05:58 Est GFR ( Amer) 104.5 (>60) 05/24/19 05:58 Est GFR (Non-Af Amer) 86.4 (>60) 05/24/19 05:58 BUN/Creatinine Ratio 16.7 (8-20) 05/24/19 05:58 Glucose 248 mg/dL (70-100) H 05/24/19 05:58 POC Glucose (mg/dL) 204 mg/dL (70-100) H 05/25/19 07:27 Calcium 8.7 mg/dL (8.6-10.3) 05/24/19 05:58
[2019-05-25] MEDS ORDERED: Magnesium Hydroxide LIQ* 30 ML UDC PO PRN (10:51)
[2019-05-25] MEDS ORDERED: Polyethylene Glycol 3350* 17 GM PACKET PO PRN (10:51)
[2019-05-25] MEDS ORDERED: Senna TAB 8.6 mg* TAB PO PRN (10:51)
--- NOTE | 2019-05-25 13:51 | DS ---
Orthopedic Discharge Summary - Discharge Summary Date of Admission:05/23/19 Date of Discharge: 05/26/19 Date of Surgery: 05/23/19 Attending Orthopedic Provider: Dr Zafar Pre-operative Diagnosis: right knee osteoarthritis Operative Procedure: right total knee replacement Disposition of Patient: jamie swing Condition of Patient: stable History: JEROME BENJAMIN is a 59 year old M with PMHx G6PD deficiency with years of increasingly severe right knee pain. Patient has failed conservative management and has elected to undergo a right total knee replacement Hospital Course: JEROME was admitted to [facility] on 05/23/19. Patient underwent a right total knee replacement without complication followed by a brief recovery in PACU and transfer to the Short Stay Surgical Unit in stable condition. Our hospitalist service, physical therapy also participated in this patients care. Post-op day 1: patient was alert and in no acute distress. Dressing was clean, dry and intact. Operative extremity dorsiflexion and plantarflexion intact, sensation intact to light touch distally, DP2+. Post op day two Home Medications Medication Instructions Recorded Confirmed Type DULoxetine CAP* [Cymbalta CAP*] 40 mg PO QAM 03/25/13 05/23/19 History traZODone TAB* [Desyrel TAB*] 200 mg PO BEDTIME PRN 03/25/13 05/23/19 History Levothyroxine TAB* [Synthroid 75 175 mcg PO QAM 02/28/18 05/23/19 History MCG TAB*] Simvastatin (NF) [Zocor (NF)] 40 mg PO QAM 02/28/18 05/23/19 History glipiZIDE TAB* [Glucotrol TAB*] 10 mg PO BID 02/28/18 05/23/19 History metFORMIN* [Glucophage 1000 MG TAB 1,000 mg PO BID 02/28/18 05/23/19 History *] Docusate CAP* [Colace Cap*] 100 mg PO BID cap 03/04/18 05/23/19 Rx Promethazine TAB* [Phenergan Tab*] 12.5 mg PO Q6H PRN 07/06/18 05/23/19 History Capsaicin [Capzasin-Hp] 0.1 % TOPICAL TID PRN 09/03/18 05/23/19 History Carvedilol TAB* [Coreg TAB*] 25 mg PO BID 09/03/18 05/23/19 History Ibuprofen TAB* [Motrin TAB* 800 MG] 800 mg PO Q8H PRN 09/03/18 05/23/19 History Isosorbide Mononitrate ER TAB* 30 mg PO QAM 09/03/18 05/23/19 History [Imdur ER TAB*] Lisinopril TAB* [Prinivil TAB 10 20 mg PO QAM 09/03/18 05/23/19 History MG*] Naloxone Nasal Rampart* [Narcan 4 mg BOTH NARES ONCE PRN 09/03/18 05/23/19 History Nasal Rampart] Pioglitazone HCl [Actos] 15 mg PO QAM 09/03/18 05/23/19 History amLODIPine TAB* [Norvasc 5 mg TAB*] 10 mg PO QAM 09/03/18 05/23/19 History hydrALAZINE TAB* [Apresoline TAB*] 50 mg PO TID 09/03/18 05/23/19 History Pregabalin CAP(*) [Lyrica CAP(*)] 200 mg PO TID #90 cap MDD 3 09/09/18 05/23/19 Rx Acetaminophen TAB* [Tylenol TAB*] 975 mg PO 0900,2100 PRN 05/18/19 05/23/19 History Alogliptin (NF) [Nesina (NF)] 25 mg PO QAM 05/18/19 05/23/19 History Aspirin EC TAB* [Ecotrin EC Low 81 mg PO QAM 05/18/19 05/23/19 History Dose 81 MG*] Hydrocodone/Acetaminophen 1 tab PO TID 05/18/19 05/23/19 History [Hydrocodone-Acetamin 10-325 mg] Methocarbamol TAB* [Robaxin 500 MG 1,500 mg PO QID PRN 05/18/19 05/23/19 History TAB*] Acetaminophen TAB* [Tylenol TAB*] 650 mg PO Q8H PRN tab 05/25/19 Rx Docusate CAP* [Colace Cap*] 100 mg PO BID cap 05/25/19 Rx Ketorolac INJ* [Toradol INJ*] 30 mg IV PUSH Q6H vial 05/25/19 Rx oxyCODONE TAB* [Roxycodone TAB 5 10 mg PO Q4H PRN tab 05/25/19 Rx mg*] traMADol TAB* [Ultram*] 50 mg PO Q6H PRN tab 05/25/19 Rx Discharge Instructions following Orthopedic Surgery: Activity: * Weight Bearing as tolerated * Continue physical therapy and occupational therapy exercises as shown Wound care: * OK to shower on post-op day 3, no bathing, swimming, or submerging wound. * Use gentle soap, pat dry. Cover with gauze, VISH wrap or tape. Call Orthopedic office for: * Increased drainage * Redness * Increased pain * Fever Go to ER with shortness of breath or chest pain. Diet: * Regular diet * Increase fluids and fiber to prevent constipation. * Continue to use stool softeners, call office if no bowel motion within 48 hours. Medications See Home Medication List in your packet for medications that you should take after discharge. DVT Prophylaxis: Coumadin Dosing: Medication increases bleeding tendency. * Please note that you have been given 2 mg tablets. * Visiting home nurse to draw blood work for INR on Thursday and . * You will be provided with dose instructions on Mondays and . * If you do not receive dosing instruction on dosing, please call our office right away. Please isak dosing instructions on your calendar as they are provided to you. * Dosing: INR blood draw for further dosing instructions. Call orthopedic office if you do not receive dosing instructions. Pain Control: oxycodone 10 mg every 4 hours as needed for pain, wean off as soon as pain allows and hold for sedation cyclobenzaprine 5 mg 1 tab every 8 hours as needed for pain. hold for sedation, wean off as soon as pain allows Antibiotics are required prior to any dental work. FOLLOW UP: Follow up with Dr. Zafar in 4 weeks, call for appointment Please call our office with any questions or concerns ([phone])
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
[2019-05-25] MEDS ORDERED: Warfarin TAB(*) 4 MG PO ONE (17:00)
[2019-05-25] MEDS ORDERED: Docusate CAP* 100 MG PO SCH (21:00)
[2019-05-26] MEDS: HYDROmorphone INJ1* 1 MG/ML SYRINGE IV SLOW PU PRN (00:55)
[2019-05-26] MEDS: Ketorolac INJ* 30 MG/ML 1 ML VIAL IV PUSH SCH ×3 (05:33→18:04)
[2019-05-26] MEDS: Levothyroxine TAB* 175 MCG TAB PO SCH (05:34)
[2019-05-26 06:46] LABS: Hematocrit 23 % (42-52); Hemoglobin 8.2 g/dL (14.0-18.0); Mean Platelet Volume 8.3 fL (7.4-10.4); Platelet Count 184 10^3/uL (150-450)
[2019-05-26 06:54] LABS: INR 2.01 (0.82-1.09)
[2019-05-26] MEDS: Carvedilol TAB* 25 MG PO SCH ×2 (08:04→21:33)
[2019-05-26] MEDS: metFORMIN* 1,000 MG TAB PO SCH (08:04)
[2019-05-26] MEDS: Vitamin THERAPEUTIC TAB PO SCH (08:05)
[2019-05-26] MEDS: Isosorbide Mononitrate ER TAB* 30 MG PO SCH (08:05)
[2019-05-26] MEDS: hydrALAZINE TAB* 25 MG PO SCH ×3 (08:05→21:34)
[2019-05-26] MEDS: Lisinopril TAB* 10 MG PO SCH (08:05)
[2019-05-26] MEDS: Atorvastatin* 20 MG TAB PO SCH (08:05)
[2019-05-26] MEDS: amLODIPine TAB* 5 MG PO SCH (08:05)
[2019-05-26] MEDS: Docusate CAP* 100 MG PO SCH ×2 (08:05→21:34)
[2019-05-26] MEDS: Hydrocodone/Acetamin 10/325 1 TAB PO SCH ×3 (08:06→21:33)
[2019-05-26] MEDS: Pregabalin CAP(*) 100 MG PO SCH ×3 (08:06→21:34)
[2019-05-26] MEDS: Heparin VIAL(*) 5000 UNITS/ML VIAL (FIVE THOUSAND) SUBCUT SCH ×2 (08:06→21:34)
[2019-05-26 09:42] LABS: BUN/Creatinine Ratio 21.2 (8-20); Calcium 8.2 mg/dL (8.6-10.3); EGFR African American 44.4 (>60); EGFR Non-African American 36.7 (>60); Potassium 4.9 mmol/L (3.5-5.0)
[2019-05-26] MEDS: Insulin GLARGINE(*) 1 UNITS UNIT SUBCUT SCH ×2 (09:45→21:33)
[2019-05-26] MEDS: Insulin LISPRO* 1 UNITS UNIT SUBCUT SCH ×6 (09:45→18:00)
[2019-05-26] MEDS: Magnesium Hydroxide LIQ* 30 ML UDC PO SCH (09:59)
--- NOTE | 2019-05-26 11:20 | PN ---
Progress Note - Progress Note Date of Service: 05/26/19 SOAP: Subjective: []Pt seen and examined at bedside. He reports his abdomen feels less distended today and he has no nausea. He was made NPO last night due to concern for ileus/ obstruction. He continues to pass flatus and has had small bowel movements. Denies CP, SOB, dizziness. Objective: []Gen: Appears well, NAD, laying comfortably in bed RLE: Right knee dressing changed, incision CDI, no erythema, there is ecchymosis medially. Serous filled bullae medially as well. Thigh is soft, DF/ PF intact, DP2+, sensation intact to light touch distally. Calves supple and nontender without erythema, edema or palpable cords Abd: distended, nontender to palpation Assessment: []POD 3 sp RTK abdominal distention likely ileus hyponatremia Plan: []WBAT PT/OT heparin bridge to coumadin. Coumadin 4 mg today No DC today due to colonic distention. He will have a CT scan of the abdomen. Hyponatremia: serum/urine osmolalities ordered Appreciate hospitalist assistance in management of distention/ hyponatremia/ medical comorbidities Laboratory Last Values Hgb 8.2 g/dL (14.0-18.0) L 05/26/19 06:19 Hct 23 % (42-52) L 05/26/19 06:19 Plt Count 184 10^3/uL (150-450) 05/26/19 06:19 MPV 8.3 fL (7.4-10.4) 05/26/19 06:19 INR (Anticoag Therapy) 2.01 (0.82-1.09) H 05/26/19 06:19 Sodium 125 mmol/L (135-145) L 05/26/19 06:19 Potassium 4.9 mmol/L (3.5-5.0) 05/26/19 06:19 Chloride 88 mmol/L (101-111) L 05/26/19 06:19 Carbon Dioxide 29 mmol/L (22-32) 05/26/19 06:19 Anion Gap 8 mmol/L (2-11) 05/26/19 06:19 BUN 40 mg/dL (6-24) H 05/26/19 06:19 Creatinine 1.89 mg/dL (0.67-1.17) H 05/26/19 06:19 Est GFR ( Amer) 44.4 (>60) 05/26/19 06:19 Est GFR (Non-Af Amer) 36.7 (>60) 05/26/19 06:19 BUN/Creatinine Ratio 21.2 (8-20) H 05/26/19 06:19 Glucose 161 mg/dL (70-100) H 05/26/19 06:19 POC Glucose (mg/dL) 175 mg/dL (70-100) H 05/26/19 07:51 Calcium 8.2 mg/dL (8.6-10.3) L 05/26/19 06:19 Vital Signs Temp 98.5 F 05/26/19 07:48 Pulse 85 05/26/19 07:48 Resp 18 05/26/19 10:41 BP 148/58 05/26/19 07:48 Pulse Ox 89 05/26/19 07:48 Intake & Output 05/25/19 05/26/19 05/26/19 18:59 06:59 18:59 Intake Total 880 500 Output Total 520 350 Balance 360 500 -350 Intake: Oral 880 500 Output: Urine 520 350 Other: Estimated Void Large # Bowel Movements 1 1 Estimated Stool Amount Small Small # Voids 2
[2019-05-26] MEDS: DULoxetine DR CAP* 20 MG CAP.DR PO SCH (11:28)
[2019-05-26] MEDS: Cyclobenzaprine TAB* 10 MG PO PRN (11:42)
[2019-05-26] MEDS: NS 0.9% 1000 ML** 1,000 ML IV SCH (12:47)
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
[2019-05-26] MEDS ORDERED: Glycerin ADULT SUPP PR ONE (16:13)
[2019-05-26] MEDS ORDERED: Glycerin ADULT SUPP PR PRN (16:13)
[2019-05-26] MEDS ORDERED: Warfarin TAB(*) 4 MG PO ONE (17:00)
[2019-05-26 20:47] LABS: BUN/Creatinine Ratio 30.8 (8-20); Calcium 7.8 mg/dL (8.6-10.3); EGFR African American 77.2 (>60); EGFR Non-African American 63.8 (>60); Potassium 4.8 mmol/L (3.5-5.0)
[2019-05-27] MEDS: Ketorolac INJ* 30 MG/ML 1 ML VIAL IV PUSH SCH ×5 (00:29→23:52)
[2019-05-27] MEDS: Levothyroxine TAB* 175 MCG TAB PO SCH (04:55)
[2019-05-27 05:22] LABS: ABS Eosinophils 0.1 10^3/ul (0-0.6); ABS Lymphocytes 0.5 10^3/ul (1.0-4.8); ABS Monocytes 1.1 10^3/ul (0-0.8); ABS Neutrophils 7.7 10^3/ul (1.5-7.7); Eosinophil % 1.1 %; Hematocrit 22 % (42-52); Hemoglobin 7.4 g/dL (14.0-18.0); Lymphocyte % 5.5 %; Mean Corpuscular HGB Conc 34 g/dL (31-36); Mean Corpuscular Hemoglobin 30 pg (27-31); Mean Corpuscular Volume 86 fL (80-94); Mean Platelet Volume 8.1 fL (7.4-10.4); Nucleated Red Blood Cells % 0.2; Platelet Count 199 10^3/uL (150-450); Red Cell Distribution Width 14 % (10-15); White Blood Count 9.4 10^3/uL (3.5-10.8)
[2019-05-27 05:26] LABS: INR 1.92 (0.82-1.09)
[2019-05-27 05:43] LABS: BUN/Creatinine Ratio 33.6 (8-20); Calcium 7.6 mg/dL (8.6-10.3); EGFR African American 80.4 (>60); EGFR Non-African American 66.4 (>60); Potassium 4.5 mmol/L (3.5-5.0)
[2019-05-27] MEDS: Insulin LISPRO* 1 UNITS UNIT SUBCUT SCH ×6 (08:22→18:01)
[2019-05-27] MEDS: Docusate CAP* 100 MG PO SCH ×2 (08:30→21:26)
[2019-05-27] MEDS: Vitamin THERAPEUTIC TAB PO SCH (08:30)
[2019-05-27] MEDS: Atorvastatin* 20 MG TAB PO SCH (08:31)
[2019-05-27] MEDS: NS 0.9% 1000 ML** 1,000 ML IV SCH ×2 (08:52→18:09)
[2019-05-27] MEDS: amLODIPine TAB* 5 MG PO SCH (08:56)
[2019-05-27] MEDS: DULoxetine DR CAP* 20 MG CAP.DR PO SCH (08:56)
[2019-05-27] MEDS: Pregabalin CAP(*) 100 MG PO SCH ×3 (08:56→21:26)
[2019-05-27] MEDS: Carvedilol TAB* 25 MG PO SCH ×2 (08:56→21:26)
[2019-05-27] MEDS: hydrALAZINE TAB* 25 MG PO SCH ×3 (08:56→21:25)
[2019-05-27] MEDS: Lisinopril TAB* 10 MG PO SCH (08:56)
[2019-05-27] MEDS: Hydrocodone/Acetamin 10/325 1 TAB PO SCH ×3 (08:57→21:25)
[2019-05-27] MEDS: Isosorbide Mononitrate ER TAB* 30 MG PO SCH (08:57)
[2019-05-27] MEDS: Ondansetron INJ* 2 MG/ML VIAL IV PRN (08:59)
[2019-05-27] MEDS: Insulin GLARGINE(*) 1 UNITS UNIT SUBCUT SCH ×2 (09:00→20:24)
[2019-05-27] MEDS: Heparin VIAL(*) 5000 UNITS/ML VIAL (FIVE THOUSAND) SUBCUT SCH ×2 (09:05→21:28)
--- NOTE | 2019-05-27 10:39 | PN ---
Progress Note - Progress Note Date of Service: 05/27/19 SOAP: Subjective: []Patient seen at bedside. Denies nausea or vomiting. States he is not passing flatus this am. He had some diarrhea yesterday. He is still still feeling distended. Objective: [] Vital Signs Temp 97.5 F 05/27/19 08:26 Pulse 90 05/27/19 08:26 Resp 16 05/27/19 08:57 BP 182/57 05/27/19 08:26 Pulse Ox 97 05/27/19 08:26 Intake & Output 05/26/19 05/27/19 05/27/19 18:59 06:59 18:59 Intake Total 720 890 Output Total 600 400 Balance 120 490 Intake: IV Fluids 890 NS (0.9%) 890 Oral 720 0 Output: Urine 600 400 Other: Estimated Void Medium Date of Last Bowel 05/27/19 Movement # Bowel Movements 1 Estimated Stool Amount Medium # Voids 1 Laboratory Results - last 24 hr 05/26/19 05/26/19 05/26/19 06:19 11:33 12:20 WBC RBC Hgb Hct MCV MCH MCHC RDW Plt Count MPV Neut % (Auto) Lymph % (Auto) Woods % (Auto) Eos % (Auto) Baso % (Auto) Absolute Neuts (auto) Absolute Lymphs (auto) Absolute Monos (auto) Absolute Eos (auto) Absolute Basos (auto) Absolute Nucleated RBC Nucleated RBC % INR (Anticoag Therapy) Sodium Potassium Chloride Carbon Dioxide Anion Gap BUN Creatinine Est GFR ( Amer) Est GFR (Non-Af Amer) BUN/Creatinine Ratio Glucose POC Glucose (mg/dL) 154 H Serum Osmolality 285 Lactic Acid Calcium Urine Osmolality U Sodium Concentration < 18 05/26/19 05/26/19 05/26/19 12:20 14:47 14:47 WBC RBC Hgb Hct MCV MCH MCHC RDW Plt Count MPV Neut % (Auto) Lymph % (Auto) Woods % (Auto) Eos % (Auto) Baso % (Auto) Absolute Neuts (auto) Absolute Lymphs (auto) Absolute Monos (auto) Absolute Eos (auto) Absolute Basos (auto) Absolute Nucleated RBC Nucleated RBC % INR (Anticoag Therapy) Sodium 126 L Potassium Chloride Carbon Dioxide Anion Gap BUN Creatinine Est GFR ( Amer) Est GFR (Non-Af Amer) BUN/Creatinine Ratio Glucose POC Glucose (mg/dL) Serum Osmolality 280 Lactic Acid Calcium Urine Osmolality 407 U Sodium Concentration 05/26/19 05/26/19 05/26/19 14:47 16:36 20:18 WBC RBC Hgb Hct MCV MCH MCHC RDW Plt Count MPV Neut % (Auto) Lymph % (Auto) Woods % (Auto) Eos % (Auto) Baso % (Auto) Absolute Neuts (auto) Absolute Lymphs (auto) Absolute Monos (auto) Absolute Eos (auto) Absolute Basos (auto) Absolute Nucleated RBC Nucleated RBC % INR (Anticoag Therapy) Sodium 126 L Potassium 4.8 Chloride 92 L Carbon Dioxide 27 Anion Gap 7 BUN 36 H Creatinine 1.17 Est GFR ( Amer) 77.2 Est GFR (Non-Af Amer) 63.8 BUN/Creatinine Ratio 30.8 H Glucose 175 H POC Glucose (mg/dL) 160 H Serum Osmolality Lactic Acid 1.5 Calcium 7.8 L Urine Osmolality U Sodium Concentration 05/26/19 05/27/19 05/27/19 21:31 05:08 05:08 WBC 9.4 RBC 2.50 L Hgb 7.4 L Hct 22 L MCV 86 MCH 30 MCHC 34 RDW 14 Plt Count 199 MPV 8.1 Neut % (Auto) 81.3 Lymph % (Auto) 5.5 Woods % (Auto) 12.0 Eos % (Auto) 1.1 Baso % (Auto) 0.1 Absolute Neuts (auto) 7.7 Absolute Lymphs (auto) 0.5 L Absolute Monos (auto) 1.1 H Absolute Eos (auto) 0.1 Absolute Basos (auto) 0.0 Absolute Nucleated RBC 0.0 Nucleated RBC % 0.2 INR (Anticoag Therapy) 1.92 H Sodium Potassium Chloride Carbon Dioxide Anion Gap BUN Creatinine Est GFR ( Amer) Est GFR (Non-Af Amer) BUN/Creatinine Ratio Glucose POC Glucose (mg/dL) 150 H Serum Osmolality Lactic Acid Calcium Urine Osmolality U Sodium Concentration 05/27/19 05:08 WBC RBC Hgb Hct MCV MCH MCHC RDW Plt Count MPV Neut % (Auto) Lymph % (Auto) Woods % (Auto) Eos % (Auto) Baso % (Auto) Absolute Neuts (auto) Absolute Lymphs (auto) Absolute Monos (auto) Absolute Eos (auto) Absolute Basos (auto) Absolute Nucleated RBC Nucleated RBC % INR (Anticoag Therapy) Sodium 127 L Potassium 4.5 Chloride 93 L Carbon Dioxide 26 Anion Gap 8 BUN 38 H Creatinine 1.13 Est GFR ( Amer) 80.4 Est GFR (Non-Af Amer) 66.4 BUN/Creatinine Ratio 33.6 H Glucose 152 H POC Glucose (mg/dL) Serum Osmolality Lactic Acid Calcium 7.6 L Urine Osmolality U Sodium Concentration Left knee incision benign calf NT +DF left ankle sensation and circulation intact Abd distended without tenderness Assessment: []s/p LTK POD #4 post op colonic ileus Plan: []Encourge minimal narcotic use and ambulation WBAT LLE Encourage IS for lungs Medicine managing ileus, discussed with Dr. Blank, he will see patient this afternoon and consider GI consult Will hold Coumadin- heparin for DVT prophylaxis only in case any further GI procedures need to be done
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
[2019-05-27] MEDS ORDERED: Warfarin TAB(*) 4 MG PO SCH (17:00)
[2019-05-27] MEDS: Polyethylene Glycol 3350* 17 GM PACKET PO SCH (21:24)
[2019-05-27] MEDS: oxyCODONE TAB* 5 MG TAB PO SCH (21:26)
[2019-05-27] MEDS: traZODone TAB* 50 MG TAB PO PRN (21:26)
[2019-05-28] MEDS: Cyclobenzaprine TAB* 10 MG PO PRN ×2 (03:04→12:25)
[2019-05-28] MEDS: NS 0.9% 1000 ML** 1,000 ML IV SCH ×2 (03:08→13:07)
[2019-05-28 05:24] LABS: Hematocrit 18 % (42-52); Hemoglobin 6.1 g/dL (14.0-18.0); INR 2.35 (0.82-1.09); Mean Platelet Volume 8.1 fL (7.4-10.4); Platelet Count 192 10^3/uL (150-450)
--- NOTE | 2019-05-28 05:36 | PN ---
Hospitalist Progress Note Date of Service: 05/28/19 Coverage Note: Called overnight for critical value: Hgb 6.1. Blood counts having been trending down over last three days. Pt without hematemesis, melena, BRBPR, or concern for hematoma over surgical site. One note mentions discontinuing warfarin, but this was given last night and INR now 2.35. Unclear why on warfarin. Also receiving heparin injections. Pt not symptomatic from anemia. Not tachycardic but noted to be on beta-salinas. Will order STAT CBC and T & S, LDH, bili, and follow up. Discontinue NSAID, warfarin.
[2019-05-28 05:39] LABS: BUN/Creatinine Ratio 36.4 (8-20); EGFR African American 93.6 (>60); EGFR Non-African American 77.4 (>60); Potassium 3.9 mmol/L (3.5-5.0)
[2019-05-28 05:55] LABS: TSH (Thyroid Stimulating Horm) 0.46 mcIU/mL (0.34-5.60)
[2019-05-28 06:11] LABS: Hematocrit 19 % (42-52); Hemoglobin 6.5 g/dL (14.0-18.0); Mean Corpuscular HGB Conc 35 g/dL (31-36); Mean Corpuscular Hemoglobin 30 pg (27-31); Mean Corpuscular Volume 87 fL (80-94); Mean Platelet Volume 7.8 fL (7.4-10.4); Platelet Count 211 10^3/uL (150-450); Red Blood Count 2.15 10^6 /uL (4.18-5.48); Red Cell Distribution Width 14 % (10-15); White Blood Count 7.5 10^3/uL (3.5-10.8)
[2019-05-28 06:22] LABS: Albumin 3.1 g/dL (3.2-5.2); Albumin/Globulin Ratio 1.5 (1-3); Globulin 2.1 g/dL (2-4); Indirect Bilirubin 0.2 mg/dL (0.3-1.0); Total Bilirubin 0.4 mg/dL (0.2-1.0); Total Protein 5.2 g/dL (6.4-8.9)
[2019-05-28] MEDS: Levothyroxine TAB* 175 MCG TAB PO SCH (06:22)
[2019-05-28] MEDS: Ketorolac INJ* 30 MG/ML 1 ML VIAL IV PUSH SCH (06:27)
--- NOTE | 2019-05-28 08:18 | PN ---
Progress Note - Progress Note Date of Service: 05/28/19 SOAP: Subjective: Pt is doing well. Pain is controlled with medication. Had large BM this am and states distention is improving. Denies dizziness, SOB, palpitation or CP. Objective: PE- 59 y/o WDWN M NAD RLE- dressing changed today, inc c/d/i no signs of infection, one large and one small serous blister medial to incision with no surrounding warmth or erythema no drainage, calf soft NT, +DF/PF ankle, +2 DP pulse, SILT distally Vital Signs Temp Pulse Resp BP Pulse Ox 98.8 F 92 18 143/63 94 05/28/19 08:12 05/28/19 08:12 05/28/19 08:12 05/28/19 08:12 05/28/19 08:12 Laboratory Results - last 24 hr 05/27/19 05/27/19 05/28/19 11:25 16:59 04:36 WBC RBC Hgb 6.1 L* Hct 18 L MCV MCH MCHC RDW Plt Count 192 MPV 8.1 INR (Anticoag Therapy) Sodium Potassium Chloride Carbon Dioxide Anion Gap BUN Creatinine Est GFR ( Amer) Est GFR (Non-Af Amer) BUN/Creatinine Ratio Glucose POC Glucose (mg/dL) 171 H 143 H Calcium Total Bilirubin Direct Bilirubin Indirect Bilirubin AST ALT Alkaline Phosphatase Lactate Dehydrogenase Total Protein Albumin Globulin Albumin/Globulin Ratio TSH Blood Type Antibody Screen 05/28/19 05/28/19 05/28/19 04:36 04:36 06:04 WBC 7.5 RBC 2.15 L Hgb 6.5 L Hct 19 L MCV 87 MCH 30 MCHC 35 RDW 14 Plt Count 211 MPV 7.8 INR (Anticoag Therapy) 2.35 H Sodium 135 D Potassium 3.9 Chloride 103 Carbon Dioxide 27 Anion Gap 5 BUN 36 H Creatinine 0.99 Est GFR ( Amer) 93.6 Est GFR (Non-Af Amer) 77.4 BUN/Creatinine Ratio 36.4 H Glucose 220 H POC Glucose (mg/dL) Calcium 7.0 L Total Bilirubin 0.40 Direct Bilirubin 0.20 H Indirect Bilirubin 0.2 L AST 15 ALT 12 Alkaline Phosphatase 60 Lactate Dehydrogenase 185 Total Protein 5.2 L Albumin 3.1 L Globulin 2.1 Albumin/Globulin Ratio 1.5 TSH 0.46 Blood Type Antibody Screen 05/28/19 06:04 WBC RBC Hgb Hct MCV MCH MCHC RDW Plt Count MPV INR (Anticoag Therapy) Sodium Potassium Chloride Carbon Dioxide Anion Gap BUN Creatinine Est GFR ( Amer) Est GFR (Non-Af Amer) BUN/Creatinine Ratio Glucose POC Glucose (mg/dL) Calcium Total Bilirubin Direct Bilirubin Indirect Bilirubin AST ALT Alkaline Phosphatase Lactate Dehydrogenase Total Protein Albumin Globulin Albumin/Globulin Ratio TSH Blood Type A Positive Antibody Screen Negative Assessment: []s/p RTK POD #5 post op colonic ileus Plan: []Encourge minimal narcotic use and ambulation WBAT RLE Will cont to monitor blistering near incision, no signs of infection at this point, likely from skin irritant Medicine managing ileus, patient had large BM this am and seems to be improving Low H&H overnight, hospitalist following DVT prophylaxis with heparin, hold coumadin
[2019-05-28] MEDS: Hydrocodone/Acetamin 10/325 1 TAB PO SCH ×3 (08:50→21:09)
[2019-05-28] MEDS: hydrALAZINE TAB* 25 MG PO SCH ×3 (08:50→20:30)
[2019-05-28] MEDS: Atorvastatin* 20 MG TAB PO SCH (08:51)
[2019-05-28] MEDS: amLODIPine TAB* 5 MG PO SCH (08:51)
[2019-05-28] MEDS: DULoxetine DR CAP* 20 MG CAP.DR PO SCH (08:51)
[2019-05-28] MEDS: Vitamin THERAPEUTIC TAB PO SCH (08:51)
[2019-05-28] MEDS: Carvedilol TAB* 25 MG PO SCH ×2 (08:51→20:30)
[2019-05-28] MEDS: Lisinopril TAB* 10 MG PO SCH (08:51)
[2019-05-28] MEDS: Pregabalin CAP(*) 100 MG PO SCH ×3 (08:51→20:32)
[2019-05-28] MEDS: Isosorbide Mononitrate ER TAB* 30 MG PO SCH (08:52)
[2019-05-28] MEDS: Polyethylene Glycol 3350* 17 GM PACKET PO SCH ×2 (08:54→21:19)
[2019-05-28] MEDS: Docusate CAP* 100 MG PO SCH ×2 (08:54→21:19)
[2019-05-28] MEDS: Insulin GLARGINE(*) 1 UNITS UNIT SUBCUT SCH ×2 (09:13→20:32)
[2019-05-28] MEDS: Insulin LISPRO* 1 UNITS UNIT SUBCUT SCH ×6 (09:14→18:13)
[2019-05-28] MEDS: Acetaminophen TAB* 325 MG PO PRN ×2 (09:47→17:53)
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
[2019-05-28] MEDS ORDERED: Warfarin TAB(*) 2.5 MG PO ONE (17:00)
[2019-05-28] MEDS: oxyCODONE TAB* 5 MG TAB PO SCH (20:31)
[2019-05-28] MEDS: traZODone TAB* 50 MG TAB PO PRN (21:13)
[2019-05-29] MEDS: Cyclobenzaprine TAB* 10 MG PO PRN (03:56)
[2019-05-29] MEDS: Acetaminophen TAB* 325 MG PO PRN ×2 (03:56→14:49)
[2019-05-29 05:43] LABS: Hematocrit 18 % (42-52); Hemoglobin 6.1 g/dL (14.0-18.0); Mean Corpuscular HGB Conc 34 g/dL (31-36); Mean Corpuscular Hemoglobin 30 pg (27-31); Mean Corpuscular Volume 88 fL (80-94); Mean Platelet Volume 7.4 fL (7.4-10.4); Platelet Count 248 10^3/uL (150-450); Red Blood Count 2.07 10^6 /uL (4.18-5.48); Red Cell Distribution Width 14 % (10-15); White Blood Count 8.8 10^3/uL (3.5-10.8)
[2019-05-29 05:46] LABS: INR 2.28 (0.82-1.09)
[2019-05-29 05:52] LABS: BUN/Creatinine Ratio 23.3 (8-20); Calcium 7.5 mg/dL (8.6-10.3); EGFR African American 133.1 (>60); Potassium 4.2 mmol/L (3.5-5.0)
[2019-05-29] MEDS: Levothyroxine TAB* 175 MCG TAB PO SCH (06:04)
[2019-05-29 06:27] LABS: ABS Eosinophils 0.2 10^3/ul (0-0.6); ABS Lymphocytes 0.8 10^3/ul (1.0-4.8); ABS Neutrophils 6.7 10^3/ul (1.5-7.7); Eosinophil % 1.8 %; Lymphocyte % 9.5 %; Nucleated Red Blood Cells % 0.2
[2019-05-29] MEDS: Polyethylene Glycol 3350* 17 GM PACKET PO SCH ×2 (07:55→21:07)
[2019-05-29] MEDS: Carvedilol TAB* 25 MG PO SCH ×2 (07:57→21:00)
[2019-05-29] MEDS: Lisinopril TAB* 10 MG PO SCH (07:57)
[2019-05-29] MEDS: Pregabalin CAP(*) 100 MG PO SCH ×3 (07:57→21:01)
[2019-05-29] MEDS: DULoxetine DR CAP* 20 MG CAP.DR PO SCH (07:57)
[2019-05-29] MEDS: Isosorbide Mononitrate ER TAB* 30 MG PO SCH (07:57)
[2019-05-29] MEDS: amLODIPine TAB* 5 MG PO SCH (07:58)
[2019-05-29] MEDS: hydrALAZINE TAB* 25 MG PO SCH ×3 (07:58→21:01)
[2019-05-29] MEDS: Vitamin THERAPEUTIC TAB PO SCH (07:58)
[2019-05-29] MEDS: Atorvastatin* 20 MG TAB PO SCH (07:58)
[2019-05-29] MEDS: Docusate CAP* 100 MG PO SCH ×2 (07:58→21:07)
[2019-05-29] MEDS: Hydrocodone/Acetamin 10/325 1 TAB PO SCH ×4 (08:00→23:30)
--- NOTE | 2019-05-29 08:31 | PN ---
Progress Note - Progress Note Date of Service: 05/29/19 SOAP: Subjective: Pt is doing well. Reports some pain. Denies F/C, CP/SOB or calf pain Objective: PE- 59 y/o WDWN M NAD, A&Ox3 RLE- dressing changed, inc healing well, no change in serous blisters, calf soft NT, +DF/PF ankle, +2 DP pulse, SILT distally Vital Signs Temp Pulse Resp BP Pulse Ox 98.8 F 74 18 166/54 97 05/29/19 07:25 05/29/19 07:25 05/29/19 08:00 05/29/19 07:25 05/29/19 07:25 Laboratory Results - last 24 hr 05/28/19 05/28/19 05/28/19 06:04 08:02 11:50 WBC RBC Hgb Hct MCV MCH MCHC RDW Plt Count MPV Neut % (Auto) Lymph % (Auto) [place] % (Auto) Eos % (Auto) Baso % (Auto) Absolute Neuts (auto) Absolute Lymphs (auto) Absolute Monos (auto) Absolute Eos (auto) Absolute Basos (auto) Absolute Nucleated RBC Nucleated RBC % INR (Anticoag Therapy) Sodium Potassium Chloride Carbon Dioxide Anion Gap BUN Creatinine Est GFR ( Amer) Est GFR (Non-Af Amer) BUN/Creatinine Ratio Glucose POC Glucose (mg/dL) 165 H 159 H Calcium Blood Type A Positive Antibody Screen Negative Crossmatch See Detail 05/28/19 05/28/19 05/29/19 16:31 20:18 05:27 WBC 8.8 RBC 2.07 L Hgb 6.1 L* Hct 18 L MCV 88 MCH 30 MCHC 34 RDW 14 Plt Count 248 MPV 7.4 Neut % (Auto) 77.0 Lymph % (Auto) 9.5 [place] % (Auto) 11.3 Eos % (Auto) 1.8 Baso % (Auto) 0.4 Absolute Neuts (auto) 6.7 Absolute Lymphs (auto) 0.8 L Absolute Monos (auto) 1.0 H Absolute Eos (auto) 0.2 Absolute Basos (auto) 0.0 Absolute Nucleated RBC 0.0 Nucleated RBC % 0.2 INR (Anticoag Therapy) Sodium Potassium Chloride Carbon Dioxide Anion Gap BUN Creatinine Est GFR ( Amer) Est GFR (Non-Af Amer) BUN/Creatinine Ratio Glucose POC Glucose (mg/dL) 170 H 320 H Calcium Blood Type Antibody Screen Crossmatch 05/29/19 05/29/19 05:27 05:27 WBC RBC Hgb Hct MCV MCH MCHC RDW Plt Count MPV Neut % (Auto) Lymph % (Auto) [place] % (Auto) Eos % (Auto) Baso % (Auto) Absolute Neuts (auto) Absolute Lymphs (auto) Absolute Monos (auto) Absolute Eos (auto) Absolute Basos (auto) Absolute Nucleated RBC Nucleated RBC % INR (Anticoag Therapy) 2.28 H Sodium 138 Potassium 4.2 Chloride 107 Carbon Dioxide 26 Anion Gap 5 BUN 17 Creatinine 0.73 Est GFR ( Amer) 133.1 Est GFR (Non-Af Amer) 110.0 BUN/Creatinine Ratio 23.3 H Glucose 208 H POC Glucose (mg/dL) Calcium 7.5 L Blood Type Antibody Screen Crossmatch Assessment: []s/p RTK POD #6 post op colonic ileus acute anemia Plan: []Cont PT/OT with WBAT RLE Incision healing well, will cont to monitor Medicine managing ileus, seems to be improving Encourage decrease narcotic use to prevent ileus from reoccurring Hospitalist managing anemia with transfusion this am DVT prophylaxis with heparin, hold coumadin
[2019-05-29] MEDS: Insulin GLARGINE(*) 1 UNITS UNIT SUBCUT SCH ×2 (09:39→21:03)
[2019-05-29] MEDS: Insulin LISPRO* 1 UNITS UNIT SUBCUT SCH ×6 (09:40→18:18)
[2019-05-29 10:11] LABS: Corrected Retic Count 1.2 % (0.5-1.5); Hematocrit for Retic CNT 18 % (42-52); Immature Retic Fraction 0.59; RBC Retic Count 2.07 10^6/uL (4.18-5.48)
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
[2019-05-29] MEDS ORDERED: Insulin GLARGINE(*) 1 UNITS UNIT SUBCUT ONE (10:20)
[2019-05-29] MEDS ORDERED: Iodixanol* (CONTRAST) 320 MG/ML 100 ML SDV IV ONE (13:45)
[2019-05-29] MEDS: NS 0.9% 1000 ML** 1,000 ML IV SCH (19:01)
[2019-05-29] MEDS: oxyCODONE TAB* 5 MG TAB PO SCH (21:00)
[2019-05-29] MEDS: traZODone TAB* 50 MG TAB PO PRN (21:17)
[2019-05-29] MEDS: Ondansetron INJ* 2 MG/ML VIAL IV PRN (22:53)
[2019-05-30] MEDS: Acetaminophen TAB* 325 MG PO PRN ×2 (02:01→09:51)
[2019-05-30] MEDS: Hydrocodone/Acetamin 10/325 1 TAB PO SCH ×4 (05:28→23:20)
[2019-05-30 05:59] LABS: Hematocrit 25 % (42-52); Hemoglobin 8.5 g/dL (14.0-18.0); Mean Corpuscular HGB Conc 35 g/dL (31-36); Mean Corpuscular Hemoglobin 30 pg (27-31); Mean Corpuscular Volume 85 fL (80-94); Mean Platelet Volume 7.5 fL (7.4-10.4); Platelet Count 269 10^3/uL (150-450); Red Blood Count 2.88 10^6 /uL (4.18-5.48); Red Cell Distribution Width 15 % (10-15); White Blood Count 10.3 10^3/uL (3.5-10.8)
[2019-05-30] MEDS: Levothyroxine TAB* 175 MCG TAB PO SCH (06:04)
[2019-05-30 07:20] LABS: ABS Eosinophils 0.2 10^3/ul (0-0.6); ABS Lymphocytes 1.2 10^3/ul (1.0-4.8); ABS Monocytes 1.3 10^3/ul (0-0.8); ABS Neutrophils 7.6 10^3/ul (1.5-7.7); Eosinophil % 1.7 %; Lymphocyte % 11.5 %; Nucleated Red Blood Cells % 0.2
[2019-05-30 07:24] LABS: Polychromasia 1+
--- NOTE | 2019-05-30 08:19 | PN ---
Progress Note - Progress Note Date of Service: 05/30/19 SOAP: Subjective: Pt is doing well. Continued pain but sleeping better. He has more energy after transfusion. Denies Cp/SOB, calf pain or F/C. Objective: PE- 59 y/o WDWN M NAD RLE- dressing changed, inc c/d/i with no sign or infxn, blisters unchanged, calf soft NT, +2 Dp pulse, SILT distally Vital Signs Temp Pulse Resp BP Pulse Ox 98.9 F 85 16 155/57 98 05/30/19 07:23 05/30/19 07:23 05/30/19 08:01 05/30/19 07:23 05/30/19 07:59 Laboratory Results - last 24 hr 05/28/19 05/29/19 05/29/19 06:04 05:27 07:10 WBC 8.8 RBC 2.07 L RBC (Retic) 2.07 L Hgb 6.1 L* Hct 18 L HCT (Retic) 18 L MCV 88 MCH 30 MCHC 34 RDW 14 Plt Count 248 MPV 7.4 Neut % (Auto) 77.0 Lymph % (Auto) 9.5 [place] % (Auto) 11.3 Eos % (Auto) 1.8 Baso % (Auto) 0.4 Absolute Neuts (auto) 6.7 Absolute Lymphs (auto) 0.8 L Absolute Monos (auto) 1.0 H Absolute Eos (auto) 0.2 Absolute Basos (auto) 0.0 Absolute Nucleated RBC 0.0 Immature Gran % Neutrophils % Band Neutrophils % Lymphocytes % Reactive Lymphs % Monocytes % Eosinophils % Metamyelocytes % Myelocytes % Nucleated RBC % 0.2 Nucleated RBCs/100 WBC Normal RBC Morphology Polychromasia Anisocytosis Retic Count, Calc 3.1 H Corrected Retic Count 1.2 Retic Shift Factor 2.5 Retic Production Index 0.50 Immature Retic Fraction 0.59 Mean Retic Volume 101.4 POC Glucose (mg/dL) 262 H Blood Type A Positive Antibody Screen Negative Crossmatch See Detail 05/29/19 05/29/19 05/30/19 12:16 17:02 05:43 WBC 10.3 RBC 2.88 L RBC (Retic) Hgb 8.5 L Hct 25 L HCT (Retic) MCV 85 MCH 30 MCHC 35 RDW 15 Plt Count 269 MPV 7.5 Neut % (Auto) 74.0 Lymph % (Auto) 11.5 [place] % (Auto) 12.5 Eos % (Auto) 1.7 Baso % (Auto) 0.3 Absolute Neuts (auto) 7.6 Absolute Lymphs (auto) 1.2 Absolute Monos (auto) 1.3 H Absolute Eos (auto) 0.2 Absolute Basos (auto) 0.0 Absolute Nucleated RBC 0.0 Immature Gran % 10.0 H Neutrophils % 74.0 Band Neutrophils % 2.0 Lymphocytes % 7.0 Reactive Lymphs % 1.0 Monocytes % 6.0 Eosinophils % 2.0 Metamyelocytes % 3.0 H Myelocytes % 5.0 H Nucleated RBC % 0.2 Nucleated RBCs/100 WBC 3.0 H Normal RBC Morphology Not Reportable Polychromasia 1+ Anisocytosis 1+ Retic Count, Calc Corrected Retic Count Retic Shift Factor Retic Production Index Immature Retic Fraction Mean Retic Volume POC Glucose (mg/dL) 239 H 239 H Blood Type Antibody Screen Crossmatch 05/30/19 07:37 WBC RBC RBC (Retic) Hgb Hct HCT (Retic) MCV MCH MCHC RDW Plt Count MPV Neut % (Auto) Lymph % (Auto) [place] % (Auto) Eos % (Auto) Baso % (Auto) Absolute Neuts (auto) Absolute Lymphs (auto) Absolute Monos (auto) Absolute Eos (auto) Absolute Basos (auto) Absolute Nucleated RBC Immature Gran % Neutrophils % Band Neutrophils % Lymphocytes % Reactive Lymphs % Monocytes % Eosinophils % Metamyelocytes % Myelocytes % Nucleated RBC % Nucleated RBCs/100 WBC Normal RBC Morphology Polychromasia Anisocytosis Retic Count, Calc Corrected Retic Count Retic Shift Factor Retic Production Index Immature Retic Fraction Mean Retic Volume POC Glucose (mg/dL) 169 H Blood Type Antibody Screen Crossmatch Assessment: []s/p RTK POD #7 post op colonic ileus anemia Plan: []Cont PT/OT with WBAT RLE Incision healing well, will cont to monitor Medicine managing ileus, seems to be improving Encourage decrease narcotic use to prevent ileus from reoccurring Hospitalist managing anemia improved with transfusion DVT prophylaxis with heparin and coumadin appreciate hosp input
[2019-05-30] MEDS: Docusate CAP* 100 MG PO SCH ×2 (09:51→21:14)
[2019-05-30] MEDS: amLODIPine TAB* 5 MG PO SCH (09:51)
[2019-05-30] MEDS: Atorvastatin* 20 MG TAB PO SCH (09:51)
[2019-05-30] MEDS: Vitamin THERAPEUTIC TAB PO SCH (09:52)
[2019-05-30] MEDS: hydrALAZINE TAB* 25 MG PO SCH ×3 (09:52→21:14)
[2019-05-30] MEDS: Pregabalin CAP(*) 100 MG PO SCH ×3 (09:52→21:14)
[2019-05-30] MEDS: Carvedilol TAB* 25 MG PO SCH ×2 (09:53→21:14)
[2019-05-30] MEDS: Isosorbide Mononitrate ER TAB* 30 MG PO SCH (09:53)
[2019-05-30] MEDS: Lisinopril TAB* 10 MG PO SCH (09:53)
[2019-05-30] MEDS: Insulin LISPRO* 1 UNITS UNIT SUBCUT SCH ×6 (09:53→18:17)
[2019-05-30] MEDS: Insulin GLARGINE(*) 1 UNITS UNIT SUBCUT SCH ×2 (09:54→21:13)
[2019-05-30 09:55] LABS: Hematocrit 24 % (42-52); Mean Corpuscular HGB Conc 33 g/dL (31-36); Mean Corpuscular Hemoglobin 28 pg (27-31); Mean Corpuscular Volume 85 fL (80-94); Mean Platelet Volume 7.3 fL (7.4-10.4); Platelet Count 271 10^3/uL (150-450); Red Cell Distribution Width 16 % (10-15); White Blood Count 10.3 10^3/uL (3.5-10.8)
[2019-05-30] MEDS: DULoxetine DR CAP* 20 MG CAP.DR PO SCH (09:55)
[2019-05-30] MEDS: Polyethylene Glycol 3350* 17 GM PACKET PO SCH ×2 (09:56→21:38)
[2019-05-30 10:14] LABS: ABS Eosinophils 0.2 10^3/ul (0-0.6); ABS Lymphocytes 0.9 10^3/ul (1.0-4.8); ABS Monocytes 1.1 10^3/ul (0-0.8); ABS Neutrophils 8.1 10^3/ul (1.5-7.7); ABS Nucleated RBC 0.1 10^3/ul; Eosinophil % 1.6 %; Lymphocyte % 8.5 %; Nucleated Red Blood Cells % 0.6
[2019-05-30] MEDS ORDERED: Temazepam CAP* 15 MG PO PRN (10:24)
--- NOTE | 2019-05-30 12:00 | PN ---
"Progress Note - Progress Note Date of Service: 05/30/19 Note: Search Terms: jesse berman, 1960 Search Date: 05/30/2019 11:53:18 AM The Drug Utilization Report below displays all of the controlled substance prescriptions, if any, that your patient has filled in the last twelve months. The information displayed on this report is compiled from pharmacy submissions to the Department, and accurately reflects the information as submitted by the pharmacies. This report was requested by: Zeferino Blank | Reference #: [id number] Others' Prescriptions Patient Name: Jesse Berman Date: 1960 Address: [address] [facility] [address] [place] [address] Sex: Male Rx Written Rx Dispensed Drug Quantity Days Supply Prescriber Name 05/25/2019 05/26/2019 hydrocodone-acetaminophen 10-325 mg tablet 120 30 Amanda Sanchez MD 05/02/2019 05/04/2019 androgel 1.62% gel pump 2gm 30 Serafin, Katharine 04/22/2019 04/28/2019 hydrocodone-acetaminophen 10-325 mg tablet 90 30 Amanda Sanchez MD 03/30/2019 03/30/2019 hydrocodone-acetaminophen 10-325 mg tablet 90 30 SerafinKatharine mills 10/06/2018 03/29/2019 androgel 1.62% gel pump 2gm 30 HerculesCarmenza Vazquez MD 10/06/2018 02/25/2019 andmarioel 1.62% gel pump 2gm 30 HerculesCarmenza Vazquez MD 02/23/2019 02/25/2019 hydrocodone-acetaminophen 10-325 mg tablet 90 30 Amanda Sanchez MD 01/24/2019 01/27/2019 hydrocodone-acetaminophen 10-325 mg tablet 90 30 Amanda Sanchez MD 12/28/2018 12/29/2018 hydrocodone-acetaminophen 10-325 mg tablet 90 30 Amanda Sanchez MD 10/06/2018 11/30/2018 andmarioel 1.62% gel pump 2gm 30 HerculesCarmenza Vazquez MD 11/23/2018 11/26/2018 hydrocodone-acetaminophen 10-325 mg tablet 90 30 Amanda Sanchez MD 10/25/2018 10/29/2018 hydrocodone-acetaminophen 10-325 mg tablet 90 30 Amanda Sanchez MD 10/06/2018 10/07/2018 androgel 1.62% gel pump 2gm 30 Carmenza Trevino MD 09/30/2018 09/30/2018 hydrocodone-acetaminophen 10-325 mg tablet 90 30 Amanda Sanchez MD 09/03/2018 09/06/2018 hydrocodone-acetaminophen 10-325 mg tablet 45 15 Amanda Sanchez MD 08/31/2018 08/31/2018 hydrocodone-acetaminophen 10-325 mg tablet 21 7 Amanda Sanchez MD 08/03/2018 08/05/2018 oxycodone hcl 10 mg tablet 180 30 Amanda Sanchez MD 07/20/2018 07/20/2018 oxycodone hcl er 20 mg tablet 90 30 Amanda Sanchez MD 06/30/2018 07/01/2018 oxycodone hcl 5 mg tablet 240 30 Amanda Sanchez MD 06/24/2018 06/25/2018 androgel 1.62% gel pump 3gm 30 Loki Sanchez MD 06/18/2018 06/23/2018 oxycodone hcl er 20 mg tablet 90 30 Loki Sanchez MD Patient Name: Jesse Berman Date: 1960 Address: [address] [place] [address] [address] [place] [address] Sex: Male Rx Written Rx Dispensed Drug Quantity Days Supply Prescriber Name 05/03/2019 05/03/2019 oxycodone hcl 5 mg tablet 32 16 Uri Zafar MD 04/22/2019 04/22/2019 oxycodone hcl 5 mg tablet 30 15 Uri Zafar MD 12/14/2018 01/14/2019 lyrica 100 mg capsule 180 30 Eddie Mckeon 12/14/2018 12/14/2018 lyrica 100 mg capsule 180 30 Eddie Mckeon 09/09/2018 09/09/2018 oxycodone hcl er 10 mg tablet 10 4 Trey Michel 09/09/2018 09/09/2018 oxycodone hcl 5 mg tablet 12 3 Trey Michel 09/09/2018 09/09/2018 lyrica 200 mg capsule 90 30 Trey Michel 08/09/2018 08/09/2018 alprazolam 0.5 mg tablet 30 10 Dk Uribe Jr, MD 07/31/2018 07/31/2018 oxycodone hcl 5 mg tablet 54 3 Rosa, Pastora S 07/17/2018 07/23/2018 oxycodone hcl er 20 mg tablet 60 20 Dk Uribe Jr, MD Patient Name: Jesse Berman Jr Date: 1960 Address: [address] [place] [address] [address] [place] [address] Sex: Male Rx Written Rx Dispensed Drug Quantity Days Supply Prescriber Name 04/13/2019 04/20/2019 lyrica 300 mg capsule 180 90 Eddie Mckeon 01/24/2019 01/31/2019 lyrica 300 mg capsule 180 90 Eddie Mckeon 10/11/2018 11/18/2018 lyrica 100 mg capsule 120 30 Delmer Camejo M, MD 10/11/2018 10/15/2018 lyrica 100 mg capsule 120 30 Delmer Camejo M, MD 06/09/2018 08/05/2018 lyrica 100 mg capsule 120 30 Delmer Camejo M, MD 06/09/2018 06/23/2018 lyrica 100 mg capsule 120 30 Delmer Camejo M, MD"
[2019-05-30 16:27] LABS: Hematocrit 24 % (42-52); Mean Corpuscular HGB Conc 34 g/dL (31-36); Mean Corpuscular Hemoglobin 29 pg (27-31); Mean Corpuscular Volume 85 fL (80-94); Mean Platelet Volume 7.6 fL (7.4-10.4); Platelet Count 285 10^3/uL (150-450); Red Blood Count 2.76 10^6 /uL (4.18-5.48); Red Cell Distribution Width 16 % (10-15); White Blood Count 11.7 10^3/uL (3.5-10.8)
[2019-05-30 16:33] LABS: INR 1.64 (0.82-1.09)
[2019-05-30 17:04] LABS: ABS Eosinophils 0.2 10^3/ul (0-0.6); ABS Lymphocytes 1.2 10^3/ul (1.0-4.8); ABS Monocytes 1.3 10^3/ul (0-0.8); ABS Nucleated RBC 0.1 10^3/ul; Eosinophil % 1.5 %; Nucleated Red Blood Cells % 0.5
[2019-05-30] MEDS ORDERED: HYDROmorphone INJ1* 1 MG/ML SYRINGE IM ONE (17:25)
[2019-05-30] MEDS ORDERED: Warfarin TAB(*) 3 MG PO ONE (18:00)
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
[2019-05-30] MEDS: oxyCODONE TAB* 5 MG TAB PO SCH (21:13)
[2019-05-31] MEDS: Acetaminophen TAB* 325 MG PO PRN ×2 (04:31→13:49)
[2019-05-31 05:08] LABS: Hematocrit 26 % (42-52); Hemoglobin 8.5 g/dL (14.0-18.0); Mean Corpuscular HGB Conc 33 g/dL (31-36); Mean Corpuscular Hemoglobin 28 pg (27-31); Mean Corpuscular Volume 86 fL (80-94); Mean Platelet Volume 7.2 fL (7.4-10.4); Platelet Count 336 10^3/uL (150-450); Red Cell Distribution Width 15 % (10-15); White Blood Count 12.9 10^3/uL (3.5-10.8)
[2019-05-31] MEDS: Hydrocodone/Acetamin 10/325 1 TAB PO SCH ×2 (05:13→11:14)
[2019-05-31] MEDS: Levothyroxine TAB* 175 MCG TAB PO SCH (05:14)
[2019-05-31 05:24] LABS: BUN/Creatinine Ratio 11.2 (8-20); Calcium 8.4 mg/dL (8.6-10.3); EGFR African American 105.9 (>60); EGFR Non-African American 87.5 (>60); Potassium 4.8 mmol/L (3.5-5.0)
[2019-05-31 06:05] LABS: ABS Eosinophils 0.2 10^3/ul (0-0.6); ABS Lymphocytes 1.5 10^3/ul (1.0-4.8); ABS Monocytes 1.6 10^3/ul (0-0.8); ABS Neutrophils 9.6 10^3/ul (1.5-7.7); Eosinophil % 1.4 %; Lymphocyte % 11.4 %; Nucleated Red Blood Cells % 0.3; Polychromasia 1+
[2019-05-31] MEDS: hydrALAZINE TAB* 25 MG PO SCH ×2 (08:52→13:49)
[2019-05-31] MEDS: Docusate CAP* 100 MG PO SCH (08:52)
[2019-05-31] MEDS: Lisinopril TAB* 10 MG PO SCH (08:52)
[2019-05-31] MEDS: Isosorbide Mononitrate ER TAB* 30 MG PO SCH (08:52)
[2019-05-31] MEDS: Pregabalin CAP(*) 100 MG PO SCH ×2 (08:53→13:49)
[2019-05-31] MEDS: Carvedilol TAB* 25 MG PO SCH (08:53)
[2019-05-31] MEDS: amLODIPine TAB* 5 MG PO SCH (08:53)
[2019-05-31] MEDS: Atorvastatin* 20 MG TAB PO SCH (08:53)
[2019-05-31] MEDS: Vitamin THERAPEUTIC TAB PO SCH (08:54)
[2019-05-31] MEDS: Insulin GLARGINE(*) 1 UNITS UNIT SUBCUT SCH (08:55)
[2019-05-31] MEDS: Insulin LISPRO* 1 UNITS UNIT SUBCUT SCH ×4 (08:55→13:49)
[2019-05-31] MEDS: Polyethylene Glycol 3350* 17 GM PACKET PO SCH (08:56)
[2019-05-31] MEDS: DULoxetine DR CAP* 20 MG CAP.DR PO SCH (09:00)
[2019-05-31 09:51] LABS: % Iron Saturation 8 % (15-55); Iron 24 ug/dL (50-212); Total Iron Binding Capacity 290 mcg/dL (250-450); Transferrin 207 mg/dL (203-362)
[2019-05-31 10:07] LABS: Ferritin 157.6 ng/mL (24-336)
[2019-05-31] MEDS ORDERED: Lidocaine 2% 10 ML* VIAL INJ ONE (11:42)
--- NOTE | 2019-05-31 12:12 | PN ---
Progress Note - Progress Note Date of Service: 05/31/19 SOAP: Subjective: []Pt seen OOB in chair. He denies CP, SOB, dizziness. He has been having bowel movements without any obvious bloody or black appearance. He has no abdominal pain and no nausea. He is tolerating food and beverage well. Heme/onc has been consulted and will have a bone marrow biopsy today. Objective: []Gen: Appears well, NAD RLE: Right knee dressing changed, incision CDI. Superficial serous filled bullae remains medially without any surrounding erythema, does not communicate with incision. Thigh soft, DF/PF intact, DP2+, sensation intact to light touch distally, DP2+. Calves supple and nontender without erythema or edema Abdomen is soft and nontender without guarding or rigidity Assessment: []s/p RTK POD #8 post op colonic ileus anemia Plan: []Cont PT/OT with WBAT RLE Incision healing well Medicine managing ileus, okay for DC Minimize narcotic use to prevent ileus from reoccurring, discussed again with patient prior to DC Hospitalist managing anemia improved with transfusion - hematology saw today as well and failed attempt at bone marrow biopsy. Repeat on Sunday 06/03 at 8 am DVT prophylaxis coumadin. Discussed subtherapeutic INR with hematology, will give one dose of lovenox prior to DC Vital Signs Temp 98.3 F 05/31/19 12:54 Pulse 71 05/31/19 12:54 Resp 16 05/31/19 12:54 BP 137/54 05/31/19 12:54 Pulse Ox 96 05/31/19 12:54 Intake & Output 05/30/19 05/31/19 05/31/19 18:59 06:59 18:59 Intake Total 1295 900 Output Total 1100 3120 700 Balance 195 -2220 -700 Intake: IV Fluids 455 NS (0.9%) 455 Oral 840 900 Output: Urine 1100 3120 700 Laboratory Last Values WBC 12.9 10^3/uL (3.5-10.8) H 05/31/19 04:56 RBC 3.00 10^6 /uL (4.18-5.48) L 05/31/19 04:56 RBC (Retic) 2.07 10^6/uL (4.18-5.48) L 05/29/19 05:27 Hgb 8.5 g/dL (14.0-18.0) L 05/31/19 04:56 Hct 26 % (42-52) L 05/31/19 04:56 HCT (Retic) 18 % (42-52) L 05/29/19 05:27 MCV 86 fL (80-94) 05/31/19 04:56 MCH 28 pg (27-31) 05/31/19 04:56 MCHC 33 g/dL (31-36) 05/31/19 04:56 RDW 15 % (10-15) 05/31/19 04:56 Plt Count 336 10^3/uL (150-450) 05/31/19 04:56 MPV 7.2 fL (7.4-10.4) L 05/31/19 04:56 Neut % (Auto) 74.6 % 05/31/19 04:56 Lymph % (Auto) 11.4 % 05/31/19 04:56 [place] % (Auto) 12.3 % 05/31/19 04:56 Eos % (Auto) 1.4 % 05/31/19 04:56 Baso % (Auto) 0.3 % 05/31/19 04:56 Absolute Neuts (auto) 9.6 10^3/ul (1.5-7.7) H 05/31/19 04:56 Absolute Lymphs (auto) 1.5 10^3/ul (1.0-4.8) 05/31/19 04:56 Absolute Monos (auto) 1.6 10^3/ul (0-0.8) H 05/31/19 04:56 Absolute Eos (auto) 0.2 10^3/ul (0-0.6) 05/31/19 04:56 Absolute Basos (auto) 0.0 10^3/ul (0-0.2) 05/31/19 04:56 Absolute Nucleated RBC 0.0 10^3/ul 05/31/19 04:56 Immature Gran % 9.0 % (0-9) 05/31/19 04:56 Neutrophils % 73.0 % 05/31/19 04:56 Band Neutrophils % 7.0 % (0-8) 05/31/19 04:56 Lymphocytes % 6.0 % 05/31/19 04:56 Reactive Lymphs % 1.0 % (0-6) 05/30/19 05:43 Monocytes % 10.0 % 05/31/19 04:56 Eosinophils % 2.0 % 05/31/19 04:56 Basophils % 1.0 % 05/30/19 09:48 Metamyelocytes % 1.0 % (0-2) 05/31/19 04:56 Myelocytes % 1.0 % (0-1) 05/31/19 04:56 Nucleated RBC % 0.3 05/31/19 04:56 Nucleated RBCs/100 WBC 2.0 (0-0) H 05/31/19 04:56 Normal RBC Morphology Not Reportable 05/31/19 04:56 Polychromasia 1+ 05/31/19 04:56 Anisocytosis 1+ 05/30/19 16:20 Retic Count, Calc 3.1 % (0.5-1.5) H 05/29/19 05:27 Corrected Retic Count 1.2 % (0.5-1.5) 05/29/19 05:27 Retic Shift Factor 2.5 05/29/19 05:27 Retic Production Index 0.50 05/29/19 05:27 Immature Retic Fraction 0.59 05/29/19 05:27 Mean Retic Volume 101.4 05/29/19 05:27 Hem Pathologist Commnt 05/30/19 09:48 INR (Anticoag Therapy) 1.64 (0.82-1.09) H 05/30/19 16:20 Sodium 136 mmol/L (135-145) 05/31/19 04:56 Potassium 4.8 mmol/L (3.5-5.0) 05/31/19 04:56 Chloride 101 mmol/L (101-111) 05/31/19 04:56 Carbon Dioxide 27 mmol/L (22-32) 05/31/19 04:56 Anion Gap 8 mmol/L (2-11) 05/31/19 04:56 BUN 10 mg/dL (6-24) 05/31/19 04:56 Creatinine 0.89 mg/dL (0.67-1.17) 05/31/19 04:56 Est GFR ( Amer) 105.9 (>60) 05/31/19 04:56 Est GFR (Non-Af Amer) 87.5 (>60) 05/31/19 04:56 BUN/Creatinine Ratio 11.2 (8-20) 05/31/19 04:56 Glucose 160 mg/dL (70-100) H 05/31/19 04:56 POC Glucose (mg/dL) 176 mg/dL (70-100) H 05/31/19 11:26 Serum Osmolality 280 mOsm/kg (275-295) 05/26/19 14:47 Lactic Acid 1.5 mmol/L (0.5-2.0) 05/26/19 14:47 Calcium 8.4 mg/dL (8.6-10.3) L 05/31/19 04:56 Iron 24 ug/dL (50-212) L 05/31/19 09:04 TIBC 290 mcg/dL (250-450) 05/31/19 09:04 % Saturation 8 % (15-55) L 05/31/19 09:04 Unsat Iron Binding < 275 ug/dL 05/31/19 09:04 Transferrin 207 mg/dL (203-362) 05/31/19 09:04 Ferritin 157.6 ng/mL (24-336) 05/31/19 09:04 Total Bilirubin 0.40 mg/dL (0.2-1.0) 05/28/19 04:36 Direct Bilirubin 0.20 mg/dL (0.03-0.18) H 05/28/19 04:36 Indirect Bilirubin 0.2 mg/dL (0.3-1.0) L 05/28/19 04:36 AST 15 U/L (13-39) 05/28/19 04:36 ALT 12 U/L (7-52) 05/28/19 04:36 Alkaline Phosphatase 60 U/L (34-104) 05/28/19 04:36 Lactate Dehydrogenase 185 U/L (140-271) 05/28/19 04:36 Total Protein 5.2 g/dL (6.4-8.9) L 05/28/19 04:36 Albumin 3.1 g/dL (3.2-5.2) L 05/28/19 04:36 Globulin 2.1 g/dL (2-4) 05/28/19 04:36 Albumin/Globulin Ratio 1.5 (1-3) 05/28/19 04:36 TSH 0.46 mcIU/mL (0.34-5.60) 05/28/19 04:36 Urine Osmolality 407 mOsm/kg (100-1150) 05/26/19 12:20 U Sodium Concentration < 18 mmol/L 05/26/19 12:20 Blood Type A Positive 05/28/19 06:04 Antibody Screen Negative 05/28/19 06:04 Crossmatch See Detail 05/28/19 06:04
--- NOTE | 2019-05-31 12:20 | BRIEFOPN ---
Brief Operative/Procedure Note - Operation Details Pre-Op Diagnosis: Anemia and leukocytosis Post-Op Diagnosis: Anemia and leukocytosis Procedures: Bone marrow biopsy and aspirate Surgeon(s)/Proceduralists: NP. Dr. Gale Hernandez attending Anesthesia: lidocaine 2%, 10 mLs Estimated Blood Loss: scant. Findings: Unsuccesful aatempt x1 - aspiration and biopsy to left posterior superior iliac crest due to patient pain from right leg. Pt. unwilling to continue procedure. Specimen(s)/Culture(s) Description: clot, aspirate without spicules Complications: none.
[2019-05-31 12:56] VITALS: BP 137/54
[2019-05-31] MEDS ORDERED: Enoxaparin(*) 40 MG/0.4 ML SYR SUBCUT SCH (13:00)
--- NOTE | 2019-05-31 16:10 | DS ---
Orthopedic Discharge Summary - Discharge Summary Date of Admission:05/23/19 Date of Discharge: 05/31/19 Date of Surgery: 05/23/19 Attending Orthopedic Provider: Dr Zafar Pre-operative Diagnosis: right knee osteoarthritis Operative Procedure: right total knee arthroplasty Disposition of Patient: home Condition of Patient: stable History: JEROME BENJAMIN is a 59 year old M with years of increasingly severe right knee pain. Patient has failed conservative management and has elected to undergo a right total knee replacement Hospital Course: JEROME was admitted to [facility] on 05/23/19. Patient underwent a right total knee arthroplasty without complication followed by a brief recovery in PACU and transfer to the Short Stay Surgical Unit in stable condition. Our hospitalist service, GI, hematology, physical therapy also participated in this patients care. Post-op day 1: patient was alert and in no acute distress. Dressing was clean, dry and intact. Operative extremity dorsiflexion and plantarflexion intact, sensation intact to light touch distally , DP2+. Post-op day two: dressing was changed, incision was clean, dry and intact. He developed a post op ileus, hospitalist and GI service managed this condition. On 05/29 received 2 units pRBC for anemia with no known bleeding or hemolysis. He was seen by hematology and a bone marrow biopsy attempted. He will need to have a repeat bone marrow biopsy on thursday with Dr Beasley. Patient was deemed to be medically and orthopedically stable for discharge. Physical therapy goals were met. Home Medications Medication Instructions Recorded Confirmed Type DULoxetine DR CAP* [Cymbalta CAP*] 40 mg PO QAM 03/25/13 05/23/19 History Levothyroxine TAB* [Synthroid 75 175 mcg PO QAM 02/28/18 05/23/19 History MCG TAB*] Simvastatin (NF) [Zocor (NF)] 40 mg PO QAM 02/28/18 05/23/19 History glipiZIDE TAB* [Glucotrol TAB*] 10 mg PO BID 02/28/18 05/23/19 History metFORMIN* [Glucophage 1000 MG TAB 1,000 mg PO BID 02/28/18 05/23/19 History *] Docusate CAP* [Colace Cap*] 100 mg PO BID cap 03/04/18 05/23/19 Rx Promethazine TAB* [Phenergan Tab*] 12.5 mg PO Q6H PRN 07/06/18 05/23/19 History Capsaicin [Capzasin-Hp] 0.1 % TOPICAL TID PRN 09/03/18 05/23/19 History Carvedilol TAB* [Coreg TAB*] 25 mg PO BID 09/03/18 05/23/19 History Isosorbide Mononitrate ER TAB* 30 mg PO QAM 09/03/18 05/23/19 History [Imdur ER TAB*] Lisinopril TAB* [Prinivil TAB 10 20 mg PO QAM 09/03/18 05/23/19 History MG*] Naloxone Nasal [place]* [Narcan 4 mg BOTH NARES ONCE PRN 09/03/18 05/23/19 History Nasal [place]] Pioglitazone HCl [Actos] 15 mg PO QAM 09/03/18 05/23/19 History amLODIPine TAB* [Norvasc 5 mg TAB*] 10 mg PO QAM 09/03/18 05/23/19 History hydrALAZINE TAB* [Apresoline TAB*] 50 mg PO TID 09/03/18 05/23/19 History Pregabalin CAP(*) [Lyrica CAP(*)] 200 mg PO TID #90 cap MDD 3 09/09/18 05/23/19 Rx Acetaminophen TAB* [Tylenol TAB*] 975 mg PO 0900,2100 PRN 05/18/19 05/23/19 History Alogliptin (NF) [Nesina (NF)] 25 mg PO QAM 05/18/19 05/23/19 History Aspirin EC TAB* [Ecotrin EC Low 81 mg PO QAM 05/18/19 05/23/19 History Dose 81 MG*] Hydrocodone/Acetaminophen 1 tab PO TID 05/18/19 05/23/19 History [Hydrocodone-Acetamin 10-325 mg] Acetaminophen TAB* [Tylenol TAB*] 650 mg PO Q8H PRN tab 05/25/19 Rx Docusate CAP* [Colace Cap*] 100 mg PO BID cap 05/25/19 Rx oxyCODONE TAB* [Roxycodone TAB 5 10 mg PO Q4H PRN tab 05/25/19 Rx mg*] Polyethylene Glycol 3350* 34 gm PO 0800,2100 packet 05/30/19 Rx [Miralax*] Temazepam CAP* [Restoril CAP*] 15 mg PO BEDTIME PRN #10 cap MDD 1 05/30/19 Rx oxyCODONE TAB* [Roxycodone TAB 5 5 mg PO BEDTIME #10 tab MDD 1 05/30/19 Rx mg*] Warfarin TAB(*) [Coumadin TAB(*)] 2 mg PO DAILY #90 tab 05/31/19 Rx Discharge Instructions following Orthopedic Surgery: Activity: * Weight Bearing as tolerated * Continue physical therapy and occupational therapy exercises as shown * Home physical therapy Wound care: * OK to shower on post-op day 3, no bathing, swimming, or submerging wound. * Use gentle soap, pat dry. Cover with gauze, VISH wrap and tape. * Nursing to remove ari 2 weeks post op Call Orthopedic office for: * Increased drainage * Redness * Increased pain * Fever Go to ER with shortness of breath or chest pain. Diet: * Soft low residue diet until follow up with PCP. Make appt to follow up regarding ileus within 1 week * Increase fluids to prevent constipation. * Continue to use stool softeners, call your PCP office right away if no bowel motion within 48 hours, any abdominal distention, any abdominal pain. * Medications See Home Medication List in your packet for medications that you should take after discharge. DVT Prophylaxis: Coumadin Dosing: Medication increases bleeding tendency. * Please note that you have been given 2 mg tablets. * Visiting home nurse to draw blood work for INR on Thursday and . * You will be provided with dose instructions on Mondays and . * If you do not receive dosing instruction on dosing, please call our office right away. Please isak dosing instructions on your calendar as they are provided to you. * Dosin mg 05/31 and 06/01. Recheck INR on 06/02 for further dosing instructions. Call orthopedic office if you do not receive dosing instructions. Repeat CBC w dif at first INR draw. You have an appointment for bone marrow biopsy with Dr Beasley Hematology 06/03 at 8 am. Please arrive 10 minutes early to allow for check in. Pain Control: You have been given oxycodone 5 mg tabs. use sparingly. hold for sedation. wean off as soon as pain allows. Antibiotics are required prior to any dental work. FOLLOW UP: Follow up with Dr. Zafar 4 weeks post op, call for appointment Please call our office with any questions or concerns ([phone])
== END 2019-05-31 14:25 | disposition home health service (06) | DRG 470 ==
LOC: OR 06:16 → SSU 11:41
PROVIDERS: ADMIT Orthopaedic Surgery; ATTEND Orthopaedic Surgery
PROC: 0SRC0J9 Replacement of Right Knee Joint with Synthetic Substitute, Cemented, Open Approach (ICD-10-PCS; principal; 2019-05-23 08:15)
PROC: 30233N1 Transfusion of Nonautologous Red Blood Cells into Peripheral Vein, Percutaneous Approach (ICD-10-PCS; 2019-05-29)
PROC: 07JT3ZZ Inspection of Bone Marrow, Percutaneous Approach (ICD-10-PCS; 2019-05-31)
DX: M17.11 Unilateral primary osteoarthritis, right knee (principal); K91.89 Other postprocedural complications and disorders of digestive system; K56.7 Ileus, unspecified; G91.9 Hydrocephalus, unspecified; E87.1 Hypo-osmolality and hyponatremia; N17.9 Acute kidney failure, unspecified; M25.761 Osteophyte, right knee; E11.9 Type 2 diabetes mellitus without complications; I10 Essential (primary) hypertension; E78.5 Hyperlipidemia, unspecified; D55.0 Anemia due to glucose-6-phosphate dehydrogenase [G6PD] deficiency; E66.9 Obesity, unspecified; E03.9 Hypothyroidism, unspecified; G47.33 Obstructive sleep apnea (adult) (pediatric); D64.9 Anemia, unspecified; R23.8 Other skin changes; F32.9 Major depressive disorder, single episode, unspecified; Z68.35 Body mass index [BMI] 35.0-35.9, adult; Z99.89 Dependence on other enabling machines and devices; Z98.2 Presence of cerebrospinal fluid drainage device; Z87.820 Personal history of traumatic brain injury; Z79.84 Long term (current) use of oral hypoglycemic drugs; Z79.1 Long term (current) use of non-steroidal anti-inflammatories (NSAID); Z79.82 Long term (current) use of aspirin; Z79.899 Other long term (current) drug therapy; Z88.6 Allergy status to analgesic agent; Z88.0 Allergy status to penicillin; Z88.2 Allergy status to sulfonamides; Z88.8 Allergy status to other drugs, medicaments and biological substances; Z91.048 Other nonmedicinal substance allergy status; Z80.1 Family history of malignant neoplasm of trachea, bronchus and lung; Z80.0 Family history of malignant neoplasm of digestive organs; Z83.3 Family history of diabetes mellitus
CPT/HCPCS: 36415; 74018; 74176; 74177; 80048; 80076; 82728; 83540; 83550; 83605; 83615; 83930; 83935; 84300; 84443; 85014; 85018; 85025; 85027; 85045; 85049; 85060; 85097; 85610; 86850; 86900; 86901; 86922; 88305; 88311; 88313; A9270-GY; C1776; G8978-GP-CK; G8979-GP-CI; J0330; J0690; J1100; J1170; J1200; J1644; J1650; J1815; J1885; J2060; J2250; J2405; J2704; J2710; J2765; J2795; J3010; P9040; Q9967

== ENCOUNTER 2019-06-13 13:58 | Emergency (ER) | payer MEDICARE, OTHER ==
--- OUTSIDE RECORDS SUMMARY | 2019-06-13 14:30 | XMS REPORT | Continuity of Care Document ---
:1960 External Reference #:[id number] Author Name Uri Zafar M.D. (transmitted by agent of provider Zuri Iniguez) Address [address] [place] [id number] Care Team Providers Name Role Phone Sebastian Baugh M.D. - Adult Medicine Care Team Information Inspector P[employer] Problems Active Problems Provider Date Chronic headache disorder Radha Lim M.D. Onset: 01/25/2015 Dissociative convulsions Radha Lim M.D. Onset: 01/25/2015 Lyme disease Radha Lim M.D. Onset: 01/25/2015 Sleep apnea Radha Lim M.D. Onset: 01/25/2015 Migraine without aura, not refractory Delmer Camejo M.D. Onset: 2017 Amnesia Delmer Camejo M.D. Onset: 02/15/2018 Communicating hydrocephalus Delmer Camejo M.D. Onset: 02/15/2018 Transient altered mental status Delmer Camejo M.D. Onset: 02/15/2018 Chronic fatigue syndrome Delmer Camejo M.D. Onset: 02/15/2018 Backache Delmer Camejo M.D. Onset: 04/15/2018 Chronic pain Delmer Camejo M.D. 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 Onset: 04/15/2018 metabolism disorder Abnormal results function studies of Delmer Camejo M.D. Onset: 04/15/2018 central nervous system Muscle weakness Delmer Camejo M.D. Onset: 06/09/2018 Nervous system symptoms Delmer Camejo M.D. Onset: 06/25/2018 Normal pressure hydrocephalus Dk Uribe M.D. Onset: 06/30/2018 Convalescence after surgery Dk Uribe M.D. Onset: 07/23/2018 Acute renal failure syndrome Anali Hilario Espinal NP Onset: 07/14/2018 Hyperkalemia Anali Espinal NP Onset: 07/14/2018 Type 2 diabetes mellitus Jeni Mchugh M.D. Onset: 07/15/2018 Essential hypertension Jeni Mchugh M.D. Onset: 07/15/2018 Subdural hemorrhage Jeni Mchugh M.D. Onset: 09/03/2018 Edema Delmer Camejo M.D. Onset: 10/22/2018 Hydrocephalic shunt catheter in situ Delmer Camejo M.D. Onset: 10/22/2018 Epilepsy Delmer Camejo M.D. Onset: 05/16/2019 Social History Type Date Description Comments Sex Unknown ETOH Use Rarely consumes alcohol Glass of wine, has not had since Sep 2017 Tobacco Use Start: Unknown Patient has never smoked Recreational Drug Use Denies Drug Use Smoking Status Reviewed: 05/16/19 Patient has never smoked Allergies, Adverse Reactions, Alerts Active Allergies Reaction Severity Comments Date Aspirin 05/13/2013 Sulfa Antibiotics 05/13/2013 Penicillins Increased bleeding 12/13/2013 Medications Active Medications SIG Qnty Indications Ordering Provider Date Oxycodone HCL 1 to 2 tab by 32tabs M17.11 Uri Zafar, 04/22/2019 5mg Tablets mouth in the M.D. evening as needed Amlodipine Besylate 1 by mouth Delmer Camejo, 01/20/2019 5mg every day M.D. Tablets Lyrica take 1 by mouth 180caps Paul Mckeon, 01/20/2019 300mg Capsules twice a day N.P. code d Trazodone HCL 4 tabs every Unknown 100mg night at Tablets bedtime prn Hydralazine HCL take one tablet Unknown 50mg by mouth three Tablets times a day Isosorbide Mononitrate one tab daily Unknown ER 30mg Tablets ER 24HR Clonidine HCL Take 1/2 Tab By Unknown 0.1mg Mouth Three Tablets Times A Day as Needed For SBP ?170 Or DBP >100 Hydrocodone-Acetaminop Unknown hen 10-325mg Tablets Duloxetine HCL 1 by mouth Unknown 30mg Caps every day DR Part Diphenhydramine HCL prn Unknown Maximum Strength 50mg Tablets Carvedilol 1 tab by mouth Unknown 25mg Tablets twice a day Ibuprofen 1 tab by mouth G43.009 Unknown 800mg Tablets for headache Androgel apply 5 pumps Unknown Gel daily. Metformin HCL 1 by mouth Unknown 1000mg twice a day Tablets Glipizide 1 by mouth bid Unknown 10mg Tablets Aspirin 1 po qd Unknown 81mg Tablets Zocor 1 po qday Unknown 40mg Tablets Synthroid 1 po qd Unknown 175mcg Tablets Immunizations Description No Information Available Vital Signs Date Vital Result Comment 05/16/2019 3:35pm Height 72 inches 6'0" Weight 257.00 lb Heart Rate 76 /min BP Systolic 118 mmHg BP Diastolic 78 mmHg BMI (Body Mass Index) 34.9 kg/m2 04/22/2019 1:15pm Height 72 inches 6'0" Weight 262.25 lb Heart Rate 79 /min BP Systolic Sitting 154 mmHg BP Diastolic Sitting 78 mmHg Respiratory Rate 16 /min Body Temperature 98.0 F O2 % BldC Oximetry 96 % BMI (Body Mass Index) 35.6 kg/m2 Results Description No Information Available Procedures Description No Information Available Medical Devices Description No Information Available Encounters Type Date Location Provider Dx Diagnosis Office Visit 04/22/2019 [facility], Mary7.11 Unilateral primary 1:30p St[facility] Install[facility] osteoarthritis, right knee Office Visit 01/20/2019 [facility] G91.2 (Idiopathic) 10:30a Wil Camejo M.D. normal pressure hydrocephalus I62.03 Nontraumatic chronic subdural hemorrhage Z98.2 Presence of cerebrospinal fluid drainage device E11.9 Type 2 diabetes mellitus without complications G89.29 Other chronic pain G40.909 Epilepsy, unsp, not intractable, without status epilepticus Assessments Date Code Description Provider 05/16/2019 G91.2 (Idiopathic) normal pressure hydrocephalus Delmer Camejo M.D. 05/16/2019 I62.03 Nontraumatic chronic subdural hemorrhage Delmer Camejo M.D. 05/16/2019 Z98.2 Presence of cerebrospinal fluid drainage Delmer Camejo M.D. device 05/16/2019 G40.909 Epilepsy, unspecified, not intractable, Delmer Camejo M.D. without status epile 04/25/2019 M17.11 Unilateral primary osteoarthritis, right Uri Zafar M.D. knee 04/22/2019 M17.11 Unilateral primary osteoarthritis, right Uri Zafar M.D. knee 01/20/2019 G91.2 (Idiopathic) normal pressure hydrocephalus Delmer Camejo M.D. 01/20/2019 I62.03 Nontraumatic chronic subdural hemorrhage Delmer Camejo M.D. 01/20/2019 Z98.2 Presence of cerebrospinal fluid drainage Delmer Camejo M.D. device 01/20/2019 E11.9 Type 2 diabetes mellitus without Delmer Camejo M.D. complications 01/20/2019 G89.29 Other chronic pain Delmer Camejo M.D. 01/20/2019 G40.909 Epilepsy, unspecified, not intractable, Delmer Camejo M.D. without status epile Plan of Treatment Future Appointment(s):08/18/2019 2:45 pm - [facility] Camejo M.D. at [facility]06/02/2019 11:15 am - Uri Zafar M.D. at [facility] AT [facility]13/26/2019 7:30 am - Rogelio Mitchell PA-C at [facility]/23/2019 7:30 am - Uri [facility]af[facility] M.D. at [facility]/18/2019 10:00 am - Uri Zafar M.D. at [facility]05/16/2019 - Delmer Camejo M.D.G91.2 ( Idiopathic) normal pressure hydrocephalusFollow up:Follow up in 3 njyyppR24.03 Nontraumatic chronic subdural qxwvoltjqyM35.2 Presence of cerebrospinal fluid drainage nluehlZ91.909 Epilepsy, unspecified, not intractable, without status epile Functional Status Description No Information Available Mental Status Description No Information Available Referrals Description No Information Available
--- OUTSIDE RECORDS SUMMARY | 2019-06-13 14:30 | XMS REPORT | Continuity of Care Document ---
:1960 External Reference #:[id number] Author Name Uri Zafar M.D. (transmitted by agent of provider Silvia Mcgee) Address [address] [place] [id number] Care Team Providers Name Role Phone Sebastian Baugh M.D. - Adult Medicine Care Team Information Gold Beater Problems Active Problems Provider Date Chronic headache [...] NP Onset: 07/14/2018 Type 2 diabetes mellitus Jnei Mchugh M.D. Onset: 07/15/2018 Essential hypertension Jeni [...] Use Denies Drug Use Smoking Status Reviewed: 05/18/19 Patient has never smoked Allergies, Adverse Reactions, [...] Available Vital Signs Date Vital Result Comment 05/18/2019 10:16am Height 72 inches 6'0" Weight 270.00 lb Heart Rate 75 /min BP Systolic 148 mmHg BP Diastolic 78 mmHg Body Temperature 98.2 F Pain Level 7 BMI (Body Mass Index) 36.6 kg/m2 05/16/2019 3:35pm Height 72 inches 6'0" Weight 257.00 lb Heart Rate 76 /min BP Systolic 118 mmHg BP Diastolic 78 mmHg BMI (Body Mass Index) 34.9 kg/m2 Results Description No Information Available Procedures Description No Information Available Medical Devices Description No Information Available Encounters Type Date Location Provider Dx Diagnosis Office Visit 04/22/2019 [facility], M17.11 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 at [facility]06/02/2019 11:15 am - Uri Zafar M.D. at [facility] AT F[facility]yux03/26/2019 8:00 am - Rogelio Mitchell PA-C at [facility]05/23/2019 8:00 am - Uri Zaf[facility] M.D. at [facility] Functional Status Description No Information Available Mental Status Description No Information Available Referrals Description No Information Available
--- OUTSIDE RECORDS SUMMARY | 2019-06-13 14:30 | XMS REPORT | Continuity of Care Document ---
:1960 External Reference #:[id number] Author Name Delmer Camejo M.D. (transmitted by agent of provider Ash Duenas) Address [address] [facility], [place] [address] Care Team Providers Name Role Phone Sebastian Baugh M.D. - Adult Medicine Care Team Information Technician Automated Equipment [phone] Problems Active Problems Provider Date Chronic headache [...] Onset: 07/23/2018 Acute renal failure syndrome Anali Espinal NP Onset: 07/14/2018 Hyperkalemia Anali Espinal [...] mouth Unknown 30mg Caps every day DR [place] Diphenhydramine HCL prn Unknown Maximum Strength 50mg [...] Date Location Provider Dx Diagnosis Office Visit 05/16/2019 [facility] Ma1.2 ( Idiopathic) normal 3:30p [facility] pressure hydrocephalus I62.03 Nontraumatic chronic subdural hemorrhage Z98.2 Presence of cerebrospinal fluid drainage device G40.909 Epilepsy, unsp, not intractable, without status epilepticus Office 01/20/2019 [facility] G91.2 (Idiopathic) Visit 10:30a Wil Camejo M.D. normal pressure hydrocephalus [...] 2:45 pm - Delmer Camejo M.D. at [facility]06/02/2019 11:15 am - Uri Zafar M.D. at [facility] AT Iikxzfta89/26/2019 7:30 am - Rogelio Mitchell PA-C at [facility]/23/2019 7:30 am - Uri Zafar M.D. at [facility]/18/2019 10:00 am - Uri Zafar M.D. at [facility]05/16/2019 - Delmer Camejo M.D.G91.2 ( Idiopathic) normal pressure hydrocephalusFollow up:Follow up in 3 nieaalG64.03 Nontraumatic chronic subdural mzsilltmatP64.2 Presence of cerebrospinal fluid drainage youwvzR04.909 Epilepsy, unspecified, not intractable, without status epile Functional Status Description No Information Available Mental Status Description No Information Available Referrals Description No Information Available
[2019-06-13] MEDS ORDERED: HYDROmorphone INJ* 0.5 MG/0.5 ML SYRINGE IM ONE (14:56)
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
[2019-06-13 15:16] LABS: INR 1.38 (0.82-1.09)
[2019-06-13 15:34] LABS: ABS Basophils 0.1 10^3/ul (0-0.2); ABS Lymphocytes 0.7 10^3/ul (1.0-4.8); ABS Monocytes 0.7 10^3/ul (0-0.8); ABS Neutrophils 5.1 10^3/ul (1.5-7.7); Eosinophil % 0.7 %; Hematocrit 27 % (42-52); Mean Corpuscular HGB Conc 34 g/dL (31-36); Mean Corpuscular Hemoglobin 28 pg (27-31); Mean Corpuscular Volume 84 fL (80-94); Mean Platelet Volume 6.8 fL (7.4-10.4); Nucleated Red Blood Cells % 0.1; Platelet Count 501 10^3/uL (150-450); Red Cell Distribution Width 15 % (10-15); White Blood Count 6.5 10^3/uL (3.5-10.8)
[2019-06-13 15:41] LABS: Albumin 3.9 g/dL (3.2-5.2); Albumin/Globulin Ratio 1.2 (1-3); BUN/Creatinine Ratio 16.1 (8-20); C Reactive Protein 37.49 mg/L (<8.01); Calcium 8.9 mg/dL (8.6-10.3); EGFR African American 100.6 (>60); EGFR Non-African American 83.2 (>60); Globulin 3.3 g/dL (2-4); Total Bilirubin 0.3 mg/dL (0.2-1.0); Total Protein 7.2 g/dL (6.4-8.9)
--- NOTE | 2019-06-13 15:56 | ED ---
Progress - Progress Note Progress Note: I evaluated the patient at the request of Sha CARROLL. The patient endorses sweats and chills, pain since surgery 3 weeks ago, at which point he had a right knee replacement. The right knee is warm to the touch, it is mildly swollen. My treatment recommendations at this point are orthopedics consultation, with disposition based upon the recommendations. Course/Dx - Diagnoses Provider Diagnoses: Postoperative pain of right knee Discharge ED - Sign-Out/Discharge Documenting (check all that apply): Patient Departure Patient Received Moderate/Deep Sedation with Procedure: No - Discharge Plan Condition: Stable Disposition: HOME Patient Education Materials: Knee Pain (ED) Referrals: Uri Zafar MD [Medical Doctor] - No Primary Care Phys,NOPCP [Primary Care Provider] - Additional Instructions: Per Dr. Zafar increase coumadin to 6mg daily. Follow-up with Dr. Zafar had your scheduled appointment this coming . - Billing Disposition and Condition Condition: STABLE Disposition: Home
--- NOTE | 2019-06-13 17:16 | CONS ---
CONSULTATION REPORT: DATE OF CONSULT: 06/13/19 - EMERGENCY DEPT ATTENDING ORTHOPEDIC PROVIDER: Dr. Zafar. CHIEF COMPLAINT: Fatigue and right knee pain. HISTORY OF PRESENT ILLNESS: The patient is a 59-year-old male, he presented to [facility] on 06/13/[facility] with a chief complaint of fatigue and right knee pain. He does have history of right total knee replacement on 05/23/[address] Zafar. Pain has been present since surgery without any significant increase. He has not had a fall or trauma to the knee. He remains able to bear weight and to bend the knee, though reports continued pain. There is no radiation of pain. The patient reports that since he has been home, he has been very fatigued and had significant right knee pain. Post operatively after his knee replacement he developed an ileus and also had significant anemia for which he has been following with Dr. Beasley. He had a bone marrow biopsy done and has upcoming appointments with Dr. Beasley as well. His ileus resolved with glycerin suppositories and enemas. PAST MEDICAL HISTORY: Significant for epilepsy, hydrocephalic shunt, subdural hemorrhage, hypertension, diabetes type 2, hyperkalemia, acute renal failure, normal pressure hydrocephalus, hemolytic anemia, chronic pain, chronic fatigue syndrome, transient altered mental status, communicating hydrocephalus, amnesia , migraines without aura, Lyme disease, sleep apnea, dissociative convulsions, chronic headache disorder, postop ileus. MEDICATION ALLERGIES: ASPIRIN, PENICILLIN, SULFA, NSAIDS, STERI-STRIPS. FAMILY HISTORY: Significant for diabetes, hypertension. SOCIAL HISTORY: He lives with his . Rarely consumes alcohol. REVIEW OF SYSTEMS: General: Denies fever. Confirms feeling of chills and fatigue. HEENT: No headache. Cardiac: No chest pain. Respiratory: No shortness of breath. GI: No abdominal pain. No constipation. Musculoskeletal : Positive for right lower extremity pain localized to the knee. Neuro: Denies any numbness or tingling in the right lower extremity. PHYSICAL EXAM: Vital Signs: Temperature 98.3, pulse rate 88, respiratory rate 22, oxygen saturation 96%, and blood pressure 169/85. General: No acute distress, though the patient appears very fatigued, he is carrying on appropriate conversation. HEENT: Head is normocephalic, atraumatic. Respiratory: Normal rate and effort of breathing. Abdomen: Soft, nondistended. Musculoskeletal: Moving bilateral upper extremities well without tenderness. Lower extremities: Left lower extremity: Skin envelope is intact, nontender. Moves all joints well. Right lower extremity: Skin envelope intact, well healing surgical incisions of knee and pin sites on anterior leg without discharge or erythema. There is no erythema of the knee. He has mild postoperative swelling about the knee. Passive range of motion from 5 to 70 is nonpainful with tightness at end range of motion. Globally tender to palpation about the knee, no point tenderness. Hip, ankle and MTP flexion and extension are nonpainful. Neuro: Sensation intact to light touch throughout the right lower extremity. DP 2+ right lower extremity. Capillary refill less than 2 seconds distally. He does have some dependent ecchymosis down into the medial foot, that is nontender to palpation. ASSESSMENT: No sign of infection of the right knee. The patient is able to bear weight, passive ROM of the knee without pain, there is no erythema. He is afebrile. White blood cell count 6.5. Venous Doppler was completed, no evidence for DVT. PLAN: The patient can be weightbearing as tolerated. He has an appointment to follow up with Dr. Zafar on the of this month. I discussed this case with Dr. Zafar who agrees with assessment and plan. His INR today is 1.38 and Coumadin dosing starting on today should be 6 mg daily until the when he should have a repeat INR draw for further dosing instruction, I have discussed this with the patient verbally and in writing. Xrays have been ordered , which will need review when completed. I would recommend that the emergency room complete their workup for his fatigue. Discussed with treating PA his post op course including ileus and anemia. If he develops any fever, redness, worsening pain of the knee, inability to bear weight he should call the orthopedic office or return to the emergency room. CARLY STRATTON [id number]/CPS #: [id number] MTDD
[2019-06-13 17:17] VITALS: BP 154/88
[2019-06-13 17:31] LABS: Erythrocyte Sed Rate 95 mm/Hr (0-19)
== END 2019-06-13 17:16 | disposition home or self-care (01) ==
LOC: ED 13:58
DX: G89.18 Other acute postprocedural pain (principal); M25.561 Pain in right knee; E11.9 Type 2 diabetes mellitus without complications; E03.9 Hypothyroidism, unspecified; I10 Essential (primary) hypertension; D57.1 Sickle-cell disease without crisis; F41.9 Anxiety disorder, unspecified; Z90.89 Acquired absence of other organs; Z96.651 Presence of right artificial knee joint; Z79.01 Long term (current) use of anticoagulants; Z79.84 Long term (current) use of oral hypoglycemic drugs; Z79.899 Other long term (current) drug therapy; Z88.6 Allergy status to analgesic agent; Z88.0 Allergy status to penicillin; Z88.2 Allergy status to sulfonamides
CPT/HCPCS: 36415; 80053; 83605; 85025; 85610; 85652; 86140; 86618; 96372; 99282; J1170

== ENCOUNTER 2020-03-13 12:09 | Inpatient (IN) ==
[2020-03-13] MEDS ORDERED: Ondansetron ODT 4 mg TAB 4 MG TAB PO ONE (12:12)
[2020-03-13] MEDS ORDERED: NS 0.9% 1000 ml BAG 1,000 ML IV ONE (12:54)
[2020-03-13] MEDS ORDERED: Metoclopramide 5 MG/ML VIAL (10 mg) IV SLOW PU ONE (12:55)
[2020-03-13] MEDS ORDERED: HYDROmorphone 0.5 MG/0.5 ML SYRINGE IV ONE (13:14)
[2020-03-13] MEDS ORDERED: Prochlorperazine 5 mg/ml 2 ml VIAL (10 mg) IV ONE (14:50)
[2020-03-13 15:12] LABS: ABS Lymphocytes 0.7 10^3/ul (1.0-4.8); ABS Monocytes 0.6 10^3/ul (0-0.8); Eosinophil % 0.3 %; Hematocrit 39 % (42-52); Hemoglobin 13.1 g/dL (14.0-18.0); Lymphocyte % 7.7 %; Mean Corpuscular HGB Conc 34 g/dL (31-36); Mean Corpuscular Hemoglobin 29 pg (27-31); Mean Corpuscular Volume 85 fL (80-94); Mean Platelet Volume 8.4 fL (7.4-10.4); Platelet Count 241 10^3/uL (150-450); Red Blood Count 4.54 10^6 /uL (4.18-5.48); Red Cell Distribution Width 14 % (10-15); White Blood Count 9.5 10^3/uL (3.5-10.8)
[2020-03-13 15:17] LABS: INR 1.13 (0.82-1.09)
[2020-03-13] MEDS ORDERED: Dextrose 50% Syringe 50 ml 25 GM/50 ML SYRINGE IV PUSH PRN (15:18)
[2020-03-13 15:36] LABS: Albumin 4.1 g/dL (3.2-5.2); Albumin/Globulin Ratio 1.5 (1-3); BUN/Creatinine Ratio 17.5 (8-20); Calcium 9.1 mg/dL (8.6-10.3); EGFR African American 119.3 (>60); EGFR Non-African American 98.6 (>60); Globulin 2.7 g/dL (2-4); Potassium 4.2 mmol/L (3.5-5.0); Total Bilirubin 0.3 mg/dL (0.2-1.0); Total Protein 6.8 g/dL (6.4-8.9)
[2020-03-13] MEDS: Insulin LISPRO 100 units/ml(*) SUBCUT SCH ×2 (17:53→21:11)
[2020-03-13] MEDS: Ondansetron 4 mg VIAL 2 MG/ML 2 ml VIAL IV PRN (21:05)
[2020-03-13] MEDS: Heparin 5000 UNITS/ML VIAL(*) 1 ml vial SUBCUT SCH (21:08)
[2020-03-13] MEDS: oxyCODONE SR 10 mg TAB (*) PO SCH (21:10)
[2020-03-13] MEDS: Pregabalin 100 mg CAP (*) PO SCH (21:10)
[2020-03-13] MEDS: oxyCODONE SR 20 mg TAB (*) PO SCH (21:10)
[2020-03-14] MEDS: Ondansetron 4 mg VIAL 2 MG/ML 2 ml VIAL IV PRN ×2 (03:51→12:36)
[2020-03-14] MEDS: Heparin 5000 UNITS/ML VIAL(*) 1 ml vial SUBCUT SCH ×3 (05:34→21:31)
[2020-03-14] MEDS: Prochlorperazine 5 mg/ml 2 ml VIAL (10 mg) IV PRN ×2 (09:09→16:46)
[2020-03-14] MEDS: Insulin LISPRO 100 units/ml(*) SUBCUT SCH ×4 (09:13→21:40)
[2020-03-14] MEDS: DULoxetine DR 20 mg CAP PO SCH (09:14)
[2020-03-14] MEDS: Aspirin EC 81 mg TAB.EC (enteric coated) PO SCH (09:16)
[2020-03-14] MEDS: Pregabalin 100 mg CAP (*) PO SCH ×2 (09:16→21:27)
[2020-03-14] MEDS: Isosorbide Mononit ER 30mg TAB PO SCH (09:16)
[2020-03-14] MEDS: oxyCODONE SR 10 mg TAB (*) PO SCH ×2 (09:16→21:26)
[2020-03-14] MEDS: oxyCODONE SR 20 mg TAB (*) PO SCH ×2 (09:17→21:29)
[2020-03-15] MEDS: Ondansetron 4 mg VIAL 2 MG/ML 2 ml VIAL IV PRN ×2 (03:34→11:27)
[2020-03-15] MEDS: Heparin 5000 UNITS/ML VIAL(*) 1 ml vial SUBCUT SCH (05:54)
[2020-03-15] MEDS: Insulin LISPRO 100 units/ml(*) SUBCUT SCH ×2 (09:32→12:08)
[2020-03-15] MEDS: oxyCODONE SR 10 mg TAB (*) PO SCH (09:33)
[2020-03-15] MEDS: Pregabalin 100 mg CAP (*) PO SCH (09:33)
[2020-03-15] MEDS: Isosorbide Mononit ER 30mg TAB PO SCH (09:33)
[2020-03-15] MEDS: DULoxetine DR 20 mg CAP PO SCH (09:34)
[2020-03-15] MEDS: Aspirin EC 81 mg TAB.EC (enteric coated) PO SCH (09:34)
[2020-03-15] MEDS: oxyCODONE SR 20 mg TAB (*) PO SCH (09:35)
[2020-03-15 12:40] VITALS: BP 122/71
== END 2020-03-15 12:10 | disposition home or self-care (01) | DRG 552 ==
LOC: MED 12:09 → ED 12:09 → MED 15:56
PROVIDERS: ADMIT Internal Medicine; ATTEND Internal Medicine

== ENCOUNTER 2020-03-27 20:07 | Observation (INO) ==
[2020-03-27] MEDS ORDERED: Ondansetron 4 mg VIAL 2 MG/ML 2 ml VIAL IV ONE (20:36)
[2020-03-27 20:43] LABS: ABS Eosinophils 0.1 10^3/ul (0-0.6); ABS Lymphocytes 1.1 10^3/ul (1.0-4.8); ABS Monocytes 0.5 10^3/ul (0-0.8); Eosinophil % 1.3 %; Hematocrit 34 % (42-52); Hemoglobin 11.7 g/dL (14.0-18.0); Lymphocyte % 21.1 %; Mean Corpuscular HGB Conc 35 g/dL (31-36); Mean Corpuscular Hemoglobin 30 pg (27-31); Mean Corpuscular Volume 86 fL (80-94); Mean Platelet Volume 8.2 fL (7.4-10.4); Platelet Count 245 10^3/uL (150-450); Red Blood Count 3.93 10^6 /uL (4.18-5.48); Red Cell Distribution Width 14 % (10-15); White Blood Count 5.1 10^3/uL (3.5-10.8)
[2020-03-27] MEDS ORDERED: HYDROmorphone 1 MG/1 ML SYRINGE IV ONE (20:49)
[2020-03-27 21:02] LABS: ALT 16 U/L (7-52); Albumin 4.1 g/dL (3.2-5.2); Albumin/Globulin Ratio 1.5 (1-3); Alkaline Phosphatase 42 U/L (34-104); Blood Urea Nitrogen 18 mg/dL (6-24); CO2 Carbon Dioxide 24 mmol/L (22-32); Calcium 9.2 mg/dL (8.6-10.3); Chloride 102 mmol/L (101-111); EGFR African American 92.2 (>60); EGFR Non-African American 76.2 (>60); Globulin 2.8 g/dL (2-4); Glucose 230 mg/dL (70-100); Sodium 136 mmol/L (135-145); Total Protein 6.9 g/dL (6.4-8.9)
[2020-03-27 21:11] LABS: Anion Gap 10 mmol/L (2-11)
[2020-03-27] MEDS ORDERED: Morphine 2 MG/ML SYRINGE IV PRN (21:33)
[2020-03-27] MEDS ORDERED: Dextrose 50% Syringe 50 ml 25 GM/50 ML SYRINGE IV PUSH PRN (21:37)
[2020-03-27 22:08] LABS: Potassium Redraw 4.2 mmol/L (3.5-5.0)
[2020-03-27] MEDS: OXYCODONE 15 MG PO SCH (23:08)
[2020-03-28] MEDS: HYDROmorphone 0.5 MG/0.5 ML SYRINGE IV PRN ×3 (03:06→11:49)
[2020-03-28] MEDS: Ondansetron 4 mg VIAL 2 MG/ML 2 ml VIAL IV PRN ×2 (03:11→07:52)
[2020-03-28] MEDS ORDERED: HYDROmorphone 0.5 MG/0.5 ML SYRINGE IV SLOW PU ONE (04:03)
[2020-03-28] MEDS: Insulin LISPRO 100 units/ml(*) SUBCUT SCH ×2 (08:26→11:47)
[2020-03-28] MEDS: OXYCODONE 15 MG PO SCH (08:30)
[2020-03-28] MEDS ORDERED: CMCS: Simvastatin 20 mg TAB (NF) PO SCH (09:00)
[2020-03-28] MEDS ORDERED: Pregabalin 100 mg CAP (*) PO SCH (09:00)
[2020-03-28] MEDS ORDERED: Isosorbide Mononit ER 30mg TAB PO SCH (09:00)
[2020-03-28] MEDS ORDERED: DULoxetine DR 20 mg CAP PO SCH (09:00)
[2020-03-28 11:42] VITALS: BP 124/65
== END 2020-03-28 14:54 | disposition home or self-care (01) ==
LOC: ED 20:07 → MEDTELE 20:07
PROVIDERS: ADMIT Internal Medicine; ATTEND Internal Medicine

== ENCOUNTER 2020-04-17 15:26 | Observation (INO) ==
[2020-04-17] MEDS ORDERED: Ondansetron 4 mg VIAL 2 MG/ML 2 ml VIAL IV ONE (15:33)
[2020-04-17] MEDS ORDERED: HYDROmorphone 1 MG/1 ML SYRINGE IV ONE ×2 (15:46→16:59)
[2020-04-17 16:15] LABS: ABS Lymphocytes 0.9 10^3/ul (1.0-4.8); ABS Monocytes 0.6 10^3/ul (0-0.8); Eosinophil % 0.2 %; Hematocrit 34 % (42-52); Hemoglobin 11.7 g/dL (14.0-18.0); Lymphocyte % 13.5 %; Mean Corpuscular HGB Conc 34 g/dL (31-36); Mean Corpuscular Hemoglobin 30 pg (27-31); Mean Corpuscular Volume 87 fL (80-94); Mean Platelet Volume 8.2 fL (7.4-10.4); Platelet Count 239 10^3/uL (150-450); Red Blood Count 3.95 10^6 /uL (4.18-5.48); Red Cell Distribution Width 15 % (10-15); White Blood Count 6.5 10^3/uL (3.5-10.8)
[2020-04-17 16:58] LABS: Albumin 4.3 g/dL (3.2-5.2); Albumin/Globulin Ratio 1.7 (1-3); BUN/Creatinine Ratio 19.8 (8-20); Calcium 9.5 mg/dL (8.6-10.3); EGFR African American 86.2 (>60); EGFR Non-African American 71.3 (>60); Globulin 2.6 g/dL (2-4); Potassium 4.5 mmol/L (3.5-5.0); Total Bilirubin 0.4 mg/dL (0.2-1.0); Total Protein 6.9 g/dL (6.4-8.9)
[2020-04-17] MEDS ORDERED: Dextrose 50% Syringe 50 ml 25 GM/50 ML SYRINGE IV PUSH PRN (17:55)
[2020-04-17] MEDS ORDERED: OXYCODONE 15 MG PO SCH (18:00)
[2020-04-17] MEDS: HYDROmorphone 1 MG/1 ML SYRINGE IV SLOW PU PRN (20:22)
[2020-04-17] MEDS: Ondansetron 4 mg VIAL 2 MG/ML 2 ml VIAL IV PRN (20:23)
[2020-04-17] MEDS ORDERED: Dulaglutide (NF) 1.5 MG/0.5 ML SYRINGE SUBCUT SCH (21:00)
[2020-04-17] MEDS: Simvastatin 20 mg TAB (NF) PO SCH (22:07)
[2020-04-17] MEDS: NS 0.9% 1000 ml BAG 1,000 ML IV SCH (23:52)
[2020-04-18] MEDS: HYDROmorphone 1 MG/1 ML SYRINGE IV SLOW PU PRN ×8 (00:58→23:09)
[2020-04-18] MEDS: Ondansetron 4 mg VIAL 2 MG/ML 2 ml VIAL IV PRN ×2 (02:22→08:13)
[2020-04-18] MEDS: DULoxetine DR 20 mg CAP PO SCH (08:15)
[2020-04-18] MEDS: Isosorbide Mononit ER 30mg TAB PO SCH (08:16)
[2020-04-18] MEDS: Aspirin EC 81 mg TAB.EC (enteric coated) PO SCH (08:17)
[2020-04-18 09:44] LABS: ABS Eosinophils 0.1 10^3/ul (0-0.6); ABS Lymphocytes 1.1 10^3/ul (1.0-4.8); ABS Monocytes 0.5 10^3/ul (0-0.8); ABS Neutrophils 4.2 10^3/ul (1.5-7.7); Eosinophil % 0.9 %; Hematocrit 32 % (42-52); Hemoglobin 10.9 g/dL (14.0-18.0); Lymphocyte % 18.5 %; Mean Corpuscular HGB Conc 34 g/dL (31-36); Mean Corpuscular Hemoglobin 29 pg (27-31); Mean Corpuscular Volume 87 fL (80-94); Mean Platelet Volume 8.1 fL (7.4-10.4); Platelet Count 206 10^3/uL (150-450); Red Blood Count 3.72 10^6 /uL (4.18-5.48); Red Cell Distribution Width 15 % (10-15); White Blood Count 5.9 10^3/uL (3.5-10.8)
[2020-04-18 09:50] LABS: BUN/Creatinine Ratio 23.3 (8-20); Calcium 8.4 mg/dL (8.6-10.3); EGFR African American 104.2 (>60); EGFR Non-African American 86.1 (>60); Potassium 4.5 mmol/L (3.5-5.0)
[2020-04-18] MEDS: NS 0.9% 1000 ml BAG 1,000 ML IV SCH ×2 (10:04→19:54)
[2020-04-18] MEDS: Lactulose 30 ml UDC PO PRN (19:59)
[2020-04-18] MEDS: Simvastatin 20 mg TAB (NF) PO SCH (20:53)
[2020-04-19] MEDS: HYDROmorphone 1 MG/1 ML SYRINGE IV SLOW PU PRN ×3 (02:41→09:13)
[2020-04-19] MEDS: Ondansetron 4 mg VIAL 2 MG/ML 2 ml VIAL IV PRN ×2 (02:42→09:12)
[2020-04-19] MEDS: NS 0.9% 1000 ml BAG 1,000 ML IV SCH (06:10)
[2020-04-19] MEDS: Isosorbide Mononit ER 30mg TAB PO SCH (08:40)
[2020-04-19] MEDS: DULoxetine DR 20 mg CAP PO SCH (08:40)
[2020-04-19] MEDS: Aspirin EC 81 mg TAB.EC (enteric coated) PO SCH (08:40)
[2020-04-19] MEDS: Lactulose 30 ml UDC PO PRN (11:55)
[2020-04-19] MEDS ORDERED: HYDROmorphone 1 MG/1 ML SYRINGE IV SLOW PU PRN (13:52)
[2020-04-19 15:29] VITALS: BP 139/66
== END 2020-04-19 16:40 | disposition home or self-care (01) ==
LOC: ED 15:26 → SSU 15:26
PROVIDERS: ADMIT Internal Medicine; ATTEND Internal Medicine